=== PATIENT | female | born 1980 | race Caucasian/White ===

== ENCOUNTER 2016-11-24 07:30 | Emergency (ER) | payer OTHER ==
[~2016-11-24] VITALS: Ht 165.1 cm; Wt 100.4 kg
[~2016-11-24 07:30] MED LIST: ONDA8TAB7 PO
[2016-11-24 07:32] VITALS: TEMP 36.7; Ht 165.1 cm; Wt 100.4 kg
[2016-11-24] MEDS ORDERED: ZFR/8 PO (07:46)
[2016-11-24] MEDS ORDERED: KETOROLAC TROMETHAMINE 30 MG/ML VIAL IV STA (07:53)
[2016-11-24] MEDS ORDERED: HYDROmorphone INJ 1 MG/ML SYR IV STA (07:53)
[2016-11-24] MEDS ORDERED: DiphenhydrAMINE HCL 50 MG/ML VIAL IV STA (07:53)
[2016-11-24 08:22] LABS: BASO % 0.4 %; BASO ABS # 0.02 K/uL (0-0.2); COMPLETE YES; EOS % 0.2 %; HEMATOCRIT 42.5 % (37-47); IG% 0.2 %; LYMPH % 26.6 %; LYMPH ABS # 1.44 K/uL (1.2-3.4); MEAN CELL VOLUME 89.1 fL (80-100); MEAN CORPUSCULAR HEMOGLOBIN 30.4 pg (25-34); MEAN CORPUSCULAR HGB CONC 34.1 g/dl (32-36); MEAN PLATELET VOLUME 10.3 fL (7.4-10.4); MONO % 9.4 %; NEUT % 63.2 %; PLATELET COUNT 198 K/uL (130-400); RED BLOOD COUNT 4.77 M/uL (4.2-5.4); WHITE BLOOD COUNT 5.42 K/uL (4.8-10.8)
--- NOTE | 2016-11-24 08:26 | DIAGNOSTIC IMAGING REPORT ---
SINGLE VIEW CHEST CLINICAL HISTORY: Dyspnea. FINDINGS: An AP, portable, upright chest radiograph is compared to study dated 09/24/2015 and correlated with chest CT dated 01/05/2013. The examination is degraded by portable technique, large body habitus, and patient rotation. The cardiomediastinal silhouette is unremarkable. The lungs and pleural spaces are clear. No pneumothorax is seen. The bony thorax is grossly intact. IMPRESSION: No active disease in the chest. Electronically signed by: Carlton Berry M.D. 11/24/2016 8:24 AM Dictated Date/Time: 11/24/2016 8:23 AM
[2016-11-24 08:35] LABS: URINE APPEARANCE CLEAR (CLEAR); URINE BILIRUBIN NEG (NEG); URINE COLOR YELLOW; URINE EPITHELIAL CELL AUTO >30 /lpf (0-5); URINE NITRITE NEG (NEG); URINE SPECIFIC GRAVITY 1.015 (1.000-1.030); UROBILINOGEN NEG (NEG)
[2016-11-24 08:37] LABS: MANUAL MICROSCOPIC REQUIRED? NO; REVIEW REQ? NO
[2016-11-24 08:38] LABS: ALT/SGPT 20 U/L (12-78); BLOOD UREA NITROGEN 13 mg/dl (7-18); BUN/CREATININE RATIO 20.8 (10-20); CARBON DIOXIDE 24 mmol/L (21-32); CHLORIDE 109 mmol/L (98-107); GLUCOSE 86 mg/dl (70-99); SODIUM 139 mmol/L (136-145)
[2016-11-24 08:39] LABS: CALCIUM 8.4 mg/dl (8.5-10.1)
[2016-11-24 08:41] LABS: ALKALINE PHOSPHATASE 56 U/L (45-117); AST/SGOT 12 U/L (15-37)
[2016-11-24] MEDS ORDERED: SULFAMETHOXAZOLE/TRIMETHOPRIM DS 800/160MG TAB PO STA (09:05)
[2016-11-24] MEDS ORDERED: SULF800T23 PO (09:09)
[2016-11-24 09:10] VITALS: BP 178/120; PULSE 69; O2SAT 96
--- NOTE | 2016-11-24 09:20 | EMERGENCY ROOM VISIT NOTE ---
History Report prepared by Rosie: Malika Dillon Under the Supervision of: Dr. Elbert Vallejo M.D. First contact with patient: 07:36 Chief Complaint: HEADACHE Stated Complaint: MIGRAINE History of Present Illness The patient is a 36 year old female who presents to the Emergency Room with complaints of persistent headache starting yesterday. The patient has a history of migraines since she was a teenager. She has been to the ED previously for her migraines. She also follows with neurology. Her migraines often start with atmospheric pressure changes. She reports that yesterday her symptoms were different. She had diaphoresis, chills, and shaking. Currently, she has a right sided headache which is typical for her migraines. She denies any fevers, neck pain, cough, or sore throat. Source of History: patient Onset: yesterday Position: head Quality: ache Timing: other (persistent) Associated Symptoms: + chills, + diaphoresis, No cough, No fevers, No neck pain, No sorethroat Note: Pt reports shaking. Review of Systems See HPI for pertinent positives & negatives. A total of 10 systems reviewed and were otherwise negative. Past Medical & Surgical Medical Problems: (1) Alcohol intoxication (2) Alcohol intoxication (3) Anxiety (4) Cholecystectomy (5) Depressive Disorder Nec (6) Fractured nasal bones (7) Hypokalemia (8) Infected sebaceous cyst of skin (9) IVDU (intravenous drug user) (10) Migraine (11) Migraine (12) Migraine Unspecified W/O Intractable Migraine (13) Ureteral calculus, right (14) Ureteral calculus, right (15) Vasovagal syncope (16) Vasovagal syncope Family History Cancer Gallbladder disease Hypertension Social History Smoking Status: Current Every Day Smoker Alcohol Use: none Drug Use: none Marital Status: in relationship Housing Status: lives with significant other Occupation Status: employed Current/Historical Medications Scheduled Cetirizine (Zyrtec), 10 MG PO QAM Clonazepam (Clonazepam), 1 MG PO HS Lamotrigine (Lamictal), 100 MG PO BID Levonorgestrel (Iud) (Gris), 1 DOSE VAGRING [id number] Sulfa/Trimethoprim (Bactrim Ds 800MG/160MG), 1 TAB PO BID Venlafaxine Hcl (Effexor Extended Rel), 150 MG PO DAILY Scheduled PRN Acetamin/Butalbital/Caffeine (Fioricet), 1 TAB PO UD PRN for Migraine Ibuprofen Tab (Advil), 800 MG PO Q8 PRN for Headache Ondansetron (Ondansetron HCl), 8 MG PO Q6H PRN for Nausea Rizatriptan Benzoate (Rizatriptan Benzoate), 10 MG PO UD PRN for Migraine Allergies Coded Allergies: Sumatriptan (Verified Allergy, Intermediate, RED RASH, 11/24/16) Physical Exam Vital Signs Date Time Temp Pulse Resp B/P Pulse Ox O2 Delivery O2 Flow Rate FiO2 11/24/16 09:10 69 18 178/120 96 Room Air 11/24/16 08:27 61 11/24/16 07:32 36.7 76 18 159/101 98 Room Air Physical Exam GENERAL: Patient is a healthy-appearing well-nourished HEAD: Normocephalic atraumatic. No evidence of meningitis or encephalitis on exam. EYES: Ocular movements intact pupils equal and react to light OROPHARYNX mucous membranes are moist no exudates present no erythema or edema present NECK: Supple no nuchal rigidity CHEST: Good equal expansion LUNGS: Clear and equal to auscultation CARDIAC: Normal S1 and S2 ABDOMEN: Soft nontender no guarding BACK: No CVA tenderness EXTREMITIES: No pain upon palpation normal muscle strength in all groups no clubbing cyanosis or edema NEURO: Patient is following commands is answering questions appropriately. Alert and oriented x3 Cranial Nerves 2-12 grossly intact Medical Decision & Procedures ER Provider Diagnostic Interpretation: X-ray results as stated below per interpretation by me and the radiologist: SINGLE VIEW CHEST CLINICAL HISTORY: Dyspnea. FINDINGS: An AP, portable, upright chest radiograph is compared to study dated 09/24/2015 and correlated with chest CT dated 01/05/2013. The examination is degraded by portable technique, large body habitus, and patient rotation. The cardiomediastinal silhouette is unremarkable. The lungs and pleural spaces are clear. No pneumothorax is seen. The bony thorax is grossly intact. IMPRESSION: No active disease in the chest. Electronically signed by: Carlton Berry M.D. 11/24/2016 8:24 AM Dictated Date/Time: 11/24/2016 8:23 AM Laboratory Results 11/24/16 08:10 Red Blood Count 4.77, Mean Corpuscular Volume 89.1, Mean Corpuscular Hemoglobin 30.4, Mean Corpuscular Hemoglobin Concent 34.1, Mean Platelet Volume 10.3, Neutrophils (%) (Auto) 63.2, Lymphocytes (%) (Auto) 26.6, Monocytes (%) (Auto) 9.4, Eosinophils (%) (Auto) 0.2, Basophils (%) (Auto) 0.4, Neutrophils # (Auto) 3.43, Lymphocytes # (Auto) 1.44, Monocytes # (Auto) 0.51, Eosinophils # (Auto) 0.01, Basophils # (Auto) 0.02 11/24/16 08:10 Test 11/24/16 08:10 11/24/16 08:17 White Blood Count 5.42 K/uL (4.8-10.8) Red Blood Count 4.77 M/uL (4.2-5.4) Hemoglobin 14.5 g/dL (12.0-16.0) Hematocrit 42.5 % (37-47) Mean Corpuscular Volume 89.1 fL (80-100) Mean Corpuscular Hemoglobin 30.4 pg (25-34) Mean Corpuscular Hemoglobin Concent 34.1 g/dl (32-36) Platelet Count 198 K/uL (130-400) Mean Platelet Volume 10.3 fL (7.4-10.4) Neutrophils (%) (Auto) 63.2 % Lymphocytes (%) (Auto) 26.6 % Monocytes (%) (Auto) 9.4 % Eosinophils (%) (Auto) 0.2 % Basophils (%) (Auto) 0.4 % Neutrophils # (Auto) 3.43 K/uL (1.4-6.5) Lymphocytes # (Auto) 1.44 K/uL (1.2-3.4) Monocytes # (Auto) 0.51 K/uL (0.11-0.59) Eosinophils # (Auto) 0.01 K/uL (0-0.5) Basophils # (Auto) 0.02 K/uL (0-0.2) RDW Standard Deviation 45.7 fL (36.4-46.3) RDW Coefficient of Variation 14.0 % (11.5-14.5) Immature Granulocyte % (Auto) 0.2 % Immature Granulocyte # (Auto) 0.01 K/uL (0.00-0.02) Anion Gap 6.0 mmol/L (3-11) Est Creatinine Clear Calc Drug Dose 149.2 ml/min Estimated GFR () 134.0 Estimated GFR (Non- 115.6 BUN/Creatinine Ratio 20.8 (10-20) Calcium Level 8.4 mg/dl (8.5-10.1) Total Bilirubin 0.3 mg/dl (0.2-1) Direct Bilirubin < 0.1 mg/dl (0-0.2) Aspartate Amino Transf (AST/SGOT) 12 U/L (15-37) Alanine Aminotransferase (ALT/SGPT) 20 U/L (12-78) Alkaline Phosphatase 56 U/L (45-117) Total Protein 7.2 gm/dl (6.4-8.2) Albumin 3.6 gm/dl (3.4-5.0) Lipase 87 U/L (73-393) Urine Color YELLOW Urine Appearance CLEAR (CLEAR) Urine pH 7.0 (4.5-7.5) Urine Specific [place] 1.015 (1.000-1.030) Urine Protein NEG (NEG) Urine Glucose (UA) NEG (NEG) Urine Ketones NEG (NEG) Urine Occult Blood NEG (NEG) Urine Nitrite NEG (NEG) Urine Bilirubin NEG (NEG) Urine Urobilinogen NEG (NEG) Urine Leukocyte Esterase MODERATE (NEG) Urine WBC (Auto) 5-10 /hpf (0-5) Urine RBC (Auto) 0-4 /hpf (0-4) Urine Hyaline Casts (Auto) 1-5 /lpf (0-5) Urine Epithelial Cells (Auto) >30 /lpf (0-5) Urine Bacteria (Auto) NEG (NEG) Urine Test NEG (NEG) Labs reviewed by ED physician. Medications Administered Medications (Trade) Dose Ordered Sig/Ron Route Start Time Stop Time Status Last Admin Dose Admin Hydromorphone HCl (Dilaudid Inj) 1 mg NOW STAT IV 11/24/16 07:53 11/24/16 07:55 DC 11/24/16 08:22 1 MG Diphenhydramine HCl (Benadryl Inj) 50 mg NOW STAT IV 11/24/16 07:53 11/24/16 07:55 DC 11/24/16 08:22 50 MG Ketorolac Tromethamine (Toradol Inj) 30 mg NOW STAT IV 11/24/16 07:53 11/24/16 07:55 DC 11/24/16 08:22 30 MG Trimethoprim/ Sulfamethoxazole (Septra Ds 800/ 160MG Tab) 1 tab NOW STAT PO 11/24/16 09:05 11/24/16 09:06 DC 11/24/16 09:14 1 TAB ED Course 0748: Past medical records reviewed. The patient was evaluated in room B5. A complete history and physical examination was performed. 0753: Toradol Inj 30 mg IV, Benadryl Inj 50 mg IV, Dilaudid Inj 1 mg IV. 0848: Upon reexamination the patient is resting comfortably. I discussed results and treatment plan with the patient. She verbalizes agreement and understanding. The patient is ready for discharge. 0905: Trimethoprim/Sulfamethoxazole 1 tab PO. Medical Decision Differential diagnosis: Etiologies such as migraine headache, meningitis, sinusitis, CO exposure, ICH, SAH, infection, tumor, headache, sinus thrombosis, arterial dissection, as well as others were entertained. This is a 36-year-old female who presents to see department complaining of she complaining of headache. The patient reports that this is a normal migraine for her however she also had what sounded like riders. Upon arrival to the emergency department the patient has no evidence of meningitis encephalitis on examination. An IV was established, patient given normal saline bolus, Dilaudid , Toradol, Benadryl. Repeat examination revealed improvement patient's symptoms. The patient has a normal CBC and does not have an elevation in her white blood count however she does appear to have a urinary tract infection. For this reason the patient was placed on Bactrim pending urine culture results. Patient family were in agreement with the treatment plan. Impression Primary Impression: UTI (urinary tract infection) Additional Impression: Headache Scribe Attestation The scribe's documentation has been prepared under my direction and personally reviewed by me in its entirety. I confirm that the note above accurately reflects all work, treatment, procedures, and medical decision making performed by me. Departure Information Dispostion Home / Self-Care Prescriptions Sulfa/Trimethoprim (Bactrim Ds 800MG/160MG) Tab 1 TAB PO BID for 7 Days, #14 TAB Prov: Elbert Vallejo MD 11/24/16 Referrals Delano Roberts III, CRNP (PCP) Forms HOME CARE DOCUMENTATION FORM, IMPORTANT VISIT INFORMATION, School Instructions, Work Instructions Patient Instructions ED UTI Cystitis Female, Headache Migraine Meds Lifestyle, Headache Migraine Triggers Prevent, Headaches Migraine and Tension, My [facility] Additional Instructions You received narcotic or benzodiazepene medication while in the emergency room today. Do not drive, operate heavy machinery, or drink alcohol under the influence of this medication. Culture results are usually available in approx 48 hours You have been examined and treated today on an emergency basis only. This is not a substitute for, or an effort to provide, complete comprehensive medical care. It is impossible to recognize and treat all injuries or illnesses in a single emergency department visit. It is therefore important that you follow up closely with Dr Roberts. Call as soon as possible for an appointment. Thank you for your time and consideration. I look forward to speaking with you again soon. Please don't hesitate to call us if you have any questions. Problem Qualifiers Primary Impression: UTI (urinary tract infection) Urinary tract infection type: acute cystitis Hematuria presence: without hematuria Qualified Codes: N30.00 - Acute cystitis without hematuria Additional Impression: Headache Headache type: unspecified Headache chronicity pattern: unspecified pattern Intractability: not intractable Qualified Codes: R51 - Headache
[2016-12-06] MEDS ORDERED: CETI10TA84 PO (11:04)
[2016-12-06] MEDS ORDERED: LEVO1IUD INT UTER (12:31)
[2016-12-06] MEDS ORDERED: LAMO100T16 PO (12:57)
[2016-12-06] MEDS ORDERED: VENL150C56 PO (13:02)
[2016-12-06] MEDS ORDERED: IBUP-103 PO (16:38)
[2016-12-06] MEDS ORDERED: RIZA10TA21 PO (17:00)
[2016-12-06] MEDS ORDERED: KLN1X PO (17:00)
[2016-12-06] MEDS ORDERED: FRCT/ PO (17:03)
== END 2016-11-24 09:18 | disposition home or self-care (01) ==
LOC: C.EDB 07:32
DX: R51 Headache (principal); N39.0 Urinary tract infection, site not specified; F41.9 Anxiety disorder, unspecified; F32.9 Major depressive disorder, single episode, unspecified; Z87.81 Personal history of (healed) traumatic fracture; Z87.442 Personal history of urinary calculi

== ENCOUNTER 2016-12-08 09:14 | Emergency (ER) | payer OTHER ==
[~2016-12-08] VITALS: Ht 165.1 cm; Wt 100.0 kg
[~2016-12-08 09:14] MED LIST changes: +CETI10TA84 PO; +FRCT/ PO; +IBUP-103 PO; +KLN1X PO; +LAMO100T16 PO; +LEVO1IUD INT UTER; -ONDA8TAB7 PO; +RIZA10TA21 PO; +VENL150C56 PO
[2016-12-08 09:19] VITALS: TEMP 36.6; Ht 165.1 cm; Wt 100.0 kg
--- NOTE | 2016-12-08 09:53 | EMERGENCY ROOM VISIT NOTE ---
History Report prepared by Giselleibfreeman: Mic Weaver Under the Supervision of: Dr. Evonne Aiken D.O. First contact with patient: 09:40 Chief Complaint: HEADACHE Stated Complaint: MIGRAINE, VOMITING, CHILLS, FEVER History of Present Illness The patient is a 36 year old female who presents to the Emergency Room with complaints of a persistent migraine headache for the past 3-4 days. The pain is localized to the right frontal area, which is common for her migraines. The patient has been experiencing migraines since she was a teenager, but she has not had one this bad in a while. She has had migraines that have lasted for weeks in the past. She was in the ED with the migraine on day two, two days ago. She was given her usual cocktail which initially helped. She started feeling bad again last night. The patient has also been experiencing nausea, photophobia, and noise sensitivity, which are common migraine symptoms for her. She vomited 4-5 times last night. The patient states that rainy weather and stress are triggers for her migraines. She was able to keep a lot of fluids down. She has been having some diarrhea recently which is not a typical migraine symptom for her. She denies recent cough or cold symptoms, urinary symptoms, any unusual swelling, numbness or tingling. She denies recent trauma or head injury. The patient follows up with a Neurologist and takes daily Lamictal. Source of History: patient Onset: 3-4 days ago Position: head Quality: other (migraine) Timing: other (persistent) Associated Symptoms: + diarrhea, + nausea, + vomiting, No cough, No numbness , No urinary symptoms, No weakness Review of Systems See HPI for pertinent positives & negatives. A total of 10 systems reviewed and were otherwise negative. Past Medical & Surgical Medical Problems: (1) Alcohol intoxication (2) Alcohol intoxication (3) Anxiety (4) Cholecystectomy (5) Depressive Disorder Nec (6) Fractured nasal bones (7) Hypokalemia (8) Infected sebaceous cyst of skin (9) IVDU (intravenous drug user) (10) Migraine (11) Migraine (12) Migraine Unspecified W/O Intractable Migraine (13) Ureteral calculus, right (14) Ureteral calculus, right (15) Vasovagal syncope (16) Vasovagal syncope Family History Cancer Gallbladder disease Hypertension Social History Smoking Status: Current Every Day Smoker Alcohol Use: none Drug Use: none Marital Status: in relationship Housing Status: lives with significant other Occupation Status: employed Current/Historical Medications Scheduled Cetirizine (Zyrtec), 10 MG PO QAM Clonazepam (Clonazepam), 1 MG PO HS Lamotrigine (Lamictal), 100 MG PO BID Levonorgestrel (Iud) (Gris), 13 MG INT UTER [id number] Venlafaxine Hcl (Effexor Extended Rel), 150 MG PO DAILY Scheduled PRN Acetamin/Butalbital/Caffeine (Fioricet), 1 TAB PO UD PRN for Migraine Ibuprofen Tab (Advil), 800 MG PO Q8 PRN for Headache Rizatriptan Benzoate (Rizatriptan Benzoate), 10 MG PO UD PRN for Migraine Allergies Coded Allergies: Sumatriptan (Verified Allergy, Intermediate, RED RASH, 12/08/16) Physical Exam Vital Signs Date Time Temp Pulse Resp B/P Pulse Ox O2 Delivery O2 Flow Rate FiO2 12/08/16 14:41 72 18 153/93 96 12/08/16 13:03 65 18 151/108 93 Room Air 12/08/16 11:33 60 20 152/100 94 Room Air 12/08/16 09:19 36.6 72 18 189/113 96 Room Air Physical Exam GENERAL: alert, well appearing, well nourished, no distress, non-toxic EYE EXAM: normal conjunctiva, PERRL and EOM's grossly intact OROPHARYNX: no exudate, no erythema, lips, buccal mucosa, and tongue normal and mucous membranes are moist NECK: supple, no nuchal rigidity, no adenopathy, non-tender LUNGS: Clear to auscultation. Normal chest wall mechanics HEART: no murmurs, S1 normal and S2 normal ABDOMEN: abdomen soft, non-tender, normo-active bowel sounds, no masses, no rebound or guarding. BACK: Back is symmetrical on inspection and there is no deformity, no midline tenderness, no CVA tenderness. SKIN: no rashes and no bruising UPPER EXTREMITIES: upper extremities are grossly normal. LOWER EXTREMITIES: No pitting edema. NEURO EXAM: Normal sensorium, cranial nerves II-XII grossly intact, normal speech, no facial droop, no gross weakness of arms, no gross weakness of legs. No drift. Finger to nose intact. Gross sensation intact. Medical Decision & Procedures Medications Administered Medications (Trade) Dose Ordered Sig/Ron Route Start Time Stop Time Status Last Admin Dose Admin Sodium Chloride (Nss 1000ml) 1,000 ml @ 999 mls/hr Q1H1M STAT IV 12/08/16 09:54 12/08/16 10:54 DC 12/08/16 10:26 999 MLS/HR Ketorolac Tromethamine (Toradol Inj) 30 mg NOW STAT IV 12/08/16 09:54 12/08/16 09:57 DC 12/08/16 10:29 30 MG Dexamethasone Sodium Phosphate (Decadron Inj) 10 mg NOW ONCE IV 12/08/16 10:00 12/08/16 10:01 DC 12/08/16 10:29 10 MG Diphenhydramine HCl (Benadryl Inj) 25 mg NOW STAT IV 12/08/16 09:54 12/08/16 09:57 DC 12/08/16 10:27 25 MG Prochlorperazine Edisylate (Compazine Inj) 5 mg NOW STAT IV 12/08/16 09:54 12/08/16 09:57 DC 12/08/16 10:27 5 MG Lorazepam 0.5 mg 0.5 mg NOW STAT IV 12/08/16 09:54 12/08/16 09:57 DC 12/08/16 10:28 0.5 MG Sodium Chloride (Nss 1000ml) 1,000 ml @ 999 mls/hr Q1H1M STAT IV 12/08/16 12:17 12/08/16 13:17 DC 12/08/16 12:57 999 MLS/HR Ondansetron HCl (Zofran 8mg Iv) 8 mg NOW STAT IV 12/08/16 12:17 12/08/16 12:19 DC 12/08/16 12:56 8 MG Acetaminophen (Tylenol Tab) 1,000 mg NOW STAT PO 12/08/16 12:17 12/08/16 12:19 DC 12/08/16 12:56 1,000 MG ED Course 0945: The patient was evaluated in room B9. A complete history and physical exam was performed. 0954: Ativan 0.5 mg IV, Compazine 5 mg IV, Benadryl 25 mg IV, Toradol 30 mg IV, NSS 1000 ml @ 999 mls/hr. 1000: Decadron 10 mg IV. 1215: The patient's headache has not improved. 1217: Tylenol 1000 mg PO, Zofran 8 mg IV, NSS 1000 ml @ 999 mls/hr. 1405: The patient is feeling better. She would like to go home. Medical Decision Differential Diagnosis includes but is not limited to headache, tension headache , cluster headache, migraine, subarachnoid hemorrhage, meningitis, mass, central venous thrombus, concussion, trauma and epidural/subdural hemorrhage. Patient well-appearing here, no recent fevers or symptoms to suggest encephalitis/meningitis, not the worst headache of her life and no other risk factors for subarachnoid hemorrhage or central venous sinus thrombus. No recent trauma, patient with a nonfocal reassuring neuro exam at bedside, doubt CVA/dissection/cerebellar infarct or bleed. Patient improved here following IV fluids and medications. Patient unsteady gait and was tolerating by mouth at time of discharge. Discussed close follow-up with her neurologist, symptoms watch return for, she verbalized understanding was agreeable with plan. Review the EMR showed CT head done last year which is read as negative, and last MRI done 2 years ago which is normal. I did not feel patient's condition warranted repeat neuro imaging at this time. Impression Primary Impression: Headache Additional Impression: Migraine Scribe Attestation The scribe's documentation has been prepared under my direction and personally reviewed by me in its entirety. I confirm that the note above accurately reflects all work, treatment, procedures, and medical decision making performed by me. Departure Information Dispostion Home / Self-Care Referrals Delano Roberts III, CRNP (PCP) Forms HOME CARE DOCUMENTATION FORM, IMPORTANT VISIT INFORMATION, Work Instructions Patient Instructions My [facility] Additional Instructions Please follow-up with your neurologist given the chronicity of her headache at this time. Please continue using your daily medications including her headache medication should return. If you have any worsening pain, develop fevers, vision changes, dizziness, recurrent vomiting, or have any other new or concerning symptoms please return the emergency room. Work Instructions Return To Work: 1 day Lifting Limitations: none Problem Qualifiers Primary Impression: Headache Headache type: unspecified Headache chronicity pattern: acute headache Intractability: not intractable Qualified Codes: R51 - Headache Additional Impression: Migraine Migraine type: with aura Status migrainosus presence: without status migrainosus Intractability: not intractable Qualified Codes: G43.109 - Migraine with aura, not intractable, without status migrainosus
[2016-12-08] MEDS ORDERED: KETOROLAC TROMETHAMINE 30 MG/ML VIAL IV STA (09:54)
[2016-12-08] MEDS ORDERED: LORAZEPAM 2 MG/ML 1 ML VIAL IV STA (09:54)
[2016-12-08] MEDS ORDERED: PROCHLORPERAZINE 5 MG/ML 2 ML VIAL IV STA (09:54)
[2016-12-08] MEDS ORDERED: DiphenhydrAMINE HCL 50 MG/ML VIAL IV STA (09:54)
[2016-12-08] MEDS ORDERED: SODIUM CHLORIDE 0.9% 1000ML 1,000 ML IV STA ×2 (09:54→12:17)
[2016-12-08] MEDS ORDERED: DEXAMETHASONE SOD INJ 10 MG/ML VIAL IV ONE (10:00)
[2016-12-08] MEDS ORDERED: ONDANSETRON 8 MG/54 ML D5W IV STA (12:17)
[2016-12-08] MEDS ORDERED: ACETAMINOPHEN 500 MG TAB PO STA (12:17)
[2016-12-08 14:41] VITALS: BP 153/93; PULSE 72; O2SAT 96
== END 2016-12-08 14:42 | disposition home or self-care (01) ==
LOC: C.EDB 09:16
DX: G40.909 Epilepsy, unspecified, not intractable, without status epilepticus (principal); F32.9 Major depressive disorder, single episode, unspecified; F41.9 Anxiety disorder, unspecified; F17.200 Nicotine dependence, unspecified, uncomplicated; Z87.81 Personal history of (healed) traumatic fracture; Z87.442 Personal history of urinary calculi; Z90.49 Acquired absence of other specified parts of digestive tract; Z79.899 Other long term (current) drug therapy; Z88.8 Allergy status to other drugs, medicaments and biological substances; Z80.9 Family history of malignant neoplasm, unspecified; Z83.79 Family history of other diseases of the digestive system; Z82.49 Family history of ischemic heart disease and other diseases of the circulatory system

== ENCOUNTER 2016-12-20 13:10 | Emergency (ER) | payer OTHER ==
[~2016-12-20] VITALS: Ht 165.1 cm; Wt 99.4 kg
[2016-12-20 13:13] VITALS: Ht 165.1 cm; Wt 99.4 kg
[2016-12-20 13:52] LABS: BASO % 1.5 %; BASO ABS # 0.09 K/uL (0-0.2); COMPLETE YES; EOS % 0.2 %; HEMATOCRIT 43.5 % (37-47); IG% 0.2 %; LYMPH % 32.9 %; LYMPH ABS # 1.99 K/uL (1.2-3.4); MEAN CELL VOLUME 89.9 fL (80-100); MEAN CORPUSCULAR HEMOGLOBIN 30.6 pg (25-34); MEAN PLATELET VOLUME 10.2 fL (7.4-10.4); MONO % 8.6 %; NEUT % 56.6 %; PLATELET COUNT 210 K/uL (130-400); RED BLOOD COUNT 4.84 M/uL (4.2-5.4); WHITE BLOOD COUNT 6.04 K/uL (4.8-10.8)
[2016-12-20 13:57] LABS: URINE APPEARANCE CLOUDY (CLEAR); URINE BILIRUBIN NEG (NEG); URINE COLOR YELLOW; URINE EPITHELIAL CELL AUTO >30 /lpf (0-5); URINE NITRITE NEG (NEG); URINE PH 8.5 (4.5-7.5); URINE SPECIFIC GRAVITY 1.017 (1.000-1.030); UROBILINOGEN NEG (NEG); ZZUR CULT IF INDIC CLEAN CATCH YES
[2016-12-20 13:58] LABS: MANUAL MICROSCOPIC REQUIRED? NO; REVIEW REQ? YES
[2016-12-20 14:00] LABS: BUN/CREATININE RATIO 11.7 (10-20); CALCIUM 8.4 mg/dl (8.5-10.1); CREATININE 0.78 mg/dl (0.60-1.20); POTASSIUM 3.8 mmol/L (3.5-5.1)
[2016-12-20 14:03] LABS: ALB/GLOB RATIO 1.1 (0.9-2)
[2016-12-20 14:17] VITALS: TEMP 36.6
[2016-12-20] MEDS ORDERED: SODIUM CHLORIDE 0.9% 1000ML 1,000 ML IV STA (14:20)
[2016-12-20] MEDS ORDERED: LOSARTAN POTASSIUM 25 MG TAB PO STA (14:46)
[2016-12-20] MEDS ORDERED: LOSA25TA18 PO (16:00)
[2016-12-20 16:07] VITALS: BP 174/128; PULSE 75; O2SAT 98
--- NOTE | 2016-12-20 17:45 | EMERGENCY ROOM VISIT NOTE ---
History Report prepared by Rosie: Malika Dillon Under the Supervision of: Dr. Carlton France M.D. First contact with patient: 14:17 Chief Complaint: DIZZY Stated Complaint: DIZZY,STUMBLING,BLURRY VISION,COUGHING UP BLOOD Nursing Triage Summary: pt awoke this 0530 with dizziness and blurred vision in both eyes pt reports "coughing up blood" pt had episode of becoming overheated last pm which she thinks is related pt also has cut on left second toe she would like looked at History of Present Illness The patient is a 36 year old female who presents to the Emergency Room with complaints of persistent dizziness starting this morning. She also reports blurry vision and stumbling. Last night she had an episode of feeling overheated. She became diaphoretic and had to sit down. She does not feel hot anymore, but developed these other symptoms this morning. She reports nausea. She denies any chest pain, urinary symptoms, vomiting, or diarrhea. She denies any falls. She also notes a cut on her toe over which she is concerned for infection. She is not on blood pressure medications. Source of History: patient Onset: this morning Position: other (global) Quality: other (dizziness) Timing: other (persistent) Associated Symptoms: + diaphoresis, + nausea, No chest pain, No diarrhea, No urinary symptoms, No vomiting Note: Pt reports blurry vision, stumbling, overheating. Review of Systems See HPI for pertinent positives & negatives. A total of 10 systems reviewed and were otherwise negative. Past Medical & Surgical Medical Problems: (1) Alcohol intoxication (2) Alcohol intoxication (3) Anxiety (4) Cholecystectomy (5) Depressive Disorder Nec (6) Fractured nasal bones (7) Hypokalemia (8) Infected sebaceous cyst of skin (9) IVDU (intravenous drug user) (10) Migraine (11) Migraine (12) Migraine Unspecified W/O Intractable Migraine (13) Ureteral calculus, right (14) Ureteral calculus, right (15) Vasovagal syncope (16) Vasovagal syncope Family History Cancer Gallbladder disease Hypertension Social History Smoking Status: Current Every Day Smoker Alcohol Use: none Drug Use: none Marital Status: in relationship Housing Status: lives with significant other Occupation Status: employed Current/Historical Medications Scheduled Cetirizine (Zyrtec), 10 MG PO QAM Clonazepam (Clonazepam), 1 MG PO HS Lamotrigine (Lamictal), 100 MG PO BID Levonorgestrel (Iud) (Gris), 13 MG INT UTER [id number] Losartan Potassium (Cozaar), 1 TAB PO DAILY Venlafaxine Hcl (Effexor Extended Rel), 150 MG PO DAILY Scheduled PRN Acetamin/Butalbital/Caffeine (Fioricet), 1 TAB PO UD PRN for Migraine Ibuprofen Tab (Advil), 800 MG PO Q8 PRN for Headache Rizatriptan Benzoate (Rizatriptan Benzoate), 10 MG PO UD PRN for Migraine Allergies Coded Allergies: Sumatriptan (Verified Allergy, Intermediate, RED RASH, 12/08/16) Physical Exam Vital Signs Date Time Temp Pulse Resp B/P Pulse Ox O2 Delivery O2 Flow Rate FiO2 12/20/16 16:07 75 18 174/128 98 12/20/16 15:23 65 18 172/123 99 Room Air 12/20/16 14:17 36.6 70 16 184/130 97 Room Air 12/20/16 13:13 36.7 90 18 191/119 96 Room Air Physical Exam GENERAL: Patient is in no acute distress. HEENT: No acute trauma, normocephalic atraumatic, mucous membranes moist, no nasal congestion, no scleral icterus. NECK: No stridor, no adenopathy, no meningismus, trachea is midline. LUNGS: Clear to auscultation bilaterally, no wheeze, no rhonchi, breath sounds equal. HEART: Without murmurs gallops or rubs, regular rate and rhythm. ABDOMEN: Soft, nontender, bowel sounds positive, no hernias, no peritonitis. EXTREMITIES: No cellulitis or edema, no evidence for fracture. There is an abrasion to the left 2nd toe without signs of infection. NEUROLOGIC: Oriented x 3, no acute motor or sensory deficits, no focal weakness. No cerebellar dysfunction or pronator drift. SKIN: No rash, no jaundice, no diaphoresis. Medical Decision & Procedures Laboratory Results 12/20/16 13:30 Red Blood Count 4.84, Mean Corpuscular Volume 89.9, Mean Corpuscular Hemoglobin 30.6, Mean Corpuscular Hemoglobin Concent 34.0, Mean Platelet Volume 10.2, Neutrophils (%) (Auto) 56.6, Lymphocytes (%) (Auto) 32.9, Monocytes (%) (Auto) 8.6, Eosinophils (%) (Auto) 0.2, Basophils (%) (Auto) 1.5, Neutrophils # (Auto) 3.42, Lymphocytes # (Auto) 1.99, Monocytes # (Auto) 0.52, Eosinophils # (Auto) 0.01, Basophils # (Auto) 0.09 12/20/16 13:30 Test 12/20/16 13:30 White Blood Count 6.04 K/uL (4.8-10.8) Red Blood Count 4.84 M/uL (4.2-5.4) Hemoglobin 14.8 g/dL (12.0-16.0) Hematocrit 43.5 % (37-47) Mean Corpuscular Volume 89.9 fL (80-100) Mean Corpuscular Hemoglobin 30.6 pg (25-34) Mean Corpuscular Hemoglobin Concent 34.0 g/dl (32-36) Platelet Count 210 K/uL (130-400) Mean Platelet Volume 10.2 fL (7.4-10.4) Neutrophils (%) (Auto) 56.6 % Lymphocytes (%) (Auto) 32.9 % Monocytes (%) (Auto) 8.6 % Eosinophils (%) (Auto) 0.2 % Basophils (%) (Auto) 1.5 % Neutrophils # (Auto) 3.42 K/uL (1.4-6.5) Lymphocytes # (Auto) 1.99 K/uL (1.2-3.4) Monocytes # (Auto) 0.52 K/uL (0.11-0.59) Eosinophils # (Auto) 0.01 K/uL (0-0.5) Basophils # (Auto) 0.09 K/uL (0-0.2) RDW Standard Deviation 44.2 fL (36.4-46.3) RDW Coefficient of Variation 13.4 % (11.5-14.5) Immature Granulocyte % (Auto) 0.2 % Immature Granulocyte # (Auto) 0.01 K/uL (0.00-0.02) Urine Color YELLOW Urine Appearance CLOUDY (CLEAR) Urine pH 8.5 (4.5-7.5) Urine Specific [place] 1.017 (1.000-1.030) Urine Protein NEG (NEG) Urine Glucose (UA) NEG (NEG) Urine Ketones NEG (NEG) Urine Occult Blood 1+ (NEG) Urine Nitrite NEG (NEG) Urine Bilirubin NEG (NEG) Urine Urobilinogen NEG (NEG) Urine Leukocyte Esterase MODERATE (NEG) Urine WBC (Auto) 5-10 /hpf (0-5) Urine RBC (Auto) 10-30 /hpf (0-4) Urine Hyaline Casts (Auto) 1-5 /lpf (0-5) Urine Epithelial Cells (Auto) >30 /lpf (0-5) Urine Bacteria (Auto) 1+ (NEG) Urine Renal Epithelial Cells /lpf (0-5) Anion Gap 6.0 mmol/L (3-11) Est Creatinine Clear Calc Drug Dose 114.2 ml/min Estimated GFR () 111.8 Estimated GFR (Non- 96.4 BUN/Creatinine Ratio 11.7 (10-20) Calcium Level 8.4 mg/dl (8.5-10.1) Total Bilirubin 0.4 mg/dl (0.2-1) Aspartate Amino Transf (AST/SGOT) 10 U/L (15-37) Alanine Aminotransferase (ALT/SGPT) 16 U/L (12-78) Alkaline Phosphatase 62 U/L (45-117) Total Protein 7.5 gm/dl (6.4-8.2) Albumin 3.9 gm/dl (3.4-5.0) Globulin 3.6 gm/dl (2.5-4.0) Albumin/Globulin Ratio 1.1 (0.9-2) Laboratory results reviewed by me. Medications Administered Medications (Trade) Dose Ordered Sig/Ron Route Start Time Stop Time Status Last Admin Dose Admin Sodium Chloride (Nss 1000ml) 1,000 ml @ 999 mls/hr Q1H1M STAT IV 12/20/16 14:20 12/20/16 15:20 DC 12/20/16 14:40 999 MLS/HR Losartan Potassium (coZAAR TAB) 25 mg NOW STAT PO 12/20/16 14:46 12/20/16 14:47 DC 12/20/16 15:25 25 MG ECG Indication: other (dizziness) Rate (beats per minute): 67 Rhythm: normal sinus Findings: no acute ischemic change, no ectopy, other (LVH) ED Course 1418: The patient was evaluated in room A4. A complete history and physical exam was performed. 1420: NSS 1000 ml @ 999 mls/hr IV. 1433: I discussed the patient's case with ASHVIN Mcgowan [facility] [place] - family medicine. He recommend the patient be started on Losartan 25 mg a day. An appointment was scheduled for the patient on 12/25 at 3:30 PM. 1446: Losartan Potassium 25 mg PO. 1551: I reevaluated the patient. I discussed results and discharge instructions : she verbalized understanding and agreement. The patient is ready for discharge. Medical Decision Differential diagnoses considered include dysrhythmia, infection, UTI, anemia, electrolyte imbalance, dehydration, stroke. . There is no leukocytosis or concerning anemia. No significant electrolyte abnormality, kidney failure, hepatitis. Urinalysis does not show evidence for infection. EKG shows a sinus rhythm, no acute ischemia. The patient was not febrile or toxic. On exam, there were no focal neurologic deficits to suggest stroke. The patient received IV saline. I felt she was likely dehydrated from her episode last evening. This caused her weakness and dizziness. The patient also may be experiencing some of her symptoms from her high blood pressure. Looking back at her old records, she has been hypertensive for some time with her ER visits. I did speak with her doctor's office. The patient is to be started on losartan and then seen in the office in a few days. She was given a 25 mg dose here in the emergency room. She took this dose orally. The patient is being discharged, she was reassured. If things are worsening, she should return for reassessment. Rest was encouraged. Consults Time Called: [phone] Consulting Phys[facility] Returned Call: [phone] I discussed the patient's case with him. He recommend the patient be started on Losartan 25 mg a day. An appointment was scheduled for the patient on 12/25 at 3: 30 PM. Impression Primary Impression: Dizziness Additional Impressions: Dehydration Hypertension Scribe Attestation The scribe's documentation has been prepared under my direction and personally reviewed by me in its entirety. I confirm that the note above accurately reflects all work, treatment, procedures, and medical decision making performed by me. Departure Information Dispostion Home / Self-Care Prescriptions Losartan Potassium (COZAAR) 25 Mg Tab 1 TAB PO DAILY for 15 Days, #15 TAB 1 Refill Prov: Carlton France M.D. 12/20/16 Referrals Delano Roberts III, CRNP (PCP) Forms HOME CARE DOCUMENTATION FORM, IMPORTANT VISIT INFORMATION, Work Instructions Patient Instructions My [facility] Additional Instructions stay well hydrated rest Losartan daily for the blood pressure return if worsening lab testing today was all ok see your doctor 12/25 at 320 pm--report to the office Problem Qualifiers
== END 2016-12-20 16:08 | disposition home or self-care (01) ==
LOC: C.EDB 13:12 → C.EDA 16:08
DX: R42 Dizziness and giddiness (principal); E86.0 Dehydration; I10 Essential (primary) hypertension; F41.9 Anxiety disorder, unspecified; F32.9 Major depressive disorder, single episode, unspecified; Z87.81 Personal history of (healed) traumatic fracture; Z87.442 Personal history of urinary calculi; F17.200 Nicotine dependence, unspecified, uncomplicated; Z88.8 Allergy status to other drugs, medicaments and biological substances; Z80.9 Family history of malignant neoplasm, unspecified; Z83.79 Family history of other diseases of the digestive system; Z82.49 Family history of ischemic heart disease and other diseases of the circulatory system

== ENCOUNTER 2016-12-21 16:59 | Emergency (ER) | payer OTHER ==
[~2016-12-21] VITALS: Ht 165.1 cm; Wt 99.0 kg
[~2016-12-21 16:59] MED LIST changes: +LOSA25TA18 PO
[2016-12-21 17:02] VITALS: TEMP 36.8; Ht 165.1 cm; Wt 99.0 kg
[2016-12-21] MEDS ORDERED: KETOROLAC TROMETHAMINE 30 MG/ML VIAL IV STA (17:21)
--- NOTE | 2016-12-21 17:23 | EMERGENCY ROOM VISIT NOTE ---
History Report prepared by Rosie: Courtney Keene Under the Supervision of: Dr. Tiffanie Vasquez D.O. First contact with patient: 17:08 Chief Complaint: HYPERTENSION Stated Complaint: BP PROBLEMS History of Present Illness The patient is a 36 year old female who presents to the Emergency Room with complaints of constant high blood pressure beginning yesterday. The patient was in the ED yesterday for similar symptoms and dizziness. She was told to come back to the ED if her symptoms worsened and if she began to have a pounding headache. Her PCP nurse also called to follow up with her symptoms today and advised her to come to the ED. The patient today began to experience a pounding headache. She is experiencing nausea and yesterday the patient vomited blood. The patient is a smoker. She denies being on a blood thinner. medication for hypertension, Sudafed use, diet supplements, new over the counter medications or new supplements. The patient does note she has been taking Zyrtec for a long time and recently switched to Claritin before switching back to Zyrtec 5 days ago. She does note that she is getting in 3 months and is stressed out from planning the wedding. The patient has a family history of hypertension. Source of History: patient Onset: yesterday Position: other (global) Quality: other (high blood pressure) Timing: constant Associated Symptoms: + headache, + nausea, + vomiting Review of Systems See HPI for pertinent positives & negatives. A total of 10 systems reviewed and were otherwise negative. Past Medical & Surgical Medical Problems: (1) Alcohol intoxication (2) Alcohol intoxication (3) Anxiety (4) Cholecystectomy (5) Depressive Disorder Nec (6) Fractured nasal bones (7) Hypokalemia (8) Infected sebaceous cyst of skin (9) IVDU (intravenous drug user) (10) Migraine (11) Migraine (12) Migraine Unspecified W/O Intractable Migraine (13) Ureteral calculus, right (14) Ureteral calculus, right (15) Vasovagal syncope (16) Vasovagal syncope Family History Cancer Gallbladder disease Hypertension Social History Smoking Status: Current Every Day Smoker Alcohol Use: none Drug Use: none Marital Status: in relationship Housing Status: lives with significant other Occupation Status: employed Current/Historical Medications Scheduled Cetirizine (Zyrtec), 10 MG PO QAM Clonazepam (Clonazepam), 1 MG PO HS Lamotrigine (Lamictal), 100 MG PO BID Levonorgestrel (Iud) (Gris), 13 MG INT UTER [id number] Losartan Potassium (Cozaar), 1 TAB PO DAILY Venlafaxine Hcl (Effexor Extended Rel), 150 MG PO DAILY Scheduled PRN Acetamin/Butalbital/Caffeine (Fioricet), 1 TAB PO UD PRN for Migraine Ibuprofen Tab (Advil), 800 MG PO Q8 PRN for Headache Rizatriptan Benzoate (Rizatriptan Benzoate), 10 MG PO UD PRN for Migraine Allergies Coded Allergies: Sumatriptan (Verified Allergy, Intermediate, RED RASH, 12/21/16) Physical Exam Vital Signs Date Time Temp Pulse Resp B/P Pulse Ox O2 Delivery O2 Flow Rate FiO2 12/21/16 20:28 82 18 157/113 99 12/21/16 19:33 70 18 170/138 99 Room Air 12/21/16 18:13 60 16 147/100 96 Room Air 12/21/16 17:51 65 12/21/16 17:02 36.8 80 20 175/114 97 Room Air Physical Exam HEENT: Head - normocephalic and atraumatic Pupils are equal, round, and reactive to light. Extraocular eye muscles are intact, and sclera are anicteric. Nose - moist nasal mucosa without discharge. Mouth - moist buccal mucosa. Oropharynx is nonerythematous and there is no tonsillar exudate or edema noted. Neck: Supple; no JVD, nuchal rigidity, cervical lymphadenopathy. Heart: Regular rate and rhythm. There is a normal S1 and S2 with no murmurs, clicks, or gallops appreciated. Lungs: Clear to auscultation bilaterally with no wheezes, rales, or rhonchi. Abdomen: Soft, completely nontender, nondistended, with good bowel sounds. There are no palpable pulsatile masses or hepatosplenomegaly. There is no guarding, rigidity, or rebound noted. Extremities: No evidence of cyanosis, clubbing, or edema. There are easily palpable peripheral pulses. Skin: warm and dry with good turgor and no rashes. Medical Decision & Procedures ER Provider Diagnostic Interpretation: X-ray results as stated below per interpretation by me and the radiologist: CHEST 2 VIEWS ROUTINE CLINICAL HISTORY: hemoptysis dyspnea COMPARISON STUDY: 11/24/2016 FINDINGS: The bones soft tissues and hemidiaphragms are normal. The cardiomediastinal silhouette is normal. The lungs are clear. The pulmonary vasculature is normal. IMPRESSION: Negative chest. Electronically signed by: Sandro Segura M.D. 12/21/2016 6:12 PM Dictated Date/Time: 12/21/2016 6:12 PM Laboratory Results Test 12/21/16 17:40 Total Creatine Kinase 61 U/L (26-192) Creatine Kinase MB < 0.5 ng/ml (0.5-3.6) Creatine Kinase MB Ratio (0-3.0) Troponin I < 0.015 ng/ml (0-0.045) Thyroid Stimulating Hormone (TSH) 2.420 uIu/ml (0.300-4.500) Laboratory results per my review. Medications Administered Medications (Trade) Dose Ordered Sig/Ron Route Start Time Stop Time Status Last Admin Dose Admin Ketorolac Tromethamine (Toradol Inj) 30 mg NOW STAT IV 12/21/16 17:21 12/21/16 17:22 DC 12/21/16 18:13 30 MG Hydralazine HCl (HydrALAZINE INJ) 10 mg NOW STAT IV. 12/21/16 19:36 12/21/16 19:38 DC 12/21/16 19:47 10 MG Ondansetron HCl (Zofran Inj) 4 mg NOW STAT IV 12/21/16 19:36 12/21/16 19:38 DC 12/21/16 19:47 4 MG Procedure Toradol Inj 30 mg IV, Zofran Inj 4 mg IV, Hydralazine Inj 10 mg IV. ECG Indication: other (hypertension) Rate (beats per minute): 64 Rhythm: normal sinus Findings: no acute ischemic change, no ectopy Change: no significant change ED Course 1713: Past medical records reviewed. The patient was evaluated in room C11. A complete history and physical exam was performed. An IV lock was initiated and labs are drones above. A twelve-lead EKG was obtained as described above. 1718: I reviewed multiple previous visits vital signs. History of hypertension with diastolic not typically greater than 100. 1721: Toradol Inj 30 mg IV For her headache. The patient went for a chest x- ray because of her complaint of hemoptysis. This was unremarkable. 1936: Zofran Inj 4 mg IV, Hydralazine Inj 10 mg IV. 2005: I reevaluated the patient. She is tearful, crying and red faced. She is angry that I would not give her Dilaudid for her headache. I discussed that she is on the no narcs plan and suggested she follows up with her PCP to be taken off the plan. I said I would treat her more for her hypertension and in turn the headache would probably improve. She refused and would like to go home. I recommended that the patient stay here in the emergency department for further treatment of her elevated blood pressure. I reviewed the risks of stroke and heart attack as a result of having such a high blood pressure. She told me that she didn't care and just wanted to be discharged. I told her that she could take a dose of her lower surgeon when she arrived home. I strongly recommended that she follow-up with her PCP in the morning to discuss her elevated blood pressures and blood pressure medications. she was told to return here to the emergency department if she developed chest pain or worsening symptoms. Medical Decision The patient is a 36 year old female who presents to the ED with hypertension. Differential diagnosis includes primary hypertension, anxiety, lung mass. Lab findings include THS normal 2.4, normal Troponin, normal CK and CK-MB. I reviewed multiple laboratory studies that were performed yesterday were unremarkable. The patient appears to have new onset hypertension. She does have a family history of this. I've encouraged her to limit stress and anxiety. I do believe that she will require very close following with the PCP and possible increased medication adjustments to control her blood pressure. Patient had no acute focal neurological findings associated with the headache. X-ray was unremarkable. I encouraged her to stop smoking since she described having some hemoptysis. She was told to return to the emergency department immediately if she had any worsening symptoms Impression Primary Impression: Uncontrolled hypertension Additional Impression: Headache Scribe Attestation The scribe's documentation has been prepared under my direction and personally reviewed by me in its entirety. I confirm that the note above accurately reflects all work, treatment, procedures, and medical decision making performed by me. Departure Information Dispostion Home / Self-Care Referrals Delano Roberts III, CRNP (PCP) Forms HOME CARE DOCUMENTATION FORM, IMPORTANT VISIT INFORMATION, WORK / SCHOOL INSTRUCTIONS Patient Instructions Hypertension Control, Hypertension Dc, My [facility] Additional Instructions Rest Avoid stress or anything that would increrase your blood pressure. You are at significant risk of having a stroke with such a high blood pressure. I suggested that we do more to treat your BP so that your head wouldn't hurt as much but you wanted to be discharged. As for your "No Narcotics" status- speak with your PCP and ask him to change your status with the ER. You may repeat the Losarten dose at home tonight. Follow up by phone with PCP in the AM. Return to the ER if you develop any worsening symptoms Problem Qualifiers
--- NOTE | 2016-12-21 18:14 | DIAGNOSTIC IMAGING REPORT ---
CHEST 2 VIEWS ROUTINE CLINICAL HISTORY: hemoptysis dyspnea COMPARISON STUDY: 11/24/2016 FINDINGS: The bones soft tissues and hemidiaphragms are normal. The cardiomediastinal silhouette is normal. The lungs are clear. The pulmonary vasculature is normal. IMPRESSION: Negative chest. Electronically signed by: Sandro Segura M.D. 12/21/2016 6:12 PM Dictated Date/Time: 12/21/2016 6:12 PM
[2016-12-21] MEDS ORDERED: HydrALAZINE HCL 20 MG/ML VIAL IV. STA (19:36)
[2016-12-21] MEDS ORDERED: ONDANSETRON INJ 2 MG/ML 2 ML VIAL IV STA (19:36)
[2016-12-21 20:28] VITALS: BP 157/113; PULSE 82; O2SAT 99
== END 2016-12-21 20:29 | disposition home or self-care (01) ==
LOC: C.EDB 17:01 → C.EDC 20:29
DX: I10 Essential (primary) hypertension (principal); R51 Headache; F41.9 Anxiety disorder, unspecified; F32.9 Major depressive disorder, single episode, unspecified; F17.200 Nicotine dependence, unspecified, uncomplicated; Z87.81 Personal history of (healed) traumatic fracture; Z79.899 Other long term (current) drug therapy; Z90.49 Acquired absence of other specified parts of digestive tract; Z87.442 Personal history of urinary calculi; Z88.8 Allergy status to other drugs, medicaments and biological substances; Z80.9 Family history of malignant neoplasm, unspecified; Z83.3 Family history of diabetes mellitus; Z82.49 Family history of ischemic heart disease and other diseases of the circulatory system

== ENCOUNTER 2017-03-19 09:41 | Emergency (ER) | payer OTHER ==
[~2017-03-19] VITALS: Ht 165.1 cm; Wt 101.7 kg
[~2017-03-19 09:41] MED LIST changes: +MXL10 PO; -RIZA10TA21 PO
[2017-03-19 09:46] VITALS: TEMP 36.5; Ht 165.1 cm; Wt 101.7 kg
[2017-03-19] MEDS ORDERED: SODIUM CHLORIDE 0.9% 500ML 500 ML IV STA (10:29)
[2017-03-19 11:04] LABS: BASO % 0.8 %; BASO ABS # 0.04 K/uL (0-0.2); COMPLETE YES; HEMATOCRIT 42.9 % (37-47); IG% 0.2 %; LYMPH % 26.9 %; LYMPH ABS # 1.33 K/uL (1.2-3.4); MEAN CELL VOLUME 91.5 fL (80-100); MEAN CORPUSCULAR HEMOGLOBIN 30.1 pg (25-34); MEAN CORPUSCULAR HGB CONC 32.9 g/dl (32-36); MEAN PLATELET VOLUME 10.1 fL (7.4-10.4); MONO % 10.9 %; NEUT % 61.2 %; PLATELET COUNT 223 K/uL (130-400); RED BLOOD COUNT 4.69 M/uL (4.2-5.4); WHITE BLOOD COUNT 4.94 K/uL (4.8-10.8)
[2017-03-19 11:12] LABS: BUN/CREATININE RATIO 11.6 (10-20); CALCIUM 8.5 mg/dl (8.5-10.1); CREATININE 0.66 mg/dl (0.60-1.20); MAGNESIUM 2.2 mg/dl (1.8-2.4)
[2017-03-19 11:15] LABS: ALB/GLOB RATIO 0.9 (0.9-2)
--- NOTE | 2017-03-19 11:29 | EMERGENCY ROOM VISIT NOTE ---
History First contact with patient: 10:06 Chief Complaint: BACK PAIN Stated Complaint: BACK SPASMS, BURNING/NUMBNESS IN LEG/FOOT History of Present Illness The patient is a 37 year old female who presents to the Emergency Room via private vehicle accompanied by female with complaints of "back spasms, burning/ numbness in left leg/foot". The patient states she has a history of low back problems, and notes that most recently she has a spasm of the musculature in the right inferior lumbar region. She is unaware of any exacerbating factors. There is been no trauma to the area. She denies any abdominal pain, fevers, chills, lower extremity weakness, bowel or bladder incontinence, numbness or tingling in genital region. She denies chance of . Review of Systems A complete 6-point Review of Systems was discussed with the patient, with pertinent positives and negatives listed in the History of Present Illness. All remaining Review of Systems questions can be considered negative unless otherwise specified. Past Medical/Surgical History Medical Problems: (1) Alcohol intoxication (2) Alcohol intoxication (3) Anxiety (4) Cholecystectomy (5) Depressive Disorder Nec (6) Fractured nasal bones (7) Hypokalemia (8) Infected sebaceous cyst of skin (9) IVDU (intravenous drug user) (10) Migraine (11) Migraine (12) Migraine Unspecified W/O Intractable Migraine (13) Ureteral calculus, right (14) Ureteral calculus, right (15) Vasovagal syncope (16) Vasovagal syncope Family History Cancer Gallbladder disease Hypertension Social History Smoking Status: Current Every Day Smoker Alcohol Use: none Drug Use: none Marital Status: in relationship Housing Status: lives with significant other Occupation Status: employed Current/Historical Medications Scheduled Cetirizine (Zyrtec), 10 MG PO QAM Clonazepam (Clonazepam), 1 MG PO HS Lamotrigine (Lamictal), 100 MG PO BID Levonorgestrel (Iud) (Gris), 13 MG INT UTER [id number] Losartan Potassium (Cozaar), 1 TAB PO DAILY Venlafaxine Hcl (Effexor Extended Rel), 150 MG PO DAILY Scheduled PRN Acetamin/Butalbital/Caffeine (Fioricet), 1 TAB PO UD PRN for Migraine Ibuprofen Tab (Advil), 800 MG PO Q8 PRN for Headache Rizatriptan Benzoate (Rizatriptan Benzoate), 10 MG PO UD PRN for Migraine Physical Exam Vital Signs Date Time Temp Pulse Resp B/P (MAP) Pulse Ox O2 Delivery O2 Flow Rate FiO2 03/19/17 11:40 67 16 158/92 95 Room Air 03/19/17 09:46 36.5 80 18 159/109 98 Room Air Physical Exam VITAL SIGNS - Vital signs and nursing notes were reviewed. Afebrile, hypertensive 159/109, non-tachycardic and saturating well on room air 98%. GENERAL -37-year-old female appearing her stated age who is in no acute distress. Communicates well with provider and answers questions appropriately. SKIN - Without rashes. Skin overlying the lumbar processes is unremarkable. HEAD - NC/AT. MUSCULOSKELETAL: there is tenderness/tense to palpation overlying the right paraspinous musculature. : LUNGS - Chest wall symmetric without accessory muscle use, intercostals retractions, or central cyanosis. Normal vesicular breath sounds CTA B/L. No wheezes, rales, or rhonchi appreciated. CARDIAC - RRR with S1/S2. No murmur, rubs, or gallops appreciated. ABDOMEN - Abdominal contour without pulsations or visible masses. BS normoactive all four quadrants. No tenderness, palpable masses, hepatosplenomegaly, or ascites noted. EXTREMITIES - No clubbing or peripheral cyanosis. No pretibial edema present. +5 /5 strength noted in UE/LE bilaterally. NEUROLOGIC - Cranial nerves II through XII grossly intact. Sensory intact to light touch throughout. Patellar reflexes +2/4. PSYCH - A&O and cooperates fully with examiner. Pt is very pleasant and interacts well with examiner. Eyes: normal inspection Medical Decision & Procedures Laboratory Results 03/19/17 10:45 Red Blood Count 4.69, Mean Corpuscular Volume 91.5, Mean Corpuscular Hemoglobin 30.1, Mean Corpuscular Hemoglobin Concent 32.9, Mean Platelet Volume 10.1, Neutrophils (%) (Auto) 61.2, Lymphocytes (%) (Auto) 26.9, Monocytes (%) (Auto) 10.9, Eosinophils (%) (Auto) 0.0, Basophils (%) (Auto) 0.8, Neutrophils # (Auto ) 3.02, Lymphocytes # (Auto) 1.33, Monocytes # (Auto) 0.54, Eosinophils # (Auto ) 0.00, Basophils # (Auto) 0.04 03/19/17 10:45 Test 03/19/17 10:45 White Blood Count 4.94 K/uL (4.8-10.8) Red Blood Count 4.69 M/uL (4.2-5.4) Hemoglobin 14.1 g/dL (12.0-16.0) Hematocrit 42.9 % (37-47) Mean Corpuscular Volume 91.5 fL (80-100) Mean Corpuscular Hemoglobin 30.1 pg (25-34) Mean Corpuscular Hemoglobin Concent 32.9 g/dl (32-36) Platelet Count 223 K/uL (130-400) Mean Platelet Volume 10.1 fL (7.4-10.4) Neutrophils (%) (Auto) 61.2 % Lymphocytes (%) (Auto) 26.9 % Monocytes (%) (Auto) 10.9 % Eosinophils (%) (Auto) 0.0 % Basophils (%) (Auto) 0.8 % Neutrophils # (Auto) 3.02 K/uL (1.4-6.5) Lymphocytes # (Auto) 1.33 K/uL (1.2-3.4) Monocytes # (Auto) 0.54 K/uL (0.11-0.59) Eosinophils # (Auto) 0.00 K/uL (0-0.5) Basophils # (Auto) 0.04 K/uL (0-0.2) RDW Standard Deviation 43.4 fL (36.4-46.3) RDW Coefficient of Variation 13.1 % (11.5-14.5) Immature Granulocyte % (Auto) 0.2 % Immature Granulocyte # (Auto) 0.01 K/uL (0.00-0.02) Anion Gap 7.0 mmol/L (3-11) Est Creatinine Clear Calc Drug Dose 135.3 ml/min Estimated GFR () 129.0 Estimated GFR (Non- 111.3 BUN/Creatinine Ratio 11.6 (10-20) Calcium Level 8.5 mg/dl (8.5-10.1) Magnesium Level 2.2 mg/dl (1.8-2.4) Total Bilirubin 0.3 mg/dl (0.2-1) Aspartate Amino Transf (AST/SGOT) 8 U/L (15-37) Alanine Aminotransferase (ALT/SGPT) 17 U/L (12-78) Alkaline Phosphatase 63 U/L (45-117) Total Protein 7.1 gm/dl (6.4-8.2) Albumin 3.4 gm/dl (3.4-5.0) Globulin 3.7 gm/dl (2.5-4.0) Albumin/Globulin Ratio 0.9 (0.9-2) Medications Administered Medications (Trade) Dose Ordered Sig/Ron Route Start Time Stop Time Status Last Admin Dose Admin Sodium Chloride 500 ml @ 999 mls/hr Q31M STAT IV 03/19/17 10:29 03/19/17 10:59 DC 03/19/17 10:29 999 MLS/HR Medical Decision Patient was seen and evaluated as above. After obtaining a thorough History and physical examination IV access was initiated, and the above workup was performed. Patient presents to us today with right paraspinous musculature spasm. She is otherwise healthy on examination. No emergent findings or neurovascular deficit. No evidence of cauda equina syndrome. I do not feel imaging is appropriate at this time is are no trauma, no abdominal pain or bony tenderness. She declined pain medication and muscle relaxers. Labs were obtained as the patient has tried Robaxin with minimal relief to exclude electrolyte abnormality. No abnormality noted to blood work. She appears stable for outpatient management. She is to follow-up with her family doctor. She was educated upon worrisome symptoms which to return, had questions on discharge, and was discharged home in good condition. She is to follow-up regarding her elevated blood pressure. In evaluation treatment this patient following differential diagnoses entertained: Cauda equina syndrome, lumbar strain, fracture, among others. Impression Primary Impression: Strain of lumbar region Additional Impression: Muscle spasm of back Departure Information Dispostion Home / Self-Care Condition GOOD Referrals Delano Roberts III, CRNP (PCP) Patient Instructions My [facility] Additional Instructions You have been treated in the Emergency Department for Back Pain. For pain control, you can use the following [id number] medicines (if >12 yo): - Regular strength (325mg/tab) Tylenol (acetaminophen) 2 tabs every 4-6 hours as needed. Do not exceed 12 tablets in a 24 hour period. Avoid taking more than 3 grams (3000 mg) of Tylenol per day. This includes any other sources of acetaminophen you may take on a regular basis. - Regular strength (200 mg/tab) Advil (ibuprofen) 1-2 tabs every 4-6 hours as needed. Do not exceed a dose of 3200 mg per day. If this is an acute injury, ice can be applied to the area of pain for the first 3 days to help decrease pain and inflammation. After the first 3 days, a heating pad can be used over the area for continued soothing relief. You should schedule a follow-up appointment in 2-3 days with your Primary Care Provider for further evaluation and treatment of your back pain. Return to the Emergency Department if your current symptoms worsen despite treatment course outlined above, or if you develop any of the following symptoms : intractable pain despite aforementioned treatment course, loss of control of your bowel or bladder, numbness or tingling in your groin, or development of a fever. Please return to the emergency department with any new/concerning symptoms. Problem Qualifiers
[2017-03-19 11:40] VITALS: BP 158/92; PULSE 67; O2SAT 95
== END 2017-03-19 12:02 | disposition home or self-care (01) ==
LOC: C.EDB 09:43
DX: S39.012A Strain of muscle, fascia and tendon of lower back, initial encounter (principal); M62.830 Muscle spasm of back; X58.XXXA Exposure to other specified factors, initial encounter; F41.9 Anxiety disorder, unspecified; F32.9 Major depressive disorder, single episode, unspecified; E87.6 Hypokalemia; G43.909 Migraine, unspecified, not intractable, without status migrainosus; Z87.442 Personal history of urinary calculi; Z80.9 Family history of malignant neoplasm, unspecified; Z83.79 Family history of other diseases of the digestive system; Z82.49 Family history of ischemic heart disease and other diseases of the circulatory system; F17.210 Nicotine dependence, cigarettes, uncomplicated; Z79.899 Other long term (current) drug therapy

== ENCOUNTER → 2017-04-02 | Outpatient (CLI) | payer OTHER ==
[~2017-04-02] MED LIST changes: +LOSA1TAB PO
[2017-04-02 11:19] LABS: ALT/SGPT 16 U/L (12-78); AST/SGOT 7 U/L (15-37); BLOOD UREA NITROGEN 14 mg/dl (7-18); BUN/CREATININE RATIO 18.2 (10-20); CALCIUM 8.6 mg/dl (8.5-10.1); CARBON DIOXIDE 26 mmol/L (21-32); CHLORIDE 110 mmol/L (98-107); CREATININE 0.75 mg/dl (0.60-1.20); GLUCOSE 78 mg/dl (70-99); SODIUM 141 mmol/L (136-145)
[2017-04-02 11:23] LABS: ALKALINE PHOSPHATASE 68 U/L (45-117); CHOLESTEROL 161 mg/dl (0-200); CHOLESTEROL/HDL RATIO 3.2; HDL CHOLESTEROL 51 mg/dl; LDL CHOLESTEROL CALCULATED 91 mg/dl; TRIGLYCERIDES 96 mg/dl (0-150); VERY LOW DENSITY LIPOPROT CALC 19 mg/dl
[2017-04-02 11:48] LABS: RATIO 25.9 mcg/mg (0-30.0)
== END | disposition home or self-care (01) ==
LOC: C.LABBC 08:50
PROVIDERS: ATTEND Nurse Practitioner Family
DX: Z13.220 Encounter for screening for lipoid disorders (principal)

== ENCOUNTER 2017-05-07 07:45 | Emergency (ER) | payer OTHER ==
[~2017-05-07] VITALS: Ht 165.1 cm; Wt 104.9 kg
[~2017-05-07 07:45] MED LIST changes: -LOSA1TAB PO
[2017-05-07 07:53] VITALS: TEMP 36.4; Ht 165.1 cm; Wt 104.9 kg
[2017-05-07] MEDS ORDERED: METOCLOPRAMIDE HCL INJ 5 MG/ML 2 ML VIAL IV STA (08:05)
[2017-05-07] MEDS ORDERED: DiphenhydrAMINE HCL 50 MG/ML VIAL IV STA (08:05)
[2017-05-07] MEDS ORDERED: KETOROLAC TROMETHAMINE 30 MG/ML VIAL IV STA (08:05)
[2017-05-07] MEDS ORDERED: SODIUM CHLORIDE 0.9% 1000ML 1,000 ML IV STA ×2 (08:05→08:08)
--- NOTE | 2017-05-07 08:05 | EMERGENCY ROOM VISIT NOTE ---
History Report prepared by Rosie: Louise Loera Under the Supervision of: Dr. Abner Jackson M.D. First contact with patient: 07:56 Chief Complaint: HEADACHE Stated Complaint: SEVERE MIGRAINE History of Present Illness The patient is a 37 year old female who presents to the Emergency Room with complaints of a persistent migraine headache that began several days ago but worsened today. She currently rates her discomfort as a 9/10 in severity. The patient describes her pain as a pressure. She reports a history of migraines for the last 20 years, noting that this migraine today is in her top 10 worst of all time. The patient states that light worsens her discomfort. She associates nausea and vomiting with her symptoms today. The patient states that she typically takes Maxalt for her migraines, but states that she ran out of her medications last week. She states that her migraines are worse at this time of year due to weather changes. The patient denies any chance of stating that her last menstrual cycle was one week ago. She denies any fever, chills, cough, congestion, diarrhea, constipation, or urinary symptoms. Source of History: patient Onset: several days ago Position: head Symptom Intensity: 9/10 Quality: pressure Timing: worsening, other (persistent) Modifying Factors (Worsening): other (light) Associated Symptoms: + nausea, + vomiting, No fevers, No chills, No cough, No diarrhea, No urinary symptoms Review of Systems See HPI for pertinent positives and negatives. A total of ten systems were reviewed and were otherwise negative. Past Medical & Surgical Medical Problems: (1) Alcohol intoxication (2) Alcohol intoxication (3) Anxiety (4) Cholecystectomy (5) Depressive Disorder Nec (6) Fractured nasal bones (7) Hypokalemia (8) Infected sebaceous cyst of skin (9) IVDU (intravenous drug user) (10) Migraine (11) Migraine (12) Migraine Unspecified W/O Intractable Migraine (13) Ureteral calculus, right (14) Ureteral calculus, right (15) Vasovagal syncope (16) Vasovagal syncope Family History Cancer Gallbladder disease Hypertension Social History Smoking Status: Current Every Day Smoker Alcohol Use: none Drug Use: none Marital Status: in relationship Housing Status: lives with significant other Occupation Status: employed Current/Historical Medications Scheduled Cetirizine (Zyrtec), 10 MG PO QAM Clonazepam (Clonazepam), 1 MG PO HS Lamotrigine (Lamictal), 100 MG PO BID Levonorgestrel (Iud) (Gris), 13 MG INT UTER [id number] Losartan Potassium (Cozaar), 25 MG PO DAILY Venlafaxine Hcl (Effexor Extended Rel), 150 MG PO DAILY Scheduled PRN Acetamin/Butalbital/Caffeine (Fioricet), 1 TAB PO UD PRN for Migraine Ibuprofen Tab (Advil), 800 MG PO Q8 PRN for Headache Rizatriptan Benzoate (Rizatriptan Benzoate), 10 MG PO UD PRN for Migraine Allergies Coded Allergies: Sumatriptan (Verified Allergy, Intermediate, RED RASH, 05/07/17) Physical Exam Vital Signs Date Time Temp Pulse Resp B/P (MAP) Pulse Ox O2 Delivery O2 Flow Rate FiO2 05/07/17 11:06 61 16 156/92 98 05/07/17 09:31 66 16 133/95 97 Room Air 05/07/17 08:02 71 16 146/99 96 Room Air 05/07/17 07:53 36.4 70 18 146/102 97 Room Air Physical Exam GENERAL: Awake, alert, mildly uncomfortable appearing, in no distress HENT: Normocephalic, atraumatic. Dry mucous membranes. EYES: Normal conjunctiva. Sclera non-icteric. NECK: Supple. No nuchal rigidity. FROM. No JVD. RESPIRATORY: Clear to auscultation. CARDIAC: Regular rate, normal rhythm. Extremities warm and well perfused. Pulses equal. ABDOMEN: Soft, non-distended. No tenderness to palpation. No rebound or guarding. No masses. RECTAL: Deferred. MUSCULOSKELETAL: Chest examination reveals no tenderness. The back is symmetrical on inspection without obvious abnormality. There is no CVA tenderness to palpation. No joint edema. LOWER EXTREMITIES: Calves are equal size bilaterally and non-tender. No edema. No discoloration. NEURO: Normal sensorium. No sensory or motor deficits noted. SKIN: No rash or jaundice noted. Medical Decision & Procedures Laboratory Results Test 05/07/17 08:33 Human Chorionic Gonadotropin, Qual NEG (NEG) Laboratory results reviewed by me Medications Administered Medications (Trade) Dose Ordered Sig/Ron Route Start Time Stop Time Status Last Admin Dose Admin Sodium Chloride 1,000 ml @ 999 mls/hr Q1H1M STAT IV 05/07/17 08:05 05/07/17 09:05 DC 05/07/17 08:30 999 MLS/HR Metoclopramide HCl (Reglan Inj) 10 mg NOW STAT IV 05/07/17 08:05 05/07/17 08:08 DC 05/07/17 08:29 10 MG Diphenhydramine HCl (Benadryl Inj) 25 mg NOW STAT IV 05/07/17 08:05 05/07/17 08:08 DC 05/07/17 08:28 25 MG Ketorolac Tromethamine (Toradol Inj) 30 mg NOW STAT IV 05/07/17 08:05 05/07/17 08:08 DC 05/07/17 08:29 30 MG Sodium Chloride 1,000 ml @ 999 mls/hr Q1H1M STAT IV 05/07/17 08:08 05/07/17 09:08 DC 05/07/17 09:30 999 MLS/HR ED Course 0759: The patient was evaluated in room B7. A complete history and physical exam was performed. 0805: Ordered Toradol Inj 30 mg IV, Benadryl Inj 25 mg IV, Reglan Inj 10 mg IV, Sodium Chloride 1000 ml @ 999 mls/hr IV, Sodium Chloride 1000 ml @ 999 mls/hr IV. 1040: I reevaluated the patient and she is feeling much better. I discussed the exam findings with her and I discussed the treatment plan. She verbalized complete understanding and agreement. She is ready to go home. Medical Decision I reviewed the patient's past medical history, medications, and the nursing notes as described above. Differential diagnosis includes: Migraine, tension headache, gastritis, dehydration, electrolyte abnormality, intracranial hemorrhage, meningitis The patient is a 37-year-old woman with a past medical history migraines presents to the emergency department with progressively worsening migraine for the past several days per history of present illness. Arrival the patient appears uncomfortable but no acute distress. She is afebrile with stable vital signs. Neurologically intact, neck supple, no signs of meningismus. Feels like this is like her typical migraine but among the most uncomfortable. Denies possibility of with last cycle one week ago. We'll treat symptomatically and reassess. Hcg negative. Symptoms resolved after migraine cocktail. Findings and plan for follow-up d/w patient. Patient agreeable and d/c'd per discharge instructions. Medication Reconcilliation Current Medication List: was personally reviewed by me Blood Pressure Screening Patient's blood pressure: Elevated blood pressure Blood pressure disposition: Elevated BP felt to be situational, Did not require urgent referral Impression Primary Impression: Migraine Scribe Attestation The scribe's documentation has been prepared under my direction and personally reviewed by me in its entirety. I confirm that the note above accurately reflects all work, treatment, procedures, and medical decision making performed by me. Departure Information Dispostion Home / Self-Care Referrals Delano Roberts III, CRNP (PCP) Forms HOME CARE DOCUMENTATION FORM, IMPORTANT VISIT INFORMATION Patient Instructions ED Headache Migraine, My [facility] Additional Instructions Please follow up with your primary care physician in the next 1-3 days for re- evaluation. You were treated for your migraine and felt improvement. Otherwise, your exam did not show signs of an emergent condition at this time. Drink plenty of fluids to ensure hydration. Take your medications as prescribed. Return to the emergency department for worsening symptoms as described in the accompanying instructions.
[2017-05-07] MEDS ORDERED: LOSA1TAB PO (08:59)
[2017-05-07 09:09] LABS: PREG INTERNAL NEGATIVE QC NEG CLEAR BACKGROUND; PREG INTERNAL POSITIVE QC POS CONTROL LINE
[2017-05-07 11:06] VITALS: BP 156/92; PULSE 61; O2SAT 98
== END 2017-05-07 10:54 | disposition home or self-care (01) ==
LOC: C.EDB 07:46
DX: G43.909 Migraine, unspecified, not intractable, without status migrainosus (principal); F41.9 Anxiety disorder, unspecified; Z90.49 Acquired absence of other specified parts of digestive tract; F32.9 Major depressive disorder, single episode, unspecified; Z80.9 Family history of malignant neoplasm, unspecified; Z82.49 Family history of ischemic heart disease and other diseases of the circulatory system; F17.210 Nicotine dependence, cigarettes, uncomplicated; Z79.899 Other long term (current) drug therapy

== ENCOUNTER 2017-09-07 19:23 | Emergency (ER) | payer OTHER ==
[~2017-09-07] VITALS: Ht 165.1 cm; Wt 105.6 kg
[~2017-09-07 19:23] MED LIST changes: +LOSA1TAB PO; -LOSA25TA18 PO; -MXL10 PO; +RIZA10TA21 PO
[2017-09-07 19:27] VITALS: TEMP 36.4; Ht 165.1 cm; Wt 105.6 kg
[2017-09-07] MEDS ORDERED: PROCHLORPERAZINE 5 MG/ML 2 ML VIAL IV STA (20:15)
[2017-09-07] MEDS ORDERED: KETOROLAC TROMETHAMINE 30 MG/ML VIAL IV STA (20:15)
[2017-09-07] MEDS ORDERED: ACETAMINOPHEN 500 MG TAB PO STA (20:15)
[2017-09-07] MEDS ORDERED: SODIUM CHLORIDE 0.9% 1000ML 1,000 ML IV STA (20:15)
[2017-09-07] MEDS ORDERED: DiphenhydrAMINE HCL 50 MG/ML VIAL IV STA (20:15)
[2017-09-07] MEDS ORDERED: PROCHLORPERAZINE 5 MG/ML 2 ML VIAL IM STA (20:56)
[2017-09-07] MEDS ORDERED: KETOROLAC TROMETHAMINE 60 MG/2 ML VIAL IM STA (20:56)
[2017-09-07] MEDS ORDERED: DiphenhydrAMINE HCL 50 MG/ML VIAL IM STA (20:56)
[2017-09-07] MEDS ORDERED: AMLO5TAB2 PO (22:05)
--- NOTE | 2017-09-07 22:06 | EMERGENCY ROOM VISIT NOTE ---
History Report prepared by Rosie: Malika Dillon Under the Supervision of: Dr. Ghulam Paniagua M.D. First contact with patient: 19:42 Chief Complaint: HEADACHE Stated Complaint: MIGRAINE,VOMITING,BLURRY VISTION History of Present Illness The patient is a 37 year old white female with a past medical history of migraines, depression who presents to the ED with a cc of persistent headache beginning this morning. The headache is located on the right side and does not move. She describes the pain as sharp. She has tried Maxalt to no significant relief. Positive blurry vision. Negative fever. No recent fall or trauma. She does smoke. She is not on blood thinners. No recent medication changes. LNMP was 1 week ago. Source of History: patient Onset: this morning Position: head Quality: sharp Timing: other (persistent) Associated Symptoms: No fevers Note: Pt reports blurry vision. Review of Systems See HPI for pertinent positives and negatives. A total of ten systems were reviewed and were otherwise negative. Past Medical & Surgical Medical Problems: (1) Alcohol intoxication (2) Alcohol intoxication (3) Anxiety (4) Cholecystectomy (5) Depressive Disorder Nec (6) Fractured nasal bones (7) Hypokalemia (8) Infected sebaceous cyst of skin (9) IVDU (intravenous drug user) (10) Migraine (11) Migraine (12) Migraine Unspecified W/O Intractable Migraine (13) Ureteral calculus, right (14) Ureteral calculus, right (15) Vasovagal syncope (16) Vasovagal syncope Family History Cancer Gallbladder disease Hypertension Social History Smoking Status: Current Every Day Smoker Alcohol Use: none Drug Use: none Marital Status: Housing Status: lives with significant other Occupation Status: employed Current/Historical Medications Scheduled Amlodipine Besylate (Norvasc), 5 MG PO QD Cetirizine (Zyrtec), 10 MG PO QAM Clonazepam (Clonazepam), 1 MG PO HS Lamotrigine (Lamictal), 100 MG PO BID Levonorgestrel (Iud) (Gris), 13 MG INT UTER [id number] Venlafaxine Hcl (Effexor Extended Rel), 150 MG PO DAILY Scheduled PRN Acetamin/Butalbital/Caffeine (Fioricet), 1 TAB PO UD PRN for Migraine Ibuprofen Tab (Advil), 800 MG PO Q8 PRN for Headache Rizatriptan Benzoate (Rizatriptan Benzoate), 10 MG PO UD PRN for Migraine Allergies Coded Allergies: Sumatriptan (Verified Allergy, Intermediate, RED RASH, 09/07/17) Physical Exam Vital Signs Date Time Temp Pulse Resp B/P (MAP) Pulse Ox O2 Delivery O2 Flow Rate FiO2 09/07/17 22:18 75 16 180/127 97 09/07/17 21:57 75 16 180/127 97 Room Air 09/07/17 19:27 36.4 94 20 193/114 98 Room Air Physical Exam GENERAL: Awake, alert, well-appearing, NAD HENT: Normocephalic, atraumatic. EYES: Normal conjunctiva. Sclera non-icteric. No proptosis. EOMI. Gross vision intact to finger counting. NECK: Supple. No nuchal rigidity. FROM. RESPIRATORY: CTAB, no rhonchi, wheezing, crackles CARDIAC: RRR, no MRG ABDOMEN: Soft, NTND, BS+ MSK: No chest wall TTP, no LE edema NEURO: CN 2-12 intact, 5/5 upper and lower extremity strength, no dysmetria, no drift, good finger to nose, no sensory deficits. SKIN: No rash or jaundice noted. Medical Decision & Procedures Laboratory Results Test 09/07/17 20:32 Urine Color YELLOW Urine Appearance CLOUDY (CLEAR) Urine pH 5.0 (4.5-7.5) Urine Specific Bradford 1.029 (1.000-1.030) Urine Protein 1+ (NEG) Urine Glucose (UA) NEG (NEG) Urine Ketones NEG (NEG) Urine Occult Blood TRACE (NEG) Urine Nitrite NEG (NEG) Urine Bilirubin NEG (NEG) Urine Urobilinogen NEG (NEG) Urine Leukocyte Esterase NEG (NEG) Urine WBC (Auto) 5-10 /hpf (0-5) Urine RBC (Auto) 0-4 /hpf (0-4) Urine Hyaline Casts (Auto) 10-30 /lpf (0-5) Urine Epithelial Cells (Auto) >30 /lpf (0-5) Urine Bacteria (Auto) NEG (NEG) Urine Crystals CALCIUM OXALATE (NONE Urine Test NEG (NEG) Laboratory results reviewed by me Medications Administered Medications (Trade) Dose Ordered Sig/Ron Route Start Time Stop Time Status Last Admin Dose Admin Acetaminophen (Tylenol Tab) 1,000 mg NOW STAT PO 09/07/17 20:15 09/07/17 20:18 DC 09/07/17 20:30 1,000 MG Prochlorperazine Edisylate (Compazine Inj) 10 mg NOW STAT IM 09/07/17 20:56 09/07/17 20:57 DC 09/07/17 21:04 10 MG Ketorolac Tromethamine (Toradol Inj) 60 mg NOW STAT IM 09/07/17 20:56 09/07/17 20:57 DC 09/07/17 21:04 60 MG Diphenhydramine HCl (Benadryl Inj) 50 mg NOW STAT IM 09/07/17 20:56 09/07/17 20:57 DC 09/07/17 21:04 50 MG ED Course 1955: The patient was evaluated in room A4B. A complete history and physical exam was performed. 2110: I reevaluated the patient. 2147: I reevaluated the patient. Discussed results and discharge instructions: She verbalized understanding and agreement. The patient is ready for discharge. Medical Decision The patient is a 37 year old white female with a past medical history of migraines, depression who presents to the ED with a cc of persistent headache beginning this morning. Differential diagnosis: Etiologies such as migraine headache, meningitis, sinusitis, CO exposure, ICH, SAH, infection, tumor, headache, sinus thrombosis, arterial dissection, as well as others were entertained. Patient was seen and evaluated the bedside. Patient does have history of migraines. Patient states she woke up with this pains morning. Patient denies any blood thinning medications. LMP further this month. Patient does not take any blood thinning medications. Patient has no prior history of DVT or PE. Patient has a nonfocal and normal neurologic exam. patient did complain of some mild blurry vision but has no visual field deficits and her gross vision is intact. eyes are eomi and no proptosis. patient did have a urinalysis and upt. patient's urinalysis did show some calcium oxalate stones trace blood. patient denies any flank pain. patient was feeling improved upon reassessment the patient was fairly sleeping. patient did have mildly elevated blood pressure. patient was started on low-dose amlodipine. patient was also told she needs to consider smoking cessation as well as ade exercise to help improve her blood pressure. patient told to follow-up with her pcp. patient was agreeable to this plan of care.Patient was given strict follow-up, discharge , and return precautions. All questions were answered. Patient was deemed suitable for outpatient follow-up at this time. Patient agreed with the plan of care and was safely discharged home. The chart was completed utilizing [employer] Speech voice recognition software. Grammatical errors, random word insertions, pronoun errors, and incomplete sentences are an occasional consequence of this system due to software limitations, ambient noise, and hardware issues. Any formal questions or concerns about the content, text, or information contained within the body of this dictation should be directly addressed to the physician for clarification. Medication Reconcilliation Current Medication List: was personally reviewed by me Blood Pressure Screening Patient's blood pressure: Elevated blood pressure Blood pressure disposition: Referred to PCP Impression Primary Impression: Migraine Additional Impressions: Hypertension Encounter for smoking cessation counseling Scribe Attestation The scribe's documentation has been prepared under my direction and personally reviewed by me in its entirety. I confirm that the note above accurately reflects all work, treatment, procedures, and medical decision making performed by me. Departure Information Dispostion Home / Self-Care Prescriptions Amlodipine Besylate (NORVASC) 5 Mg Tab 5 MG PO QD for 30 Days, #30 TAB Prov: Ghulam Paniagua M.D. 09/07/17 Referrals Delano Roberts III, CRNP (PCP) Patient Instructions ED Headache Migraine, ED Smoking Cessation, Hypertension [place], [facility] Additional Instructions Please return to the emergency department if you have worsening or recurrent symptoms not amenable to at-home treatment. Please call for a follow-up appointment with her primary care physician. Please take your medications as prescribed. If you have other concerns and/or complaints please feel free to also call your primary care physician's office or return the ED for further evaluation, management, and treatment. Please consider smoking cessation. Also considered diet and exercise. All of these things will help improve her blood pressure. Please follow-up with your primary care physician to discuss her headaches as well as her blood pressure medication. You may take 600 mg Ibuprofen every 6 hours as needed for pain with food for no more than 2 consecutive days. You may take tylenol 1000 mg every 6 hours as needed for pain. You may take motrin and tylenol separately or at the same time. Take your medications as prescribed. You have been examined and treated today on an emergency basis only. This is not a substitute for, or an effort to provide, complete comprehensive medical care. It is impossible to recognize and treat all injuries or illnesses in a single emergency department visit. It is therefore important that you follow up closely with [facility], your PCP, and/or your specialist(s). Call as soon as possible for an appointment. Thank you for your time and consideration. I look forward to speaking with you again soon. Please don't hesitate to call us if you have any questions. Problem Qualifiers Primary Impression: Migraine Migraine type: without aura Status migrainosus presence: without status migrainosus Intractability: not intractable Qualified Codes: G43.009 - Migraine without aura, not intractable, without status migrainosus Additional Impressions: Hypertension Hypertension type: unspecified Qualified Codes: I10 - Essential (primary) hypertension
[2017-09-07 22:18] VITALS: BP 180/127; PULSE 75; O2SAT 97
== END 2017-09-07 22:19 | disposition home or self-care (01) ==
LOC: C.EDB 19:24 → C.EDA 22:19
DX: G43.009 Migraine without aura, not intractable, without status migrainosus (principal); I10 Essential (primary) hypertension; Z71.6 Tobacco abuse counseling; F41.9 Anxiety disorder, unspecified; F32.9 Major depressive disorder, single episode, unspecified; E87.6 Hypokalemia; F19.10 Other psychoactive substance abuse, uncomplicated; Z87.442 Personal history of urinary calculi; Z80.9 Family history of malignant neoplasm, unspecified; Z83.79 Family history of other diseases of the digestive system; Z82.49 Family history of ischemic heart disease and other diseases of the circulatory system; F17.210 Nicotine dependence, cigarettes, uncomplicated; Z79.899 Other long term (current) drug therapy

== ENCOUNTER 2017-11-07 09:17 | Emergency (ER) | payer OTHER ==
[~2017-11-07] VITALS: Ht 165.1 cm; Wt 107.9 kg
[~2017-11-07 09:17] MED LIST changes: -LOSA1TAB PO
[2017-11-07 09:28] VITALS: TEMP 37; Ht 165.1 cm; Wt 107.9 kg
[2017-11-07] MEDS ORDERED: PRED10TA PO (09:40)
[2017-11-07] MEDS ORDERED: DiphenhydrAMINE HCL 50 MG/ML VIAL IV STA (09:48)
[2017-11-07] MEDS ORDERED: METHYLPREDNISOLONE 125 MG VIAL IV STA (09:48)
[2017-11-07] MEDS ORDERED: SODIUM CHLORIDE 0.9% 1000ML 1,000 ML IV STA (09:48)
--- NOTE | 2017-11-07 09:52 | EMERGENCY ROOM VISIT NOTE ---
History Report prepared by Rosie: Rachael Valdez Under the Supervision of: Dr. Elbert Vallejo M.D. First contact with patient: 09:43 Chief Complaint: RASH Stated Complaint: RASH ALL OVER BODY, ITCHY History of Present Illness The patient is a 37 year old female who presents to the Emergency Room with complaints of a worsening rash beginning two days ago. 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 While at work two days ago, she was moving chemicals and developed a rash. The patient went to [facility] yesterday and was put on prednisone and Zantac yesterday. She took Zantac and 60 mg of prednisone this morning. She also took Benadryl last night. The patient reports itchiness to the rash. The patient is a former smoker. Source of History: patient Onset: two days ago Position: other (generalized) Quality: other (rash) Timing: worsening Associated Symptoms: + rash Review of Systems See HPI for pertinent positives & negatives. A total of 10 systems reviewed and were otherwise negative. Past Medical & Surgical Medical Problems: (1) Alcohol intoxication (2) Alcohol intoxication (3) Anxiety (4) Cholecystectomy (5) Depressive Disorder Nec (6) Fractured nasal bones (7) Hypokalemia (8) Infected sebaceous cyst of skin (9) IVDU (intravenous drug user) (10) Migraine (11) Migraine (12) Migraine Unspecified W/O Intractable Migraine (13) Ureteral calculus, right (14) Ureteral calculus, right (15) Vasovagal syncope (16) Vasovagal syncope Family History Cancer Gallbladder disease Hypertension Social History Smoking Status: Former Smoker Alcohol Use: none Drug Use: none Marital Status: Housing Status: lives with significant other Occupation Status: employed Current/Historical Medications Scheduled Cetirizine (Zyrtec), 10 MG PO QAM Clonazepam (Clonazepam), 1 MG PO HS Lamotrigine (Lamictal), 100 MG PO BID Levonorgestrel (Iud) (Gris), 13 MG INT UTER [id number] Prednisone (Prednisone), 0 PO UD Venlafaxine Hcl (Effexor Extended Rel), 150 MG PO DAILY Scheduled PRN Ibuprofen Tab (Advil), 800 MG PO Q8 PRN for Headache Rizatriptan Benzoate (Rizatriptan Benzoate), 10 MG PO UD PRN for Migraine Allergies Coded Allergies: Sumatriptan (Verified Allergy, Intermediate, RED RASH, 11/07/17) Physical Exam Vital Signs Date Time Temp Pulse Resp B/P (MAP) Pulse Ox O2 Delivery O2 Flow Rate FiO2 11/07/17 11:50 81 16 151/101 94 11/07/17 10:35 90 20 99 Room Air 11/07/17 09:28 37.0 92 18 159/94 95 Room Air Physical Exam GENERAL: Awake, alert, well-appearing, in no acute distress HENT: Normocephalic, atraumatic. Oropharynx unremarkable. EYES: Normal conjunctiva. Sclera non-icteric. NECK: Supple. No nuchal rigidity. FROM. No JVD. RESPIRATORY: Clear to auscultation. CARDIAC: Regular rate, normal rhythm. Extremities warm and well perfused. Pulses equal. ABDOMEN: Soft, non-distended. No tenderness to palpation. No rebound or guarding. No masses. RECTAL: Deferred. MUSCULOSKELETAL: Chest examination reveals no tenderness. The back is symmetrical on inspection without obvious abnormality. There is no CVA tenderness to palpation. No joint edema. LOWER EXTREMITIES: Calves are equal size bilaterally and non-tender. No edema. No discoloration. NEURO: Normal sensorium. No sensory or motor deficits noted. SKIN: Urticarial rash in the antecubital area, neck and chest. Medical Decision & Procedures Medications Administered Medications (Trade) Dose Ordered Sig/Ron Route Start Time Stop Time Status Last Admin Dose Admin Sodium Chloride 1,000 ml @ 999 mls/hr Q1H1M STAT IV 11/07/17 09:48 11/07/17 10:48 DC 11/07/17 10:04 999 MLS/HR Diphenhydramine HCl (Benadryl Inj) 50 mg NOW STAT IV 11/07/17 09:48 11/07/17 09:50 DC 11/07/17 10:04 50 MG Methylprednisolone Sodium Succinate (Solu-Medrol IV) 60 mg NOW STAT IV 11/07/17 09:48 11/07/17 09:50 DC 11/07/17 10:04 60 MG Racepinephrine (Raccemic Epinephrine 2.25% 0.5ML Neb) 0.5 ml NOW STAT INH 11/07/17 10:01 11/07/17 10:02 DC 11/07/17 10:11 0.5 ML ED Course 0945: Past medical records reviewed. The patient was evaluated in room B9. A complete history and physical examination was performed. 0948: Ordered Solu-Medrol IV 60 mg IV, Benadryl Inj 50 mg IV, Sodium Chloride 1000 ml @ 999 mls/hr. 1001: Ordered Racepinephrine 0.5 ml INH. 1137: The patient is feeling better. 1149: Upon reexamination the patient is resting comfortably. I discussed results and treatment plan with the patient. She verbalizes agreement and understanding. The patient is ready for discharge. Medical Decision Differential diagnosis: Etiologies such as allergic reaction, anaphylaxis, urticaria, Fan-Rolan syndrome, toxic epidermal necrolysis, erythema multiforme, cellulitis, as well as others were entertained. This is a 37-year-old female who presents the emergency department complaining of rash on her body. The patient has been on prednisone as well as Zantac however has not taken Benadryl today. In the emergency department the patient received an IV and received a dose of Solu-Medrol as well as Benadryl. Repeat examination revealed improvement in the patient's symptoms. I do feel that the patient is well enough to be discharged home for follow-up with her primary care physician. Patient was encouraged to continue her prednisone Zantac and take Benadryl every 6 hours. Patient was in agreement with the treatment plan. Medication Reconcilliation Current Medication List: was personally reviewed by me Blood Pressure Screening Patient's blood pressure: Elevated blood pressure Blood pressure disposition: Referred to PCP Impression Primary Impression: Allergic reaction Scribe Attestation The scribe's documentation has been prepared under my direction and personally reviewed by me in its entirety. I confirm that the note above accurately reflects all work, treatment, procedures, and medical decision making performed by me. Departure Information Dispostion Home / Self-Care Referrals Delano Roberst III, CRNP (PCP) Forms HOME CARE DOCUMENTATION FORM, IMPORTANT VISIT INFORMATION, WORK / SCHOOL INSTRUCTIONS Patient Instructions ED Allergic Reaction General Other, My [facility] Additional Instructions Continue taking 50 mg Benadryl every 6 hours Increase fluids next 48 hours You have been examined and treated today on an emergency basis only. This is not a substitute for, or an effort to provide, complete comprehensive medical care. It is impossible to recognize and treat all injuries or illnesses in a single emergency department visit. It is therefore important that you follow up closely with DR Roberts. Call as soon as possible for an appointment. Thank you for your time and consideration. I look forward to speaking with you again soon. Please don't hesitate to call us if you have any questions. Problem Qualifiers Primary Impression: Allergic reaction Encounter type: initial encounter Qualified Codes: T78.40XA - Allergy, unspecified, initial encounter
[2017-11-07] MEDS ORDERED: RACEPINEPHRINE 2.25% NEBU SOLN 0.5 ML VIAL INH STA (10:01)
[2017-11-07 11:50] VITALS: BP 151/101; PULSE 81; O2SAT 94
== END 2017-11-07 11:51 | disposition home or self-care (01) ==
LOC: C.EDB 09:19
DX: T78.40XA Allergy, unspecified, initial encounter (principal); X58.XXXA Exposure to other specified factors, initial encounter; R03.0 Elevated blood-pressure reading, without diagnosis of hypertension; Z77.098 Contact with and (suspected) exposure to other hazardous, chiefly nonmedicinal, chemicals; F41.8 Other specified anxiety disorders; Z87.891 Personal history of nicotine dependence; Z97.5 Presence of (intrauterine) contraceptive device; Z88.8 Allergy status to other drugs, medicaments and biological substances

== ENCOUNTER 2017-11-09 10:03 | Emergency (ER) | payer OTHER ==
[~2017-11-09] VITALS: Ht 165.1 cm; Wt 107.3 kg
[~2017-11-09 10:03] MED LIST changes: +PRED10TA PO
[2017-11-09 10:05] VITALS: TEMP 36.3; Ht 165.1 cm; Wt 107.3 kg
[2017-11-09] MEDS ORDERED: CHN/1 PO (10:15)
[2017-11-09] MEDS ORDERED: SODIUM CHLORIDE 0.9% 1000ML 1,000 ML IV STA (10:39)
[2017-11-09] MEDS ORDERED: DEXAMETHASONE INJ 10 MG in SYRINGE 0 ML IV STA (10:39)
[2017-11-09 10:59] LABS: BASO % 0.4 %; BASO ABS # 0.05 K/uL (0-0.2); EOS % 0.5 %; EOS ABS # 0.06 K/uL (0-0.5); HEMATOCRIT 45.2 % (37-47); HEMOGLOBIN 15.7 g/dL (12.0-16.0); IG# 0.11 K/uL (0.00-0.02); LYMPH % 7.5 %; LYMPH ABS # 0.84 K/uL (1.2-3.4); MEAN CELL VOLUME 88.8 fL (80-100); MEAN CORPUSCULAR HEMOGLOBIN 30.8 pg (25-34); MEAN CORPUSCULAR HGB CONC 34.7 g/dl (32-36); MEAN PLATELET VOLUME 9.7 fL (7.4-10.4); MONO ABS # 0.34 K/uL (0.11-0.59); NEUT % 87.6 %; NEUT ABS # 9.75 K/uL (1.4-6.5); PLATELET COUNT 224 K/uL (130-400); RED CELL DISTRIBUTION WIDTH CV 13.3 % (11.5-14.5); RED CELL DISTRIBUTION WIDTH SD 43.3 fL (36.4-46.3); WHITE BLOOD COUNT 11.15 K/uL (4.8-10.8)
[2017-11-09 11:16] LABS: ALBUMIN 3.7 gm/dl (3.4-5.0); CALCIUM 9.2 mg/dl (8.5-10.1); CREATININE 0.87 mg/dl (0.60-1.20); POTASSIUM 3.3 mmol/L (3.5-5.1)
[2017-11-09 11:19] LABS: TOTAL PROTEIN 8.1 gm/dl (6.4-8.2)
[2017-11-09 12:41] LABS: MONOSPOT NEG (NEG)
--- NOTE | 2017-11-09 12:49 | EMERGENCY ROOM VISIT NOTE ---
History First contact with patient: 10:28 Chief Complaint: RASH Stated Complaint: RASH ALL OVER BODY/FOOT PAIN History of Present Illness The patient is a 37 year old female who presents to the Emergency Room via private vehicle with complaints of rash all over body/foot pain". The patient states that she was seen here with allergic reaction/rash 5 days ago. The rash has not spread, it is itchy and her feet are tingly/numb. She states that she was given prednisone, and told to take Benadryl. She has been taking these as prescribed but notes that it is worsening. She states that this all began shortly after using chemicals while at work. She was urinating petroleum-based salt. She notes that it just came out of this and is concerned maybe she got into contact with this. She denies any trouble breathing. She does note some sinus congestion. She notes it all began on her right shoulder which is where it is worse now. She denies any chest pain, shortness of breath. Review of Systems A complete 6-point Review of Systems was discussed with the patient, with pertinent positives and negatives listed in the History of Present Illness. All remaining Review of Systems questions can be considered negative unless otherwise specified. Past Medical/Surgical History Medical Problems: (1) Alcohol intoxication (2) Alcohol intoxication (3) Anxiety (4) Cholecystectomy (5) Depressive Disorder Nec (6) Fractured nasal bones (7) Hypokalemia (8) Infected sebaceous cyst of skin (9) IVDU (intravenous drug user) (10) Migraine (11) Migraine (12) Migraine Unspecified W/O Intractable Migraine (13) Ureteral calculus, right (14) Ureteral calculus, right (15) Vasovagal syncope (16) Vasovagal syncope Family History Cancer Gallbladder disease Hypertension Social History Smoking Status: Never Smoker Alcohol Use: none Drug Use: none Marital Status: Housing Status: lives with significant other Occupation Status: employed Current/Historical Medications Scheduled Cetirizine (Zyrtec), 10 MG PO QAM Clonazepam (Clonazepam), 1 MG PO HS Lamotrigine (Lamictal), 100 MG PO BID Levonorgestrel (Iud) (Gris), 13 MG INT UTER [id number] Prednisone (Prednisone), 0 PO UD Varenicline (Chantix), 1 TAB PO BID Venlafaxine Hcl (Effexor Extended Rel), 150 MG PO DAILY Scheduled PRN Ibuprofen Tab (Advil), 800 MG PO Q8 PRN for Headache Rizatriptan Benzoate (Rizatriptan Benzoate), 10 MG PO UD PRN for Migraine Physical Exam Vital Signs Date Time Temp Pulse Resp B/P (MAP) Pulse Ox O2 Delivery O2 Flow Rate FiO2 11/09/17 13:49 75 18 157/95 97 Room Air 11/09/17 11:40 78 148/111 96 Room Air 11/09/17 10:05 36.3 87 18 162/113 97 Room Air Physical Exam VITAL SIGNS - Vital signs and nursing notes were reviewed. Stable. Hypertensive. GENERAL -37-year-old female appearing her stated age who is in no acute distress. Communicates well with provider and answers questions appropriately. SKIN -there is a diffuse urticarial like rash overlying the patient's entire body. These are subcentimeter close together. HEAD - NC/AT. EYES - PERRL with EOMI bilaterally. Sclera anicteric. EARS - No deformities of external structures noted on gross examination bilaterally. NOSE - Midline and without cyanosis. No epistaxis or purulent drainage noted. MOUTH/OROPHARYNX - Without perioral cyanosis. NECK - Neck with FROM. Supple to palpation. No nuchal rigidity. LUNGS - Chest wall symmetric without accessory muscle use, intercostals retractions, or central cyanosis. Normal vesicular breath sounds CTA B/L. No wheezes, rales, or rhonchi appreciated. CARDIAC - RRR with S1/S2. No murmur, rubs, or gallops appreciated. EXTREMITIES - No clubbing or peripheral cyanosis. NEUROLOGIC - Cranial nerves II through XII grossly intact. Sensory intact to light touch throughout. PSYCH - A&O, and cooperates fully with examiner. Pt is very pleasant and interacts well with examiner. Medical Decision & Procedures Laboratory Results 11/09/17 10:50 Red Blood Count 5.09, Mean Corpuscular Volume 88.8, Mean Corpuscular Hemoglobin 30.8, Mean Corpuscular Hemoglobin Concent 34.7, Mean Platelet Volume 9.7, Neutrophils (%) (Auto) 87.6, Lymphocytes (%) (Auto) 7.5, Monocytes (%) (Auto) 3.0, Eosinophils (%) (Auto) 0.5, Basophils (%) (Auto) 0.4, Neutrophils # (Auto) 9.75, Lymphocytes # (Auto) 0.84, Monocytes # (Auto) 0.34, Eosinophils # (Auto) 0.06, Basophils # (Auto) 0.05 11/09/17 10:50 Test 11/09/17 10:50 11/09/17 11:00 White Blood Count 11.15 K/uL (4.8-10.8) Red Blood Count 5.09 M/uL (4.2-5.4) Hemoglobin 15.7 g/dL (12.0-16.0) Hematocrit 45.2 % (37-47) Mean Corpuscular Volume 88.8 fL (80-100) Mean Corpuscular Hemoglobin 30.8 pg (25-34) Mean Corpuscular Hemoglobin Concent 34.7 g/dl (32-36) Platelet Count 224 K/uL (130-400) Mean Platelet Volume 9.7 fL (7.4-10.4) Neutrophils (%) (Auto) 87.6 % Lymphocytes (%) (Auto) 7.5 % Monocytes (%) (Auto) 3.0 % Eosinophils (%) (Auto) 0.5 % Basophils (%) (Auto) 0.4 % Neutrophils # (Auto) 9.75 K/uL (1.4-6.5) Lymphocytes # (Auto) 0.84 K/uL (1.2-3.4) Monocytes # (Auto) 0.34 K/uL (0.11-0.59) Eosinophils # (Auto) 0.06 K/uL (0-0.5) Basophils # (Auto) 0.05 K/uL (0-0.2) RDW Standard Deviation 43.3 fL (36.4-46.3) RDW Coefficient of Variation 13.3 % (11.5-14.5) Immature Granulocyte % (Auto) 1.0 % Immature Granulocyte # (Auto) 0.11 K/uL (0.00-0.02) Erythrocyte Sedimentation Rate 18 mm/hr (0-21) Anion Gap 7.0 mmol/L (3-11) Est Creatinine Clear Calc Drug Dose 105.7 ml/min Estimated GFR () 97.3 Estimated GFR (Non- 83.9 BUN/Creatinine Ratio 14.6 (10-20) Calcium Level 9.2 mg/dl (8.5-10.1) Magnesium Level 2.2 mg/dl (1.8-2.4) Total Bilirubin 0.2 mg/dl (0.2-1) Aspartate Amino Transf (AST/SGOT) 8 U/L (15-37) Alanine Aminotransferase (ALT/SGPT) 21 U/L (12-78) Alkaline Phosphatase 90 U/L (45-117) C-Reactive Protein 0.37 mg/dl (0-0.29) Total Protein 8.1 gm/dl (6.4-8.2) Albumin 3.7 gm/dl (3.4-5.0) Globulin 4.4 gm/dl (2.5-4.0) Albumin/Globulin Ratio 0.8 (0.9-2) Lyme Disease IgG Antibody NEG (NEG) Lyme Disease IgM Antibody NEG (NEG) Monoscreen NEG (NEG) Urine Color YELLOW Urine Appearance CLOUDY (CLEAR) Urine pH 8.0 (4.5-7.5) Urine Specific [place] 1.015 (1.000-1.030) Urine Protein NEG (NEG) Urine Glucose (UA) NEG (NEG) Urine Ketones NEG (NEG) Urine Occult Blood NEG (NEG) Urine Nitrite NEG (NEG) Urine Bilirubin NEG (NEG) Urine Urobilinogen NEG (NEG) Urine Leukocyte Esterase SMALL (NEG) Urine WBC (Auto) 1-5 /hpf (0-5) Urine RBC (Auto) 0-4 /hpf (0-4) Urine Hyaline Casts (Auto) 0 /lpf (0-5) Urine Epithelial Cells (Auto) 20-30 /lpf (0-5) Urine Bacteria (Auto) NEG (NEG) Medications Administered Medications (Trade) Dose Ordered Sig/Ron Route Start Time Stop Time Status Last Admin Dose Admin Sodium Chloride 1,000 ml @ 999 mls/hr Q1H1M STAT IV 11/09/17 10:39 11/09/17 11:39 DC 11/09/17 10:59 999 MLS/HR Dexamethasone Sodium Phosphate 10 mg/Syringe 2.5 ml @ 1 mls/min NOW STAT IV 11/09/17 10:39 11/09/17 10:41 DC 11/09/17 10:59 1 MLS/MIN Medical Decision Patient was seen and evaluated as above in room B11. She presents to us today with rash over the body/foot pain". Review was had a previous visits per review was performed of nursing notes and vital signs. After obtaining a thorough history and physical examination the above work up was performed. She appears to have an urticarial like rash on exam. This likely began as contact dermatitis which has now spread. There is also perhaps a systemic component. She is nontoxic. Vital signs stable other than her blood pressure elevated which she notes she is working with the family doctor titrate her medications. No evidence of emergent process. I did elect to obtain baseline labs to identify any underlying cause. No concerning leukocytosis. I suspect 11.15 leukocytosis secondary to steroid use recently. ESR negative. No anemia. Metabolic panel reveals potassium and sodium low. She is to increase foods high in potassium. CRP high 0.37. Urine negative. Patient Lyme and mono screen were both negative. I suspect again she is likely experiencing contact dermatitis/a systemic urticarial reaction. There is no evidence of anaphylaxis. At this time I believe outpatient follow-up is appropriate. She was given Decadron here IV as well as fluids. She was reevaluated in the hives were improving. I informed her that time will have to pass to allow the medications to work, and the reaction to subside. She was educated upon worrisome symptoms which to return. She is also to watch for any potential fleas in the house indicating that she did have a new pets. It is unlikely this is flea bites secondary to its presentation. The patient was educated upon management, had questions answered prior to discharge, and was discharged home in good condition. In the evaluation and treatment of this patient the following differential diagnoses were entertained: Chondrodermatitis, allergic reaction, anaphylaxis, fleabites, among others. Impression Primary Impression: Urticaria Additional Impression: Hypokalemia Departure Information Dispostion Home / Self-Care Condition GOOD Referrals Delano Roberts III, CRNP (PCP) Patient Instructions My [facility] Additional Instructions You have been treated in the Emergency Department for an Allergic Reaction. You have been treated and monitored in the Emergency Department appropriately. Please continue the prescribed medications. As with every Emergency Department visit, you should follow-up with your primary care provider in 2-3 days for reevaluation. Return to the Emergency Department if your current symptoms worsen despite treatment course outlined above, or if you develop any of the following symptoms : wheezing, tongue or face swelling, tightness in your throat, shortness of breath, or fainting. Problem Qualifiers
[2017-11-09 13:49] VITALS: BP 157/95; PULSE 75; O2SAT 97
== END 2017-11-09 13:49 | disposition home or self-care (01) ==
LOC: C.EDB 10:05
DX: L50.9 Urticaria, unspecified (principal); E87.6 Hypokalemia; F41.9 Anxiety disorder, unspecified

== ENCOUNTER 2017-12-20 14:21 | Emergency (ER) | payer OTHER ==
[~2017-12-20] VITALS: Ht 165.1 cm; Wt 109.7 kg
[~2017-12-20 14:21] MED LIST changes: +CHN/1 PO; -FRCT/ PO
[2017-12-20 14:23] VITALS: TEMP 36.4; Ht 165.1 cm; Wt 109.7 kg
[2017-12-20] MEDS ORDERED: ONDANSETRON INJ 2 MG/ML 2 ML VIAL IV STA (14:43)
[2017-12-20] MEDS ORDERED: DiphenhydrAMINE HCL 50 MG/ML VIAL IV STA (14:43)
[2017-12-20] MEDS ORDERED: SODIUM CHLORIDE 0.9% 1000ML 1,000 ML IV ONE (14:45)
[2017-12-20] MEDS ORDERED: KETOROLAC TROMETHAMINE 30 MG/ML VIAL IV STA (15:13)
[2017-12-20 17:23] VITALS: BP 160/109; PULSE 69; O2SAT 98
--- NOTE | 2017-12-20 20:59 | EMERGENCY ROOM VISIT NOTE ---
ED Visit Note First contact with patient: 14:27 CHIEF COMPLAINT: Migraine headache. HISTORY OF PRESENT ILLNESS: Ms. Brewer is a 37 year-old white female who ambulates into the ED accompanied by her mother complaining of a migraine headache. She reports a gradual onset of a severe migraine headache that started approximately 6 hours ago. The pain is constant and it is slowly increasing in severity. This is not the worst headache of the life and is similar to previous migraines. Currently she describes the headache as a stabbing sensation/pain in the right frontal area and behind the right eye. She rates the pain a 9/10. The pain is nonradiating. She has not identified any aggravating or alleviating factors related to the pain. She reports she has been taking her prescribed Maxalt without relief of her discomfort. There is been associated light sensitivity, nausea and vomiting. She denies fever, chills, sweats, skin eruptions, skin color changes, recent head trauma, upper respiratory tract symptoms, sinus drainage, abnormal neurological symptoms, sore throat, neck pain/stiffness, shortness of breath, chest pain, abdominal pain, extremity weakness/numbness/ tingling. Additionally it was found on discharge that patient was still hypertensive. When I questioned her she reported that she stopped her antihypertensive medications 3 weeks ago because she did not like how it was making her feel and has not followed up with her PCP. REVIEW OF SYSTEMS: As noted above in History of Present Illness; all body systems were reviewed with the patient and found to be negative unless noted above otherwise. PAST MEDICAL HISTORY: As previously noted, hypertension, unspecified skin disorder, anxiety, depression, ureter calculus, syncope, nasal fracture, status post cholecystectomy. CURRENT MEDICATIONS: Medications Dose Route/Sig Max Daily Dose Days Date Category Chantix (Varenicline) 1 Mg Tab 1 Tab PO BID 30 11/09/17 Reported Gris (Levonorgestrel (Iud)) 13.5 Mg Iud 13 Mg INT UTER [id number] 03/10/16 Reported Effexor Extended Rel (Venlafaxine Hcl) 150 Mg Cap 150 Mg PO DAILY 09/24/15 Reported Lamictal (Lamotrigine) 100 Mg Tab 100 Mg PO BID 09/24/15 Reported Clonazepam 1 Mg Tab 1 Mg PO HS 07/12/14 Reported Rizatriptan Benzoate 10 Mg Tab 10 Mg PO UD PRN 07/12/14 Reported Advil (Ibuprofen) 200 Mg Tab 800 Mg PO Q8 PRN 08/04/13 Reported Zyrtec (Cetirizine HCl) 10 Mg Tab 10 Mg PO QAM 04/07/09 Reported ALLERGIES TO MEDICATIONS: Imitrex. SOCIAL HISTORY: Patient is currently employed; she feels safe in her home environment; she denies tobacco use and admits to alcohol use. PHYSICAL EXAM: Vital Signs: Date Time Temp Pulse Resp B/P (MAP) Pulse Ox O2 Delivery O2 Flow Rate FiO2 12/20/17 17:23 69 2 160/109 98 12/20/17 16:34 68 16 175/120 94 Room Air 12/20/17 14:23 36.4 77 18 162/123 98 GENERAL: 37-year-old female in mild to moderate distress due to pain, nontoxic- appearing, afebrile and hemodynamically stable. NEUROLOGICAL: Awake, alert and oriented to person, place and time. Answering questions appropriately and following commands. Normal gait. Good hand eye coordination. No focal motor sensory deficits. Cranial nerves II through XII grossly intact. Normal gait. Able to spell word but not count backwards. SKIN: Warm, dry and pink. No soft tissue eruptions or trauma noted. HEENT: Atraumatic and normocephalic. PERRLA. EOMI without nystagmus. Funduscopic examination was deferred due to light sensitivity. Sclera white and conjunctiva pink. No drainage from naris. Airway patent. Speech is normal and clear. Pharynx is nonerythematous or edematous. No lymphadenopathy. Trachea midline. No jugular venous distention. BACK: No tenderness over the bony spine. Full range of motion of the cervical spine. No nuchal rigidity or meningismus. No CVA tenderness. THORAX: Lungs sounds are clear to auscultation and equal bilaterally with symmetrical chest wall. HEART: Regular rate and rhythm. No gallops, rubs or murmurs are appreciated. ABDOMEN: Flat, soft and nontender. Positive bowel sounds in all quadrants. No guarding, rigidity or organomegaly. EXTREMITIES: Moves all extremities well on command and with purpose. All distal neurovascular statuses are intact and equal bilaterally. ED COURSE: Patient is assessed with history and physical examination. Patient's medication list was reviewed. An IV lock was initiated. Patient was hydrated with normal saline and received 30 mg of Toradol IV, 50 mg of Benadryl IV and 4 mg of Zofran IV for her symptoms. Patient was reassessed. Patient was educated about her condition and instructed on her treatment plan; she verbalized understanding and agreement with this plan. CLINICAL IMPRESSION: Migraine headache. Hypertension. DECISION MAKIN-year-old female who presents for evaluation of headache. She is afebrile, well appearing, and hemodynamically stable. She has no signs of a sinus, dental , or ear infection and no evidence of meningismus. She is neurologically intact. I do not suspect a headache to be secondary to a subarachnoid hemorrhage, meningitis, encephalitis, or intracranial mass lesion. DISPOSITION: Patient was discharged to home in stable condition accompanied by XX. On discharge patient was reassessed and reported her pain at a level of XX on a zero to 10 scale which was an improvement of a XX on admission to the department. DISCHARGE INSTRUCTIONS: Migraine headache. Rest at home, in a quiet darkened room and allow the medication to work for the pain. Continue to follow up current treatment plan prescribed by your physician for your migraine headaches. See your own doctor in follow-up this week for continued care and treatment. Return to the emergency department for worsening/uncontrolled pain, any abnormal neurological symptoms, fevers or any new/concerning symptoms. Hypertension. Patient was encouraged to contact her PCP tomorrow morning and request follow- up care and treatment and recheck of her blood pressure.
== END 2017-12-20 17:25 | disposition home or self-care (01) ==
LOC: C.EDB 14:22 → C.EDC 17:25
DX: G43.909 Migraine, unspecified, not intractable, without status migrainosus (principal); I10 Essential (primary) hypertension; Z88.8 Allergy status to other drugs, medicaments and biological substances

== ENCOUNTER 2018-03-03 06:50 | Emergency (ER) | payer OTHER ==
[~2018-03-03] VITALS: Ht 165.1 cm; Wt 114.1 kg
[~2018-03-03 06:50] MED LIST changes: -PRED10TA PO
[2018-03-03 06:56] VITALS: TEMP 36.5; Ht 165.1 cm; Wt 114.1 kg
[2018-03-03] MEDS ORDERED: KETOROLAC TROMETHAMINE 60 MG/2 ML VIAL IM STA (07:04)
--- NOTE | 2018-03-03 07:34 | DIAGNOSTIC IMAGING REPORT ---
L RIBS UNILATERAL WITH PA CHEST CLINICAL HISTORY: tl lower rib pain pain COMPARISON STUDY: No previous studies for comparison. FINDINGS: Negative ribs. Negative chest. IMPRESSION: Negative study The above report was generated using voice recognition software. It may contain grammatical, syntax or spelling errors. Electronically signed by: Sandro Segura M.D. 03/03/2018 7:32 AM Dictated Date/Time: 03/03/2018 7:31 AM
--- NOTE | 2018-03-03 07:52 | EMERGENCY ROOM VISIT NOTE ---
History First contact with patient: 06:57 Chief Complaint: RIB PAIN Stated Complaint: RIB PAIN History of Present Illness The patient is a 38 year old female who presents to the Emergency Room with complaints of left lower rib pain for over 1 week but got worse last evening. 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 She also states that she has a large dog that jumped on her. The patient states there is increased pain with movement and with deep inspiration. The patient denies any recent URI symptoms of fever, cough or chest congestion. Review of Systems 10 system review was performed and was negative unless stated otherwise history of present illness. Past Medical/Surgical History Medical Problems: (1) Alcohol intoxication (2) Alcohol intoxication (3) Anxiety (4) Cholecystectomy (5) Depressive Disorder Nec (6) Fractured nasal bones (7) Hypokalemia (8) Infected sebaceous cyst of skin (9) IVDU (intravenous drug user) (10) Migraine (11) Migraine (12) Migraine Unspecified W/O Intractable Migraine (13) Ureteral calculus, right (14) Ureteral calculus, right (15) Vasovagal syncope (16) Vasovagal syncope Family History Cancer Gallbladder disease Hypertension Social History Smoking Status: Former Smoker Alcohol Use: none Drug Use: none Marital Status: Housing Status: lives with significant other Occupation Status: employed Current/Historical Medications Scheduled Cetirizine (Zyrtec), 10 MG PO QAM Clonazepam (Clonazepam), 1 MG PO HS Lamotrigine (Lamictal), 100 MG PO BID Levonorgestrel (Iud) (Gris), 13 MG INT UTER [id number] Venlafaxine Hcl (Effexor Extended Rel), 150 MG PO DAILY Scheduled PRN Ibuprofen Tab (Advil), 800 MG PO Q8 PRN for Headache Rizatriptan Benzoate (Rizatriptan Benzoate), 10 MG PO UD PRN for Migraine Physical Exam Vital Signs Date Time Temp Pulse Resp B/P (MAP) Pulse Ox O2 Delivery O2 Flow Rate FiO2 03/03/18 06:56 36.5 80 18 167/132 97 Room Air Physical Exam GENERAL: 38-year-old white female appears in no acute distress. MENTAL Status: Alert and oriented 3. LUNGS: Clear auscultation without wheezes rales or rhonchi. CARDIAC: Regular rate and rhythm without murmur. Pulses is full and equal throughout. CHEST WALL: No gross bony deformity noted. No erythema or edema noted. The patient is point tenderness to palpation over the left lateral lower chest wall. Remainder chest wall is unremarkable. Medical Decision & Procedures ER Provider Diagnostic Interpretation: L RIBS UNILATERAL WITH PA CHEST CLINICAL HISTORY: tl lower rib pain pain COMPARISON STUDY: No previous studies for comparison. FINDINGS: Negative ribs. Negative chest. IMPRESSION: Negative study Medications Administered Medications (Trade) Dose Ordered Sig/Ron Route Start Time Stop Time Status Last Admin Dose Admin Ketorolac Tromethamine (Toradol Inj) 60 mg NOW STAT IM 03/03/18 07:04 03/03/18 07:07 DC 03/03/18 07:33 60 MG ED Course The patient was evaluated. Patient's EMR medication list were reviewed. The patient was given Toradol 60 mg IM for pain. X-ray of the left ribs include PA chest was ordered interpreted by the radiologist and myself without any acute findings.. Patient was informed of the findings and discharged home in stable condition. Medical Decision Differential diagnosis include pneumonia, pleuritic chest pain, costochondritis , fractured rib, rib contusion PA Drug Monitoring Program Search Results: patient reviewed within database Medication Reconcilliation Current Medication List: was personally reviewed by me Blood Pressure Screening Patient's blood pressure: Elevated blood pressure Blood pressure disposition: Elevated BP felt to be situational Impression Primary Impression: Costochondritis, acute Departure Information Dispostion Home / Self-Care Condition GOOD Referrals Delano Roberts III, CRNP (PCP) Forms HOME CARE DOCUMENTATION FORM, IMPORTANT VISIT INFORMATION, WORK / SCHOOL INSTRUCTIONS Patient Instructions ED Chest Pain Costochondritis, [facility] Additional Instructions Ibuprofen 600 mg every 6 hours with food for pain. Avoid any strenuous exercise with your provider until symptoms resolve. May try warm moist compresses to the affected area intermittently for additional pain relief. If symptoms persist or worsen, follow-up with your family doctor.
[2018-03-03 08:02] VITALS: BP 155/95; PULSE 76; O2SAT 98
== END 2018-03-03 08:04 | disposition home or self-care (01) ==
LOC: C.EDB 06:52
DX: M94.0 Chondrocostal junction syndrome [Tietze] (principal); F41.9 Anxiety disorder, unspecified; F32.9 Major depressive disorder, single episode, unspecified; Z97.5 Presence of (intrauterine) contraceptive device; Z87.891 Personal history of nicotine dependence

== ENCOUNTER 2018-03-28 11:40 | Emergency (ER) | payer OTHER ==
[~2018-03-28] VITALS: Ht 165.1 cm; Wt 116.5 kg
[~2018-03-28 11:40] MED LIST changes: -CHN/1 PO
[2018-03-28 11:44] VITALS: TEMP 36.4; Ht 165.1 cm; Wt 116.5 kg
[2018-03-28] MEDS ORDERED: ALBUT/IPRATROP 3MG/0.5MG NEB 3 ML VIAL INH STA ×2 (12:24→15:08)
[2018-03-28] MEDS ORDERED: ASPIRIN 81 MG CHEW PO STA (12:24)
[2018-03-28 12:39] LABS: BASO % 0.4 %; BASO ABS # 0.03 K/uL (0-0.2); HEMATOCRIT 45.1 % (37-47); IG# 0.03 K/uL (0.00-0.02); LYMPH % 18.1 %; LYMPH ABS # 1.41 K/uL (1.2-3.4); MEAN CELL VOLUME 91.1 fL (80-100); MEAN CORPUSCULAR HEMOGLOBIN 30.3 pg (25-34); MEAN CORPUSCULAR HGB CONC 33.3 g/dl (32-36); MEAN PLATELET VOLUME 10.6 fL (7.4-10.4); MONO ABS # 0.47 K/uL (0.11-0.59); NEUT % 75.1 %; NEUT ABS # 5.87 K/uL (1.4-6.5); PLATELET COUNT 231 K/uL (130-400); RED CELL DISTRIBUTION WIDTH CV 13.5 % (11.5-14.5); RED CELL DISTRIBUTION WIDTH SD 44.3 fL (36.4-46.3); WHITE BLOOD COUNT 7.81 K/uL (4.8-10.8)
[2018-03-28 12:41] LABS: PTT PATIENT 28.3 SECONDS (21.0-31.0)
[2018-03-28 12:51] LABS: ALBUMIN 3.4 gm/dl (3.4-5.0); ALKALINE PHOSPHATASE 86 U/L (45-117); ALT/SGPT 23 U/L (12-78); AST/SGOT 14 U/L (15-37); BLOOD UREA NITROGEN 12 mg/dl (7-18); CALCIUM 8.5 mg/dl (8.5-10.1); CARBON DIOXIDE 27 mmol/L (21-32); CREATININE 0.85 mg/dl (0.60-1.20); GLUCOSE 87 mg/dl (70-99); LIPASE 61 U/L (73-393); POTASSIUM 3.7 mmol/L (3.5-5.1); SODIUM 138 mmol/L (136-145); TOTAL PROTEIN 7.9 gm/dl (6.4-8.2)
[2018-03-28] MEDS ORDERED: NITROGLYCERIN 0.4 MG SL PER TAB CHARGE ONE (13:12)
[2018-03-28 14:01] VITALS: O2SAT 94
--- NOTE | 2018-03-28 14:18 | DIAGNOSTIC IMAGING REPORT ---
CHEST 2 VIEWS ROUTINE HISTORY: 38 years-old Female cp sob acute atypical chest pain with shortness of breath COMPARISON: Chest radiograph 12/21/2016, chest and rib radiographs 03/03/2018 TECHNIQUE: PA and lateral views of the chest FINDINGS: Mild right hemidiaphragmatic elevation. The cardiomediastinal and hilar silhouettes are within normal limits. There is no pneumothorax, pleural effusion, focal airspace consolidation or overt pulmonary edema. The bones of the chest appear grossly intact. Cholecystectomy clips noted. IMPRESSION: No acute process. The above report was generated using voice recognition software. It may contain grammatical, syntax or spelling errors. Electronically signed by: Alfie Cho M.D. 03/28/2018 2:16 PM Dictated Date/Time: 03/28/2018 2:15 PM
[2018-03-28] MEDS ORDERED: OPTIRAY 320 IV PRN (15:30)
--- NOTE | 2018-03-28 16:46 | DIAGNOSTIC IMAGING REPORT ---
CT ANGIOGRAM OF THE CHEST CLINICAL HISTORY: Atypical chest pain, shortness of breath, hypertension. COMPARISON STUDY: Chest x-ray dated 03/28/2018, chest CT dated 01/05/2013 TECHNIQUE: Following the IV administration of 92 mL of [id number]-320, CT angiogram of the thorax was performed from the thoracic inlet to the lung bases utilizing the pulmonary embolus protocol. Images are reviewed in the axial, sagittal, and coronal planes. IV contrast was administered without complication. MIP imaging was performed. A dose lowering technique was utilized adhering to the principles of ALARA. CT DOSE: 535.32 mGycm FINDINGS: No pathologically enlarged axillary mediastinal or hilar lymph nodes were visualized. There was no evidence of thoracic aortic dilatation. There were no pulmonary artery filling defects to indicate acute pulmonary embolism. No pleural effusions are visualized. There is respiratory motion artifact. There are no pleural effusions. There is subtle groundglass attenuation the lungs with a mosaic distribution within the upper lobes. This is a very nonspecific finding which could be infectious/inflammatory, secondary to vascular or airway disease, or atelectatic. IMPRESSION: 1. No evidence of acute pulmonary embolism 2. No evidence of pathologic adenopathy 3. Subtle nonspecific groundglass attenuation the lungs. Electronically signed by: Fabrice Worthy M.D. 03/28/2018 4:45 PM Dictated Date/Time: 03/28/2018 4:40 PM
[2018-03-28] MEDS ORDERED: HYDR25TA4 PO (18:22)
[2018-03-28] MEDS ORDERED: PRVHFAIN INH (18:23)
[2018-03-28] MEDS ORDERED: PRED50TA PO (18:24)
[2018-03-28 18:30] VITALS: BP 164/132; PULSE 95; O2SAT 99
--- NOTE | 2018-03-28 18:58 | EMERGENCY ROOM VISIT NOTE ---
History Report prepared by Rosie: Sheba Vargas Under the Supervision of: Dr. Joel Osorio M.D. First contact with patient: 12:13 Chief Complaint: CHEST PAIN Stated Complaint: CHEST PAINS,HIGH BLOOD PRESSURE/SHORT OF BREATH History of Present Illness The patient is a 38 year old female who presents to the Emergency Room with complaints of sudden chest pain starting this morning. The patient states that she was walking up the stairs when it suddenly came on on the left side. She reports that it felt like a pressure. She notes that along with the pain came shortness of breath and wheezing. She reports that the pain is better with rest. The patient complains of coughing some with the episode. The patient denies increased stress, the pain radiating from her chest, hemoptysis, abdominal pain, use of control, use of hormone creams, recent travel, recent surgeries, recent trauma, the chance of being , use of Aspirin, and a history of asthma. The patient notes that she has a history of hypertension, but doesn't take medications for it. She notes that she was a smoker until November 04 of this year. She notes that she used to smoke a pack a day. Source of History: patient Onset: this morning Position: chest Quality: pressure Timing: other (sudden) Modifying Factors (Relieving): rest Associated Symptoms: + cough, + SOB, No abdominal pain Note: The patient complains of wheezing. The patient denies increased stress, the pain radiating from her chest, hemoptysis, abdominal pain, use of control , use of hormone creams, recent travel, recent surgeries, recent trauma, the chance of being , use of Aspirin, and a history of asthma. Review of Systems See HPI for pertinent positives and negatives. A total of ten systems were reviewed and were otherwise negative. Past Medical & Surgical Medical Problems: (1) Alcohol intoxication (2) Alcohol intoxication (3) Anxiety (4) Cholecystectomy (5) Depressive Disorder Nec (6) Fractured nasal bones (7) Hypokalemia (8) Infected sebaceous cyst of skin (9) IVDU (intravenous drug user) (10) Migraine (11) Migraine (12) Migraine Unspecified W/O Intractable Migraine (13) Ureteral calculus, right (14) Ureteral calculus, right (15) Vasovagal syncope (16) Vasovagal syncope Family History Cancer Gallbladder disease Hypertension Social History Smoking Status: Never Smoker Alcohol Use: none Drug Use: none Marital Status: Housing Status: lives with significant other Occupation Status: employed Current/Historical Medications Scheduled Albuterol (Ventolin Hfa), 2 PUFFS INH QID Cetirizine (Zyrtec), 10 MG PO QAM Clonazepam (Clonazepam), 1 MG PO HS Hydrochlorothiazide (Hctz), 1 TAB PO DAILY Lamotrigine (Lamictal), 100 MG PO BID Levonorgestrel (Iud) (Gris), 13 MG INT UTER [id number] Prednisone (Prednisone), 50 MG PO DAILY Venlafaxine Hcl (Effexor Extended Rel), 150 MG PO DAILY Scheduled PRN Ibuprofen Tab (Advil), 800 MG PO Q8 PRN for Headache Rizatriptan Benzoate (Rizatriptan Benzoate), 10 MG PO UD PRN for Migraine Allergies Coded Allergies: Sumatriptan (Verified Allergy, Intermediate, RED RASH, 03/28/18) Physical Exam Vital Signs Date Time Temp Pulse Resp B/P (MAP) Pulse Ox O2 Delivery O2 Flow Rate FiO2 03/28/18 18:30 95 18 164/132 99 Room Air 03/28/18 18:00 94 19 180/123 93 Room Air 03/28/18 17:30 91 23 181/122 94 Room Air 03/28/18 16:47 96 20 173/127 95 Room Air 03/28/18 15:00 89 20 179/128 92 Room Air 03/28/18 14:01 94 Room Air 03/28/18 13:44 89 20 165/118 93 Room Air 03/28/18 13:06 91 20 190/141 92 Room Air 03/28/18 12:55 96 03/28/18 12:48 92 20 192/145 99 Nebulizer 8.0 03/28/18 12:44 94 Room Air 03/28/18 12:41 94 Room Air 03/28/18 11:44 36.4 98 20 102/73 94 Room Air Physical Exam Physical Exam GENERAL: She is oriented to person, place, and time. She appears well- developed and well-nourished. She does not appear distressed. HENT: Exam performed. Head: Normocephalic and atraumatic. Right Ear: External ear normal. No mastoid tenderness. Left Ear: External ear normal. No mastoid tenderness. Mouth/Throat: The oropharynx is clear and moist. No trismus in the jaw. No dental abscesses or uvula swelling. No oropharyngeal exudate or tonsillar abscesses. EYES: Conjunctivae and EOM are normal. Pupils are equal, round, and reactive to light. Right eye exhibits no discharge. Left eye exhibits no discharge. No scleral icterus. NECK: Normal range of motion. Neck supple. No JVD present. No spinous process tenderness present. No carotid bruit present. No rigidity. No tracheal deviation and normal range of motion present. No Brudzinski's sign and no Kernig 's sign noted. CV: Normal rate, regular rhythm, normal heart sounds and intact distal pulses. There is no peripheral edema. Palpable radial pulses bue. PULM/CHEST: Effort normal and breath sounds normal. No respiratory distress. No stridor. Scant expiratory wheezes. She has no rales. Chest Wall: She exhibits no tenderness. ABD: The abdomen is morbidly obese and soft. Bowel sounds are normal. She has no distension. No mass is present. There is no tenderness. There is no rebound, no guarding, no Pagan's sign and no tenderness at McBurney's point. Rovsig negative MUSC/SKEL: Normal range of motion. There is no peripheral edema, tenderness or deformity. LYMPH: No cervical adenopathy. NEURO: She is alert and oriented to person, place, and time. She has normal strength. No cranial nerve deficit or sensory deficit. Coordination and gait normal. GCS eye subscore is 4. GCS verbal subscore is 5. GCS motor subscore is 6. Cerebellar tests wnl. SKIN: Skin is warm and dry. She is not diaphoretic. PSYCH: She has a normal mood and affect. Behavior is normal. Judgment and thought content normal. Medical Decision & Procedures ER Provider Diagnostic Interpretation: Radiology results as stated below per my review and radiologist interpretation: CHEST 2 VIEWS ROUTINE HISTORY: 38 years-old Female cp sob acute atypical chest pain with shortness of breath COMPARISON: Chest radiograph 12/21/2016, chest and rib radiographs 03/03/2018 TECHNIQUE: PA and lateral views of the chest FINDINGS: Mild right hemidiaphragmatic elevation. The cardiomediastinal and hilar silhouettes are within normal limits. There is no pneumothorax, pleural effusion, focal airspace consolidation or overt pulmonary edema. The bones of the chest appear grossly intact. Cholecystectomy clips noted. IMPRESSION: No acute process. The above report was generated using voice recognition software. It may contain grammatical, syntax or spelling errors. Electronically signed by: Alfie Cho M.D. 03/28/2018 2:16 PM Dictated Date/Time: 03/28/2018 2:[address] ANGIOGRAM OF THE CHEST CLINICAL HISTORY: Atypical chest pain, shortness of breath, hypertension. COMPARISON STUDY: Chest x-ray dated 03/28/2018, chest CT dated 01/05/2013 TECHNIQUE: Following the IV administration of 92 mL of [id number]-320, CT angiogram of the thorax was performed from the thoracic inlet to the lung bases utilizing the pulmonary embolus protocol. Images are reviewed in the axial, sagittal, and coronal planes. IV contrast was administered without complication. MIP imaging was performed. A dose lowering technique was utilized adhering to the principles of ALARA. CT DOSE: 535.32 mGycm FINDINGS: No pathologically enlarged axillary mediastinal or hilar lymph nodes were visualized. There was no evidence of thoracic aortic dilatation. There were no pulmonary artery filling defects to indicate acute pulmonary embolism. No pleural effusions are visualized. There is respiratory motion artifact. There are no pleural effusions. There is subtle groundglass attenuation the lungs with a mosaic distribution within the upper lobes. This is a very nonspecific finding which could be infectious/inflammatory, secondary to vascular or airway disease, or atelectatic. IMPRESSION: 1. No evidence of acute pulmonary embolism 2. No evidence of pathologic adenopathy 3. Subtle nonspecific groundglass attenuation the lungs. Electronically signed by: Fabrice Worthy M.D. 03/28/2018 4:45 PM Dictated Date/Time: 03/28/2018 4:40 PM Laboratory Results 03/28/18 12:05 Red Blood Count 4.95, Mean Corpuscular Volume 91.1, Mean Corpuscular Hemoglobin 30.3, Mean Corpuscular Hemoglobin Concent 33.3, Mean Platelet Volume 10.6, Neutrophils (%) (Auto) 75.1, Lymphocytes (%) (Auto) 18.1, Monocytes (%) (Auto) 6.0, Eosinophils (%) (Auto) 0.0, Basophils (%) (Auto) 0.4, Neutrophils # (Auto) 5.87, Lymphocytes # (Auto) 1.41, Monocytes # (Auto) 0.47, Eosinophils # (Auto) 0.00, Basophils # (Auto) 0.03 03/28/18 12:05 Test 03/28/18 12:05 03/28/18 13:50 03/28/18 17:03 White Blood Count 7.81 K/uL (4.8-10.8) Red Blood Count 4.95 M/uL (4.2-5.4) Hemoglobin 15.0 g/dL (12.0-16.0) Hematocrit 45.1 % (37-47) Mean Corpuscular Volume 91.1 fL (80-100) Mean Corpuscular Hemoglobin 30.3 pg (25-34) Mean Corpuscular Hemoglobin Concent 33.3 g/dl (32-36) Platelet Count 231 K/uL (130-400) Mean Platelet Volume 10.6 fL (7.4-10.4) Neutrophils (%) (Auto) 75.1 % Lymphocytes (%) (Auto) 18.1 % Monocytes (%) (Auto) 6.0 % Eosinophils (%) (Auto) 0.0 % Basophils (%) (Auto) 0.4 % Neutrophils # (Auto) 5.87 K/uL (1.4-6.5) Lymphocytes # (Auto) 1.41 K/uL (1.2-3.4) Monocytes # (Auto) 0.47 K/uL (0.11-0.59) Eosinophils # (Auto) 0.00 K/uL (0-0.5) Basophils # (Auto) 0.03 K/uL (0-0.2) RDW Standard Deviation 44.3 fL (36.4-46.3) RDW Coefficient of Variation 13.5 % (11.5-14.5) Immature Granulocyte % (Auto) 0.4 % Immature Granulocyte # (Auto) 0.03 K/uL (0.00-0.02) Prothrombin Time 10.5 SECONDS (9.0-12.0) Prothromb Time International Ratio 1.0 (0.9-1.1) Activated Partial Thromboplast Time 28.3 SECONDS (21.0-31.0) Partial Thromboplastin Ratio 1.1 D-Dimer 840 ug/L FEU (0-500) Anion Gap 7.0 mmol/L (3-11) Est Creatinine Clear Calc Drug Dose 112.2 ml/min Estimated GFR () 99.3 Estimated GFR (Non- 85.7 BUN/Creatinine Ratio 14.0 (10-20) Calcium Level 8.5 mg/dl (8.5-10.1) Total Bilirubin 0.3 mg/dl (0.2-1) Direct Bilirubin mg/dl (0-0.2) Aspartate Amino Transf (AST/SGOT) 14 U/L (15-37) Alanine Aminotransferase (ALT/SGPT) 23 U/L (12-78) Alkaline Phosphatase 86 U/L (45-117) Total Protein 7.9 gm/dl (6.4-8.2) Albumin 3.4 gm/dl (3.4-5.0) Lipase 61 U/L (73-393) Chemistry Specimen Hemolysis Urine Color YELLOW Urine Appearance CLEAR (CLEAR) Urine pH 7.0 (4.5-7.5) Urine Specific [place] 1.019 (1.000-1.030) Urine Protein TRACE (NEG) Urine Glucose (UA) NEG (NEG) Urine Ketones NEG (NEG) Urine Occult Blood NEG (NEG) Urine Nitrite NEG (NEG) Urine Bilirubin NEG (NEG) Urine Urobilinogen NEG (NEG) Urine Leukocyte Esterase SMALL (NEG) Urine WBC (Auto) 10-30 /hpf (0-5) Urine RBC (Auto) 0-4 /hpf (0-4) Urine Hyaline Casts (Auto) 1-5 /lpf (0-5) Urine Epithelial Cells (Auto) >30 /lpf (0-5) Urine Bacteria (Auto) 1+ (NEG) Urine Renal Epithelial Cells /lpf (0-5) Urine Test NEG (NEG) Troponin I 0.015 ng/ml (0-0.045) Laboratory results reviewed by me Medications Administered Medications (Trade) Dose Ordered Sig/Ron Route Start Time Stop Time Status Last Admin Dose Admin Aspirin (Aspirin Chew) 324 mg NOW STAT PO 03/28/18 12:24 03/28/18 12:26 DC 03/28/18 12:38 324 MG Albuterol/ Ipratropium (Duoneb) 3 ml NOW STAT INH 03/28/18 12:24 03/28/18 12:26 DC 03/28/18 12:38 3 ML Nitroglycerin (Nitrostat Tab) 0.4 mg STK-MED ONCE .ROUTE 03/28/18 13:12 03/28/18 13:13 DC 03/28/18 13:14 0.4 MG Albuterol/ Ipratropium (Duoneb) 3 ml NOW STAT INH 03/28/18 15:08 03/28/18 15:10 DC 03/28/18 15:30 3 ML Prednisone (PredniSONE TAB) 60 mg STK-MED ONCE .ROUTE 03/28/18 18:39 03/28/18 18:40 DC 03/28/18 18:42 60 MG ECG Per My Interpretation Indication: chest pain Rate (beats per minute): 91 Rhythm: sinus rhythm Findings: other (PE, QRS, and QT-c are within normal limits, no ST depressions or elevations, left ventricular hypertrophy present) ED Course 1222: The patient was evaluated in room C5. A complete history and physical exam was performed. 1224: Ordered Duoneb 3 ml INH, Aspirin 324 mg PO. 1310: I reevaluated the patient at this time. She states that her breathing has improved after the breathing treatment. On repeat lung exam, she has no more wheezes. The patient doesn't feel like she needs another breathing treatment at this time. 1312: Ordered Nitroglycerin 0.4 mg sublingual. 1459: I reevaluated the patient and she is not longer having chest pain. Her labs are within normal limits. She started reporting increased dyspnea. Her lung exam is clear. We will do a D-Dimer and repeat another Duoneb treatment. 1508: Ordered Duoneb 3 ml INH. 1510: Her D-Dimer is elevated so we will obtain a CT of her chest. 1823: I reevaluated the patient and updated her on her test results. The repeat troponin and CT chest are within normal limits. The patient has been hypertensive in the ED. She no longer reports chest pain or difficulty breathing. The patient states that she stopped taking Amlodipine 5 mg because it was making her itch and have a rash. She will be discharged on Hydrochlorothiazide, steroids, and an inhaler. She was instructed follow up with her PCP. DISCHARGE - Plan of care discussed with patient and questions answered. The patient was given both verbal and printed discharge instructions. The patient verbalized understanding and ability to comply. The patient is to seek outpatient follow up as noted in the discharge instructions. The patient verbalized understanding and ability to comply. The patient is discharged in stable condition. The patient was instructed to return for worsening symptoms. 1824: Ordered Prednisone 60 mg PO. Medical Decision 1222: The patient was evaluated in room C5. A complete history and physical exam was performed. 1224: Ordered Duoneb 3 ml INH, Aspirin 324 mg PO. 1310: I reevaluated the patient at this time. She states that her breathing has improved after the breathing treatment. On repeat lung exam, she has no more wheezes. The patient doesn't feel like she needs another breathing treatment at this time. 1312: Ordered Nitroglycerin 0.4 mg sublingual. 1459: I reevaluated the patient and she is not longer having chest pain. Her labs are within normal limits. She started reporting increased dyspnea. Her lung exam is clear. We will do a D-Dimer and repeat another Duoneb treatment. 1508: Ordered Duoneb 3 ml INH. 1510: Her D-Dimer is elevated so we will obtain a CT of her chest. 1823: I reevaluated the patient and updated her on her test results. The repeat troponin and CT chest are within normal limits. The patient has been hypertensive in the ED. She no longer reports chest pain or difficulty breathing. The patient states that she stopped taking Amlodipine 5 mg because it was making her itch and have a rash. She will be discharged on Hydrochlorothiazide, steroids, and an inhaler. She was instructed follow up with her PCP. DISCHARGE - Plan of care discussed with patient and questions answered. The patient was given both verbal and printed discharge instructions. The patient verbalized understanding and ability to comply. The patient is to seek outpatient follow up as noted in the discharge instructions. The patient verbalized understanding and ability to comply. The patient is discharged in stable condition. The patient was instructed to return for worsening symptoms. 1824: Ordered Prednisone 60 mg PO. Medication Reconcilliation Current Medication List: was personally reviewed by me Blood Pressure Screening Patient's blood pressure: Elevated blood pressure Blood pressure disposition: Referred to PCP Impression Primary Impression: Chest pain Additional Impression: Dyspnea Scribe Attestation The scribe's documentation has been prepared under my direction and personally reviewed by me in its entirety. I confirm that the note above accurately reflects all work, treatment, procedures, and medical decision making performed by me. The chart was completed utilizing [employer] Speech voice recognition software. Grammatical errors, random word insertions, pronoun errors, and incomplete sentences are an occasional consequence of this system due to software limitations, ambient noise, and hardware issues. Any formal questions or concerns about the content, text, or information contained within the body of this dictation should be directly addressed to the physician for clarification. Departure Information Dispostion Home / Self-Care Prescriptions Prednisone (Prednisone) 50 Mg Tab 50 MG PO DAILY for 4 Days, #4 TAB Prov: Joel Osorio M.D. 03/28/18 Albuterol (Ventolin Hfa) 60 Puffs/5400 Mcg Aers 2 PUFFS INH QID for 5 Days, #1 INHALER Prov: Joel Osorio M.D. 03/28/18 Hydrochlorothiazide (HCTZ) 25 Mg Tab 1 TAB PO DAILY for 30 Days, #30 TAB 0 Refills Prov: Joel Osorio M.D. 03/28/18 Referrals Delano Roberts III, CRNP (PCP) Forms Call Back Authorization, HOME CARE DOCUMENTATION FORM, IMPORTANT VISIT INFORMATION Patient Instructions My [facility] Additional Instructions Return to the emergency department if you develop fever worsening difficulty breathing, worsening chest pain, lose consciousness, headache, vision changes, or your symptoms worsen. Problem Qualifiers Primary Impression: Chest pain Chest pain type: unspecified Qualified Codes: R07.9 - Chest pain, unspecified Additional Impression: Dyspnea Dyspnea type: unspecified Qualified Codes: R06.00 - Dyspnea, unspecified
== END 2018-03-28 18:35 | disposition home or self-care (01) ==
LOC: C.EDB 11:41 → C.EDC 18:35
DX: R07.9 Chest pain, unspecified (principal); R06.00 Dyspnea, unspecified; F41.9 Anxiety disorder, unspecified; F32.9 Major depressive disorder, single episode, unspecified; E87.6 Hypokalemia; Z88.8 Allergy status to other drugs, medicaments and biological substances

== ENCOUNTER 2023-11-21 00:46 | Inpatient (IN) ==
[2023-11-21 01:36] LABS: Basophils # (auto) 0.05 K/uL (0.00-0.20); Basophils % (auto) 0.6 %; Eosinophils # (auto) 0.02 K/uL (0.00-0.50); Eosinophils % (auto) 0.2 %; Hemoglobin 13.9 g/dl (12.0-16.0); Immature Granulocytes # (auto) 0.03 K/uL (0.01-0.20); Immature Granulocytes % (auto) 0.4 %; Lymphocytes # (auto) 1.04 K/uL (1.20-3.40); Lymphocytes % (auto) 12.7 %; Mean Corpuscular Hemoglobin 31.6 pg (25.0-34.0); Mean Corpuscular Hgb Conc 33.9 g/dL (32.0-36.0); Mean Corpuscular Volume 93.2 fL (80.0-100.0); Mean Platelet Volume 10.5 fL (9.4-12.4); Monocytes # (auto) 0.31 K/uL (0.11-0.59); Monocytes % (auto) 3.8 %; Neutrophils # (auto) 6.74 K/uL (1.40-6.50); Neutrophils % (auto) 82.3 %; Platelet Count 216 K/uL (130-400); RDW Coefficient of Variation 12.7 % (11.5-14.5); RDW Standard Deviation 43.3 fL (36.4-46.3); White Blood Count 8.19 K/ul (4.8-10.8)
[2023-11-21 01:52] LABS: Albumin Globulin Ratio 1.2 (0.9-2); BUN Creatinine Ratio 24.5 (10-20); Bilirubin,Total 0.4 mg/dl (0.2-1.0); Calcium 9.7 mg/dl (8.6-10.3); Creatinine Clr Calc Pharmacy 96.5 ml/min; Est GFR (African American) 73.4 ml/min; Est GFR (Non-African American) 63.4 ml/min; Globulin 3.3 gm/dl (2.5-4.0); Potassium 3.1 mmol/L (3.5-5.1); Total Protein 7.3 gm/dl (6.0-8.3)
[2023-11-21] MEDS: SODIUM CHLORIDE 0.9% 500 ML IV STA (02:15)
--- NOTE | 2023-11-21 02:25 | Emergency Department Note ---
History of Present Illness General Chief complaint: Kidney Stone Stated complaint: KIDNEY STONE Time Seen by Provider: 11/21/23 02:14 History of Present Illness Maximum Pain Intensity: 10 This is a 43-year-old female presenting to the emergency department for evaluation of right flank pain radiating into her right lower quadrant for the past 2 or 3 days. Patient states that she does have a history of kidney stones and this feels similar. Initially her pain was very low, however tonight it escalated significantly to a 10/10. She has not had fevers or chills. She denies chance of as she has an IUD. The patient has a past history of cholecystectomy. No recent travel. Home Medications Medication Instructions Recorded Confirmed Type cetirizine 10 mg tablet (Zyrtec) 10 mg PO QAM 12/26/18 11/21/23 History ibuprofen 800 mg tablet 800 mg PO TID PRN pain #90 tabs 03/14/21 11/21/23 Rx ondansetron 4 mg disintegrating 4 mg PO Q8H PRN nausea and 11/01/21 11/21/23 Rx tablet vomiting #10 tabs rizatriptan 10 mg tablet 10 mg PO Q2H PRN Migraine Headache 01/19/22 11/21/23 Rx #10 tabs duloxetine 60 mg capsule,delayed 60 mg PO QAM #90 caps 11/27/22 11/21/23 Rx release metoprolol succinate 100 mg 100 mg PO HS #90 tabs 04/30/23 11/21/23 Rx tablet,extended release 24 hr lamotrigine 100 mg tablet 100 mg PO BID #60 tabs 07/31/23 11/21/23 Rx clonazepam 1 mg tablet 1 mg PO HS #30 tabs 09/17/23 11/21/23 Rx duloxetine 30 mg capsule,delayed 30 mg PO DAILY #90 caps 09/27/23 11/21/23 Rx release (Cymbalta) lisinopril 20 1 tab PO BID #180 tabs 10/08/23 11/21/23 Rx mg-hydrochlorothiazide 25 mg tablet Allergies Allergy/AdvReac Type Severity Reaction Status Date / Time sumatriptan Allergy Intermediate Red rash Verified 11/21/23 01:58 nickel Allergy Mild Rash Verified 11/21/23 01:58 Past Med/Surg History Medical History (Updated 11/21/23 @ 07:13 by Donte Woodward PA-C) Nephrolithiasis 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 Kidney stones History of substance abuse IV "speed", heroin; no illicit substance 4+ yrs Morbid obesity with BMI of 50.0-59.9, adult Chronic back pain Depression Hypertension controlled, stable per pt Anxiety Migraine Surgical History S/P total left hip arthroplasty History of dilatation and curettage Hysteroscopy, colposcopy, IUD removal/replacement (10/10/21): LMA#5 at [facility] History of carpal tunnel release RIGHT History of colposcopy Hx of lithotripsy Left ESWL: 10/02/14: LMA#4 at [facility] (wt at time 79kg) History of tooth extraction History of laparoscopic cholecystectomy Family History Mother Thyroid disease Other No family history of adverse response to anesthesia Denies family history of Ovarian cancer Prostate cancer Myocardial infarction Breast cancer Colorectal cancer Social History Smoking Status: Never smoker Tobacco Type: Cigarettes Age Started Using Tobacco: 14; Age Quit Using Tobacco: 37; packs per day: 1; Second Hand Exposure: No; Do You Dip or Chew Tobacco: No; Hx Alcohol Use: Yes Alcohol type: beer Alcohol Intake Frequency: Monthly or Less Hx Substance Use: No Preferred Language: Paraguayan Communication Ability: Effective Visual Impairment: No Limitations Hearing Ability: Normal Child Support Agent Required: No Beliefs That Will Affect Care: None marital status: Current Living Situation: Spouse and Family Current Living Situation Comment: , son and grandchild current occupational status: employed 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, 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 Safe at Home: Yes Childhood Exposure to Second-Hand Smoke: Yes Diet: regular Dental Care, Regularly: No Physical Activity Frequency: Does not Exercise Seatbelt Use: always Sunscreen Use: No Assistive Devices: Glasses Review of Systems A total of 10 systems reviewed and were otherwise negative Physical Exam Vital Signs Vital Signs - 24 hr 11/21/23 00:47 11/21/23 01:15 11/21/23 01:16 Temperature 36.6 C Temperature Source Temporal Artery Scan Pulse Rate 87 85 85 Pulse Rate from SpO2 Sensor 85 Pulse Rhythm Regular Pulse Strength Normal Respiratory Rate 22 21 Respiratory Effort / Characteristics Non-Labored Spontaneous Respiratory Depth Normal Respiratory Pattern Regular Blood Pressure 154/94 H Blood Pressure Mean 114 Blood Pressure Position Sitting Pulse Oximetry 95 92 Oxygen Delivery Method Room Air Sepsis Recent Fever Within 48 Hours No Sepsis New/Unexplained Change in Mental Status N/A Sepsis Action Taken by Nursing No Action Required 11/21/23 01:20 11/21/23 01:30 11/21/23 01:40 Temperature Temperature Source Pulse Rate 86 85 85 Pulse Rate from SpO2 Sensor 86 85 87 Pulse Rhythm Pulse Strength Respiratory Rate 28 H 21 18 Respiratory Effort / Characteristics Respiratory Depth Respiratory Pattern Blood Pressure Blood Pressure Mean Blood Pressure Position Pulse Oximetry 93 93 Oxygen Delivery Method Sepsis Recent Fever Within 48 Hours Sepsis New/Unexplained Change in Mental Status Sepsis Action Taken by Nursing 11/21/23 01:50 11/21/23 02:00 11/21/23 02:10 Temperature Temperature Source Pulse Rate 85 88 86 Pulse Rate from SpO2 Sensor 85 89 88 Pulse Rhythm Pulse Strength Respiratory Rate 26 H 23 20 Respiratory Effort / Characteristics Respiratory Depth Respiratory Pattern Blood Pressure 154/108 H Blood Pressure Mean 123 Blood Pressure Position Pulse Oximetry 90 91 92 Oxygen Delivery Method Sepsis Recent Fever Within 48 Hours Sepsis New/Unexplained Change in Mental Status Sepsis Action Taken by Nursing 11/21/23 03:03 11/21/23 03:09 11/21/23 03:09 Temperature Temperature Source Pulse Rate 84 87 87 Pulse Rate from SpO2 Sensor 87 Pulse Rhythm Pulse Strength Respiratory Rate 23 28 H 28 H Respiratory Effort / Characteristics Respiratory Depth Respiratory Pattern Blood Pressure 120/90 120/90 Blood Pressure Mean 100 105 Blood Pressure Position Pulse Oximetry 92 90 90 Oxygen Delivery Method Sepsis Recent Fever Within 48 Hours Sepsis New/Unexplained Change in Mental Status Sepsis Action Taken by Nursing 11/21/23 03:10 11/21/23 03:20 11/21/23 03:30 Temperature Temperature Source Pulse Rate 86 88 86 Pulse Rate from SpO2 Sensor 88 87 Pulse Rhythm Pulse Strength Respiratory Rate 33 H 25 H 29 H Respiratory Effort / Characteristics Respiratory Depth Respiratory Pattern Blood Pressure Blood Pressure Mean Blood Pressure Position Pulse Oximetry 90 90 Oxygen Delivery Method Sepsis Recent Fever Within 48 Hours Sepsis New/Unexplained Change in Mental Status Sepsis Action Taken by Nursing 11/21/23 03:40 11/21/23 03:50 11/21/23 04:00 Temperature Temperature Source Pulse Rate 87 85 87 Pulse Rate from SpO2 Sensor Pulse Rhythm Pulse Strength Respiratory Rate 32 H 31 H 31 H Respiratory Effort / Characteristics Respiratory Depth Respiratory Pattern Blood Pressure Blood Pressure Mean Blood Pressure Position Pulse Oximetry Oxygen Delivery Method Sepsis Recent Fever Within 48 Hours Sepsis New/Unexplained Change in Mental Status Sepsis Action Taken by Nursing 11/21/23 04:10 11/21/23 04:38 11/21/23 04:40 Temperature Temperature Source Pulse Rate 87 80 80 Pulse Rate from SpO2 Sensor Pulse Rhythm Pulse Strength Respiratory Rate 32 H 19 25 H Respiratory Effort / Characteristics Respiratory Depth Respiratory Pattern Blood Pressure Blood Pressure Mean Blood Pressure Position Pulse Oximetry Oxygen Delivery Method Sepsis Recent Fever Within 48 Hours Sepsis New/Unexplained Change in Mental Status Sepsis Action Taken by Nursing 11/21/23 04:44 11/21/23 04:44 11/21/23 04:50 Temperature Temperature Source Pulse Rate 80 80 83 Pulse Rate from SpO2 Sensor Pulse Rhythm Pulse Strength Respiratory Rate 20 20 24 Respiratory Effort / Characteristics Respiratory Depth Respiratory Pattern Blood Pressure 117/91 Blood Pressure Mean 104 Blood Pressure Position Pulse Oximetry 96 Oxygen Delivery Method Room Air Sepsis Recent Fever Within 48 Hours Sepsis New/Unexplained Change in Mental Status Sepsis Action Taken by Nursing 11/21/23 05:00 11/21/23 05:10 11/21/23 05:16 Temperature Temperature Source Pulse Rate 81 79 82 Pulse Rate from SpO2 Sensor Pulse Rhythm Pulse Strength Respiratory Rate 23 27 H Respiratory Effort / Characteristics Respiratory Depth Respiratory Pattern Blood Pressure Blood Pressure Mean Blood Pressure Position Pulse Oximetry Oxygen Delivery Method Sepsis Recent Fever Within 48 Hours Sepsis New/Unexplained Change in Mental Status Sepsis Action Taken by Nursing 11/21/23 05:20 11/21/23 05:30 11/21/23 05:30 Temperature Temperature Source Pulse Rate 81 82 82 Pulse Rate from SpO2 Sensor Pulse Rhythm Pulse Strength Respiratory Rate 27 H 26 H 26 H Respiratory Effort / Characteristics Respiratory Depth Respiratory Pattern Blood Pressure 113/88 Blood Pressure Mean 99 Blood Pressure Position Pulse Oximetry 91 Oxygen Delivery Method Room Air Sepsis Recent Fever Within 48 Hours Sepsis New/Unexplained Change in Mental Status Sepsis Action Taken by Nursing 11/21/23 05:40 11/21/23 05:50 11/21/23 06:00 Temperature Temperature Source Pulse Rate 77 83 77 Pulse Rate from SpO2 Sensor Pulse Rhythm Pulse Strength Respiratory Rate 28 H 25 H 30 H Respiratory Effort / Characteristics Respiratory Depth Respiratory Pattern Blood Pressure 136/92 Blood Pressure Mean 105 Blood Pressure Position Pulse Oximetry Oxygen Delivery Method Sepsis Recent Fever Within 48 Hours Sepsis New/Unexplained Change in Mental Status Sepsis Action Taken by Nursing 11/21/23 06:00 Temperature Temperature Source Pulse Rate 77 Pulse Rate from SpO2 Sensor Pulse Rhythm Pulse Strength Respiratory Rate 30 H Respiratory Effort / Characteristics Respiratory Depth Respiratory Pattern Blood Pressure Blood Pressure Mean Blood Pressure Position Pulse Oximetry Oxygen Delivery Method Sepsis Recent Fever Within 48 Hours Sepsis New/Unexplained Change in Mental Status Sepsis Action Taken by Nursing VITALS: Vitals are noted on the nurse's note and reviewed by myself. Vital signs stable. GENERAL: Well-developed, well-nourished, white female, who is in no acute distress and resting comfortably. Patient is cooperative with the examination. HEAD: Normocephalic atraumatic. NECK: Supple without nuchal rigidity. No lymphadenopathy. No thyromegaly. Cervical spine is nontender. HEART: Regular rate and rhythm without murmurs gallops or rubs. LUNGS: Clear to auscultation bilaterally without wheezes, rales or rhonchi. No retractions or accessory muscle use. ABDOMEN: Positive normal bowel sounds x 4. Soft, nontender, without masses or organomegaly. No guarding or rebound tenderness. MUSCULOSKELETAL: No muscle atrophy, erythema, or edema noted. Full range of motion in all extremities. Course Administered Medications Potassium Chloride/Sodium Chloride (Normal Saline W/20 Meq Kcl) 20 meq in 1,000 mls @ 100 mls/hr IV .Q10H [facility]; Protocol Stop: 12/21/23 05:59 Last Admin: 11/21/23 06:43 Dose: 100 mls/hr Documented By: LAURA Discontinued Medications Sodium Chloride (Nss) 500 mls @ 999 mls/hr IV .Q31M STA Stop: 11/21/23 01:42 Last Admin: 11/21/23 02:16 Dose: Not Given Documented By: BREEZY Sodium Chloride (Nss) 1,000 mls @ 999 mls/hr IV .Q1H1M [facility] Stop: 11/21/23 03:30 Last Infusion: 11/21/23 04:30 Dose: Infused Documented By: Admin: 11/21/23 03:00 Dose: 999 mls/hr Documented By: BREEZY Ceftriaxone Sodium (Rocephin) 2,000 mg in 50 mls @ 100 mls/hr IV NOW STA Stop: 11/21/23 04:21 Last Infusion: 11/21/23 05:09 Dose: Infused Documented By: Admin: 11/21/23 04:34 Dose: 100 mls/hr Documented By: BREEZY Acetaminophen (Ofirmev) 1,000 mg in 100 mls @ 400 mls/hr IV NOW STA Stop: 11/21/23 04:36 Last Infusion: 11/21/23 05:34 Dose: Infused Documented By: Admin: 11/21/23 05:11 Dose: 400 mls/hr Documented By: BREEZY Ketorolac Tromethamine (Ketorolac 30 Mg/Ml Vial) 30 mg IV NOW STA Stop: 11/21/23 02:21 Last Admin: 11/21/23 03:00 Dose: 30 mg Documented By: BREEZY Ondansetron HCl (Ondansetron Inj 2 Mg/Ml 2 Ml Vial) 4 mg IV NOW STA Stop: 11/21/23 02:21 Last Admin: 11/21/23 03:01 Dose: 4 mg Documented By: BREEZY Tamsulosin HCl (Tamsulosin Hcl 0.4 Mg Cap) 0.4 mg PO NOW ONE Stop: 11/21/23 05:12 Last Admin: 11/21/23 05:19 Dose: 0.4 mg Documented By: BREEZY Medical Decision Making Differential Diagnosis Differential diagnosis: Etiologies such as shingles, pyelonephritis/UTI, renal colic, appendicitis, diverticulitis, mesenteric ischemia, torsion, aortic pathology, infections, inflammatory bowel disease, bowel obstruction, PUD, biliary pathology, as well as others were entertained. Laboratory Data 11/21/23 01:05 11/21/23 01:05 Lab Results 11/21/23 11/21/23 Range/Units 01:05 02:26 WBC 8.19 (4.8-10.8) K/ul RBC 4.40 (4.20-5.40) M/uL Hgb 13.9 (12.0-16.0) g/dl Hct 41.0 (37.0-47.0) % MCV 93.2 (80.0-100.0) fL MCH 31.6 (25.0-34.0) pg MCHC 33.9 (32.0-36.0) g/dL RDW Std Deviation 43.3 (36.4-46.3) fL RDW Coeff of Jonh 12.7 (11.5-14.5) % Plt Count 216 (130-400) K/uL MPV 10.5 (9.4-12.4) fL Immature Gran % (Auto) 0.4 % Neut % (Auto) 82.3 % Lymph % (Auto) 12.7 % [place] % (Auto) 3.8 % Eos % (Auto) 0.2 % Baso % (Auto) 0.6 % Neut # (Auto) 6.74 H (1.40-6.50) K/uL Lymph # (Auto) 1.04 L (1.20-3.40) K/uL Norton # (Auto) 0.31 (0.11-0.59) K/uL Eos # (Auto) 0.02 (0.00-0.50) K/uL Baso # (Auto) 0.05 (0.00-0.20) K/uL Immature Gran # (Auto) 0.03 (0.01-0.20) K/uL Sodium 139 (136-145) mmol/L Potassium 3.1 L (3.5-5.1) mmol/L Chloride 99 (98-107) mmol/L Carbon Dioxide 29 (21-32) mmol/L Anion Gap 11 (3-11) BUN 26 H (6-23) mg/dl Creatinine 1.06 (0.6-1.2) mg/dl Est Cr Clr Drug Dosing 96.5 ml/min Est GFR ( Amer) 73.4 ml/min Est GFR (Non-Af Amer) 63.4 ml/min BUN/Creatinine Ratio 24.5 H (10-20) Glucose 126 H (70-99(Fasting)) mg/dl Calcium 9.7 (8.6-10.3) mg/dl Magnesium 1.8 (1.7-2.4) mg/dl Total Bilirubin 0.4 (0.2-1.0) mg/dl AST 13 (13-39) U/L ALT 14 (7-52) U/L Alkaline Phosphatase 52 (34-104) U/L Total Protein 7.3 (6.0-8.3) gm/dl Albumin 4.0 (3.4-5.0) gm/dl Globulin 3.3 (2.5-4.0) gm/dl Albumin/Globulin Ratio 1.2 (0.9-2) Lipase 8 L (11-82) U/L Urine Color Yellow Urine Appearance Cloudy A (Clear) Urine pH 7.5 (4.5-7.5) POC Urine pH 6 (4.5-7.5) Ur Specific [place] 1.024 (1.000-1.030) Urine Protein Trace H (Negative) POC Urine Protein Trace H (Negative) Urine Glucose (UA) Negative (Negative) POC Ur Glucose (UA) Normal (Normal) Urine Ketones Trace H (Negative) POC Urine Ketones Negative (Negative) Urine Blood 1+ H (Negative) POC Urine Blood 50 H (Negative) Urine Nitrite Positive A (Negative) POC Urine Nitrite Positive A (Negative) Urine Bilirubin Negative (Negative) POC Urine Bilirubin Negative (Negative) Urine Urobilinogen Negative (Negative) Ur Leukocyte Esterase 2+ H (Negative) POC U Leukocyte Esteras 1+ H (Negative) Urine WBC (Auto) >50 H (0-5) /hpf Urine RBC (Auto) 0-2 (0-2) /hpf U Hyaline Cast (Auto) 0-2 (0-2) /lpf U Epithel Cells (Auto) 0-2 (0-2) /hpf Urine Bacteria (Auto) 4+ H (None Seen) POC Ur Test NEG (NEG) Imaging Data Radiologist's Impression: Abdomen/Pelvis CT 11/21/23 02:20 CR Exam(s): CT ABDOMEN + PELVIS Without Contrast EXAM: CT Abdomen and Pelvis Without Intravenous Contrast CLINICAL HISTORY: Reason for exam: right side flank pain. No gallbladder. hx stones. TECHNIQUE: Axial computed tomography images of the abdomen and pelvis without intravenous contrast. Automated exposure control was utilized for the study. A dose lowering technique was utilized adhering to the principles of ALARA. COMPARISON: No relevant prior studies available. FINDINGS: Limitations: Limited evaluation in the absence of contrast. Lung bases: Unremarkable. No mass. No consolidation. ABDOMEN: Liver: Unremarkable. Gallbladder and bile ducts: Cholecystectomy changes with reservoir effect. No ductal dilation. Pancreas: Unremarkable. No ductal dilation. Spleen: Unremarkable. No splenomegaly. Adrenals: Unremarkable. No mass. Kidneys and ureters: Obstructive 8 x 5 x 7 mm calculus within the right ureteropelvic junction (not noted on conformal pad former imaging) with upstream mild right renal hydronephrosis with perinephric and periureteral stranding. Stomach and bowel: No evidence of bowel obstruction. Colonic diverticulosis. No evidence of diverticulitis. PELVIS: Appendix: Normal appendix. Bladder: Unremarkable. No stones. Reproductive: IUD in situ. ABDOMEN and PELVIS: Intraperitoneal space: Unremarkable. No free air. No significant fluid collection. Bones/joints: Left total hip arthroplasty changes. Degenerative changes in the spine. No acute fracture. No dislocation. Soft tissues: Umbilical hernia containing fat. Vasculature: Unremarkable. No abdominal aortic aneurysm. Lymph nodes: Unremarkable. No enlarged lymph nodes. IMPRESSION: 1. Obstructive 8 x 5 x 7 mm calculus within the right ureteropelvic junction (not noted on conformal pad former imaging) with upstream mild right renal hydronephrosis with perinephric and periureteral stranding. 2. No other acute findings. 3. Incidental findings as described. Communications: Verify Receipt Electronically signed by: Gavino Sloan MD 11/21/23 04:05 AM MDM Narrative Physical exam and history were performed. Nursing notes, EMR, and Medication List were personally reviewed. No social concerns were identified as barriers to patients care. Patient appears to have flank pain bringing her to the ER. She does have a history of kidney stones, and she is describing colicky pain. IV access was established and labs were obtained. Patient was hydrated and medicated as above. She was sent to CT scan for imaging of her abdomen and pelvis. Patient's blood work is as above and was reviewed. She does not have a significantly elevated white blood cell count, gross anemia, bandemia, or significant electrolyte imbalance. Transaminases not diagnostic. Urine is suggestive of infection as she does have positive nitrites, positive esterase, as well as a large amount of bacteria. Because of this she was empirically started on IV Rocephin in the ER. CT scan is as above and was reviewed by myself and radiology. The patient does have a roughly 8 mm proximal ureteral stone. This would correlate with her symptoms. Out of concern for the size of the stone and likely infected urine, I do not feel she is safe for discharge and care will need to be escalated. The case was discussed both with the on-call hospitalist team, as well as the on- call urology team. Please see their dictations for further patient course, plan, and disposition. The chart was completed utilizing Dragon Speech Voice Recognition Software. Grammatical errors, random word insertions, pronoun errors, and incomplete sentences are an occasional consequence of this system due to software limitations, ambient noise, and hardware issues. Any formal questions or concerns about the content, text, or information contained within the body of this dictation should be directly addressed to the provider for clarification. . Impression & Plan Obstruction of right ureteropelvic junction (UPJ) due to stone, Urinary tract infection Discharge Plan Visit Data Chief Complaint: Kidney Stone Stated Complaint: KIDNEY STONE ED Provider: Binta Pham ED Midlevel Provider: Donte Woodward Discharge Problem: Obstruction of right ureteropelvic junction (UPJ) due to stone, Urinary tract infection Forms Stand Alone Forms: [employer] Prescriptions Prescriptions: No Action ibuprofen 800 mg tablet 800 mg PO TID PRN (Reason: pain) Qty: 90 5RF rizatriptan 10 mg tablet 10 mg PO Q2H MDD 2 tablets/day, 3 days/week PRN (Reason: Migraine Headache) Qty: 10 5RF duloxetine 60 mg capsule,delayed release(DR/EC) 60 mg PO QAM Qty: 90 3RF Rx Instructions: TOTAL DOSE 90 MG--TAKES WITH 30 MG CAP. metoprolol succinate 100 mg tablet extended release 24 hr 100 mg PO HS Qty: 90 3RF lamotrigine 100 mg tablet 100 mg PO BID Qty: 60 5RF clonazepam 1 mg tablet 1 mg PO HS Qty: 30 2RF lisinopril-hydrochlorothiazide 20-25 mg tablet 1 tab PO BID Qty: 180 3RF duloxetine [Cymbalta] 30 mg capsule,delayed release(DR/EC) 30 mg PO DAILY Qty: 90 1RF Rx Instructions: Take one daily with 60mg capsule to total 90mg daily. cetirizine [Zyrtec] 10 mg Tablet 10 mg PO QAM ondansetron 4 mg tablet,disintegrating 4 mg PO Q8H PRN (Reason: nausea and vomiting) Qty: 10 0RF Referrals Referrals: Delano Roberts III, CRNP [Primary Care Provider] -
[2023-11-21 02:35] LABS: POC Urine Bilirubin Negative (Negative); POC Urine Blood 50 (Negative); POC Urine Glucose Normal (Normal); POC Urine Ketones Negative (Negative); POC Urine Leukocytes 1+ (Negative); POC Urine Nitrite Positive (Negative); POC Urine Protein Trace (Negative); POC Urine pH 6 (4.5-7.5)
[2023-11-21 02:40] LABS: Appearance Urine Cloudy (Clear); Bacteria Urine Automated 4+ (None Seen); Bilirubin Urine Negative (Negative); Blood Urine 1+ (Negative); Cast Urine Automated 0-2 /lpf (0-2); Color Urine Yellow; Epithelial Cell Urine Auto 0-2 /hpf (0-2); Glucose Urine UA Negative (Negative); Ketones Urine Trace (Negative); Leukocyte Esterase Urine 2+ (Negative); Nitrite Urine Positive (Negative); Protein Urine Trace (Negative); RBC Urine Automated 0-2 /hpf (0-2); Specific Gravity Urine 1.024 (1.000-1.030); Urobilinogen Urine Negative (Negative); WBC Urine Automated >50 /hpf (0-5); pH Urine 7.5 (4.5-7.5)
[2023-11-21] MEDS: KETOROLAC 30 MG/ML VIAL IV STA (03:00)
[2023-11-21] MEDS: SODIUM CHLORIDE 0.9% 1,000 ML IV SCH (03:00)
[2023-11-21] MEDS: ONDANSETRON INJ 2 MG/ML 2 ML VIAL IV STA (03:01)
--- NOTE | 2023-11-21 04:06 | CT Scan Report ---
Exam(s): CT ABDOMEN + PELVIS Without Contrast EXAM: CT Abdomen and Pelvis Without Intravenous Contrast CLINICAL HISTORY: Reason for exam: right side flank pain. No gallbladder. hx stones. TECHNIQUE: Axial computed tomography images of the abdomen and pelvis without intravenous contrast. Automated exposure control was utilized for the study. A dose lowering technique was utilized adhering to the principles of ALARA. COMPARISON: No relevant prior studies available. FINDINGS: Limitations: Limited evaluation in the absence of contrast. Lung bases: Unremarkable. No mass. No consolidation. ABDOMEN: Liver: Unremarkable. Gallbladder and bile ducts: Cholecystectomy changes with reservoir effect. No ductal dilation. Pancreas: Unremarkable. No ductal dilation. Spleen: Unremarkable. No splenomegaly. Adrenals: Unremarkable. No mass. Kidneys and ureters: Obstructive 8 x 5 x 7 mm calculus within the right ureteropelvic junction (not noted on head esthetician imaging) with upstream mild right renal hydronephrosis with perinephric and periureteral stranding. Stomach and bowel: No evidence of bowel obstruction. Colonic diverticulosis. No evidence of diverticulitis. PELVIS: Appendix: Normal appendix. Bladder: Unremarkable. No stones. Reproductive: IUD in situ. ABDOMEN and PELVIS: Intraperitoneal space: Unremarkable. No free air. No significant fluid collection. Bones/joints: Left total hip arthroplasty changes. Degenerative changes in the spine. No acute fracture. No dislocation. Soft tissues: Umbilical hernia containing fat. Vasculature: Unremarkable. No abdominal aortic aneurysm. Lymph nodes: Unremarkable. No enlarged lymph nodes. IMPRESSION: 1. Obstructive 8 x 5 x 7 mm calculus within the right ureteropelvic junction (not noted on head esthetician imaging) with upstream mild right renal hydronephrosis with perinephric and periureteral stranding. 2. No other acute findings. 3. Incidental findings as described. Communications: Verify Receipt Electronically signed by: Gavino Sloan MD 11/21/23 04:05 AM
[2023-11-21] MEDS: cefTRIAXone SODIUM 2,000 MG/50 ML BAG IV STA (04:34)
--- NOTE | 2023-11-21 04:41 | History & Physical Report ---
Date of Service November 21, 2023 Assessment & Plan Plan Pt is a 43 yo female with PMH of kidney stones, HTN, depression/anxiety, and remote hx of substance use presenting to the ER d/t right sided abdominal/flank pain. Right nephrolithiasis - CTAP showed [id number] stone at the right ureteropelvic junction with mild hydronephrosis - lab work significant for no leukocytosis - UA positive for nitrites, LE, blood, and 4+ bacteria; urine culture pending - HTN - continue History of Present Illness Chief Complaint: concern for kidney stone Primary Care Provider: Delano Roberts, IBRAHIMA, ASHVIN Pt is a 43 yo female with PMH of kidney stones, HTN, depression/anxiety, and remote hx of substance use presenting to the ER d/t right sided abdominal/flank pain. In the ER, pt received 2L NS, toradol 30 mg x1, zofran 4 mg x1, and ceftriaxone x1. Allergies Allergy/AdvReac Type Severity Reaction Status Date / Time sumatriptan Allergy Intermediate Red rash Verified 11/21/23 01:58 nickel Allergy Mild Rash Verified 11/21/23 01:58 Home Medications Medication Instructions Recorded Confirmed Type cetirizine 10 mg tablet (Zyrtec) 10 mg PO QAM 12/26/18 11/21/23 History ibuprofen 800 mg tablet 800 mg PO TID PRN pain #90 tabs 03/14/21 11/21/23 Rx ondansetron 4 mg disintegrating 4 mg PO Q8H PRN nausea and 11/01/21 11/21/23 Rx tablet vomiting #10 tabs rizatriptan 10 mg tablet 10 mg PO Q2H PRN Migraine Headache 01/19/22 11/21/23 Rx #10 tabs duloxetine 60 mg capsule,delayed 60 mg PO QAM #90 caps 11/27/22 11/21/23 Rx release metoprolol succinate 100 mg 100 mg PO HS #90 tabs 04/30/23 11/21/23 Rx tablet,extended release 24 hr lamotrigine 100 mg tablet 100 mg PO BID #60 tabs 07/31/23 11/21/23 Rx clonazepam 1 mg tablet 1 mg PO HS #30 tabs 09/17/23 11/21/23 Rx duloxetine 30 mg capsule,delayed 30 mg PO DAILY #90 caps 09/27/23 11/21/23 Rx release (Cymbalta) lisinopril 20 1 tab PO BID #180 tabs 10/08/23 11/21/23 Rx mg-hydrochlorothiazide 25 mg tablet Past Med/Surg History Medical History Nephrolithiasis 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 Kidney stones History of substance abuse IV "speed", heroin; no illicit substance 4+ yrs Morbid obesity with BMI of 50.0-59.9, adult Chronic back pain Depression Hypertension controlled, stable per pt Anxiety Migraine Surgical History S/P total left hip arthroplasty History of dilatation and curettage Hysteroscopy, colposcopy, IUD removal/replacement (10/10/21): L[facility]5 [facility] History of carpal tunnel release RIGHT History of colposcopy Hx of lithotripsy Left ESWL: 10/02/14: LMA#4 at [facility] (wt at time 79kg) History of tooth extraction History of laparoscopic cholecystectomy Family History Mother Thyroid disease Other No family history of adverse response to anesthesia Denies family history of Ovarian cancer Prostate cancer Myocardial infarction Breast cancer Colorectal cancer Social History Smoking Status: Never smoker Tobacco Type: Cigarettes Age Started Using Tobacco: 14; Age Quit Using Tobacco: 37; packs per day: 1; Second Hand Exposure: No; Do You Dip or Chew Tobacco: No; Hx Alcohol Use: Yes Alcohol type: beer Alcohol Intake Frequency: Monthly or Less Hx Substance Use: No Preferred Language: Russian Communication Ability: Effective Visual Impairment: No Limitations Hearing Ability: Normal 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 Beliefs That Will Affect Care: None marital status: Current Living Situation: Spouse and Family Current Living Situation Comment: , son and grandchild current occupational status: employed 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, 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 Safe at Home: Yes Childhood Exposure to Second-Hand Smoke: Yes Diet: regular Dental Care, Regularly: No Physical Activity Frequency: Does not Exercise Seatbelt Use: always Sunscreen Use: No Assistive Devices: Glasses Review of Systems Review of Systems: As per HPI Results & Data Results & Data Vital Signs (Past 12 Hours) Vital Signs Temp Pulse Resp BP Pulse Ox O2 Del Method 11/21/23 04:10 87 32 H 11/21/23 04:00 87 31 H 11/21/23 03:50 85 31 H 11/21/23 03:40 87 32 H 11/21/23 03:30 86 29 H 11/21/23 03:20 88 25 H 90 11/21/23 03:10 86 33 H 90 11/21/23 03:09 87 28 H 90 11/21/23 03:09 87 28 H 120/90 90 11/21/23 03:03 84 23 120/90 92 11/21/23 02:10 86 20 92 11/21/23 02:00 88 23 91 11/21/23 01:50 85 26 H 154/108 H 90 11/21/23 01:40 85 18 93 11/21/23 01:30 85 21 93 11/21/23 01:20 86 28 H 11/21/23 01:16 85 21 92 11/21/23 01:15 85 11/21/23 00:47 36.6 C 87 22 154/94 H 95 Room Air Resident Activity Tracking Resident Involvement: Resident Care Provided Care Provided: Adult Hospital Medicine
--- NOTE | 2023-11-21 04:46 | Urology Consultation ---
Date of Consultation November 21, 2023 Assessment & Plan (1) Nephrolithiasis: I discussed with the treating clinician in the emergency department the patient is being admitted on the hospitalist service. From a urologic perspective we recommend proceeding as follows: Provide analgesics Provide antiemetics Provide IV fluid for hydration while patient is n.p.o. Patient has had a urine culture sent which is pending. She has since been started on antibiotics in the form of Rocephin due to urinary tract infection noted on urinalysis. Antibiotic should be continued and can be tailored based on the results of pending culture. It is nowhere the mention that the patient did have a urinary tract infection on 09/07/2023 with a urine culture showing E. coli which was resistant to ampicillin and Bactrim (this organism was sensitive to Rocephin) Would recommend initiating Flomax for expulsive therapy Keep patient n.p.o. I suspect that due to the size of patient's kidney stone this would be unlikely to pass. She may require cystoscopy with ureteral stent placement. At the present time patient is nontoxic-appearing and is normotensive without tachycardia or fever. She also does not exhibit leukocytosis or acute kidney injury therefore an emergent urologic procedure is not indicated at this time She will be reevaluated by [facility] urology team and determination be made about possibility of performing cystoscopy as noted above Additional recommendations were forthcoming based on her clinical course as unfolds History of Present Illness Reason for Consultation: Nephrolithiasis History of Present Illness This is a 43-year-old female who presented the emergency department at [facility] secondary to right-sided flank pain. Patient notes that she has been having off and on right flank pain in a random fashion for the past week which has gotten progressively worse over the past 24 hours. She has had associated nausea and vomiting but denies any fevers, shakes, or chills. She denies any hematuria but does report some dysuria and urinary frequency. The patient does note that she has had prior kidney stones in the past. She says that she has been able to pass some of the kidney stones but she is also required cystoscopy with stent placement and lithotripsy in the past. Records were reviewed and patient's most recent urologic procedure was on 12/08/2021 where she required a cystoscopy with laser destruction of a kidney stone and insertion of a right ureteral stentthis was performed by Dr. Campbell of [facility]. The patient reports she has not had any solid oral intake since 11/20/2023 and only had some sips of water over the past 3 hours Since arrival to the hospital the patient has had labs and imaging which I independent reviewed. A CT scan of the abdomen pelvis showed obstructive 8 x 5 x 7 mm kidney stone within the right ureteropelvic junction resulting in right hydronephrosis. She was also noted to have perinephric and periureteral stranding. Labs included CBC were white blood cell count, hemoglobin, hematocrit, platelet count were normal. Chemistry profile showed sodium was 139 with a potassium of 3.1. BUN and creatinine are 26 and 1.0. There is no elevation of LFTs or lipase. Urinalysis was indicative of infectionshe had cloudy urine which was positive for nitrites, 2+ leukocyte Estrace, and pyuria with greater than 50 white blood cells per high-power field. She also had 4+ bacteria. test was negative. At the time my interview she was resting comfortably in bed and she was in no distress Allergies Allergy/AdvReac Type Severity Reaction Status Date / Time sumatriptan Allergy Intermediate Red rash Verified 11/21/23 01:58 nickel Allergy Mild Rash Verified 11/21/23 01:58 Home Medications Medication Instructions Recorded Confirmed Type cetirizine 10 mg tablet (Zyrtec) 10 mg PO QAM 12/26/18 11/21/23 History ibuprofen 800 mg tablet 800 mg PO TID PRN pain #90 tabs 03/14/21 11/21/23 Rx ondansetron 4 mg disintegrating 4 mg PO Q8H PRN nausea and 11/01/21 11/21/23 Rx tablet vomiting #10 tabs rizatriptan 10 mg tablet 10 mg PO Q2H PRN Migraine Headache 01/19/22 11/21/23 Rx #10 tabs duloxetine 60 mg capsule,delayed 60 mg PO QAM #90 caps 11/27/22 11/21/23 Rx release metoprolol succinate 100 mg 100 mg PO HS #90 tabs 04/30/23 11/21/23 Rx tablet,extended release 24 hr lamotrigine 100 mg tablet 100 mg PO BID #60 tabs 07/31/23 11/21/23 Rx clonazepam 1 mg tablet 1 mg PO HS #30 tabs 09/17/23 11/21/23 Rx duloxetine 30 mg capsule,delayed 30 mg PO DAILY #90 caps 09/27/23 11/21/23 Rx release (Cymbalta) lisinopril 20 1 tab PO BID #180 tabs 10/08/23 11/21/23 Rx mg-hydrochlorothiazide 25 mg tablet Patient History Medical History (Updated 11/21/23 @ 04:43 by Camilo Guillen PA-C) Nephrolithiasis 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 Kidney stones History of substance abuse IV "speed", heroin; no illicit substance 4+ yrs Morbid obesity with BMI of 50.0-59.9, adult Chronic back pain Depression Hypertension controlled, stable per pt Anxiety Migraine Surgical History S/P total left hip arthroplasty History of dilatation and curettage Hysteroscopy, colposcopy, IUD removal/replacement (10/10/21): LMA#5 at [facility] History of carpal tunnel release RIGHT History of colposcopy Hx of lithotripsy Left ESWL: 10/02/14: LMA#4 at [facility] [place] (wt at time 79kg) History of tooth extraction History of laparoscopic cholecystectomy Family History Mother Thyroid disease Other No family history of adverse response to anesthesia Denies family history of Ovarian cancer Prostate cancer Myocardial infarction Breast cancer Colorectal cancer Social History Smoking Status: Never smoker Tobacco Type: Cigarettes Age Started Using Tobacco: 14; Age Quit Using Tobacco: 37; packs per day: 1; Second Hand Exposure: No; Do You Dip or Chew Tobacco: No; Hx Alcohol Use: Yes Alcohol type: beer Alcohol Intake Frequency: Monthly or Less Hx Substance Use: No Preferred Language: Azeri Communication Ability: Effective Visual Impairment: No Limitations Hearing Ability: Normal 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 Beliefs That Will Affect Care: None marital status: Current Living Situation: Spouse and Family Current Living Situation Comment: , son and grandchild current occupational status: employed 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, 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 Safe at Home: Yes Childhood Exposure to Second-Hand Smoke: Yes Diet: regular Dental Care, Regularly: No Physical Activity Frequency: Does not Exercise Seatbelt Use: always Sunscreen Use: No Assistive Devices: Glasses Review of Systems Constitutional: no fever and no chills Ear, Nose, Mouth, Throat: no hearing loss Respiratory: no cough and no dyspnea Cardiovascular: no chest pain Gastrointestinal: + abdominal pain (Radiating from right f lank), + nausea and + vomiting Genitourinary: as per Subjective / HPI Musculoskeletal: + back pain (Right flank) Neurologic: no localized weakness Physical Exam Constitutional: WD/WN, vitals as above Eyes: no conjunctival abnormality ENMT: Ears: no hearing impairment and no external ear abnormality Neck: trachea midline Respiratory: normal respiratory effort; no respiratory distress and no labored breathing Cardiovascular: Rate/Rhythm: regular rate and regular rhythm Gastrointestinal (Abdomen): Abdomen is rotund but soft. There is no rebound tenderness or guarding, signs of peritonitis or rigidity. There is some slight pain with palpation in the right side of her abdomen Musculoskeletal: No calf tenderness Skin: no rashes Neurologic: moves all extremities Psychiatric: A+Ox3, euthymic affect Genitourinary: Slight CVA tenderness with percussion on the right side. No CVA tenderness with percussion on the left Results & Data Vital Signs (Past 12 Hours) Vital Signs Temp Pulse Resp BP Pulse Ox O2 Del Method 11/21/23 04:10 87 32 H 11/21/23 04:00 87 31 H 11/21/23 03:50 85 31 H 11/21/23 03:40 87 32 H 11/21/23 03:30 86 29 H 11/21/23 03:20 88 25 H 90 11/21/23 03:10 86 33 H 90 11/21/23 03:09 87 28 H 90 11/21/23 03:09 87 28 H 120/90 90 11/21/23 03:03 84 23 120/90 92 11/21/23 02:10 86 20 92 11/21/23 02:00 88 23 91 11/21/23 01:50 85 26 H 154/108 H 90 11/21/23 01:40 85 18 93 11/21/23 01:30 85 21 93 11/21/23 01:20 86 28 H 11/21/23 01:16 85 21 92 11/21/23 01:15 85 11/21/23 00:47 36.6 C 87 22 154/94 H 95 Room Air PG Care Time/CCT Total # of Minutes Spent Total Time Spent with Patient: Total time spent is greater than 50% in coordination of care (as documented) at patient's floor/unit and/or counseling patient: Coding Level of Care Code 51044 IN/OBS CONSULT LVL 5,80M Diagnoses Nephrolithiasis N20.0
[2023-11-21] MEDS: ACETAMINOPHEN 1,000 MG/100 ML VIAL IV STA (05:11)
[2023-11-21] MEDS: TAMSULOSIN HCL 0.4 MG CAP PO ONE (05:19)
[2023-11-21] MEDS ORDERED: HYDROmorphone INJ 0.5 MG/0.5 ML SYR IV PRN (05:32)
--- NOTE | 2023-11-21 06:10 | History & Physical Report ---
Date of Service November 21, 2023 Assessment & Plan (1) Obstruction of right ureteropelvic junction (UPJ) due to stone: (2) Hydronephrosis of right kidney: (3) Hypokalemia: (4) Migraine: (5) Anxiety: (6) Hypertension: (7) Depression: Plan Right UPJ stone 8 x 5 x 7 mm/mild right hydronephrosis- Follow urine culture sensitivity Empiric ceftriaxone 2 g IV daily Acetaminophen 1 g IV every 8 hours as needed for mild pain or fever Dilaudid 0.25 mg IV every 3 hours as needed for moderate pain Dilaudid 0.5 mg IV every 3 hours as needed for severe pain Zofran 4 mg IV every 6 hours as needed Pantoprazole 40 mg IV daily Add tamsulosin 0.4 mg daily if patient does not make it to intervention this morning Urology consulted Hypokalemia/mild dehydration- Potassium 3.1 Placed on NSS + KCl 20 mill equivalents at 100 mL/h Check magnesium level and replace as needed Hypertension- Blood pressure 117/91 with heart rate 82 Takes metoprolol succinate 100 mg at bedtime Hold lisinopril/HCTZ due to present hypokalemia and n.p.o. state Anxiety with depression/migraine- Temporarily hold clonazepam, duloxetine, lamotrigine and rizatriptan History of Present Illness Chief Complaint: The patient presents to the emergency department with symptoms of severe right flank pain persistent over the past 24 hours, accompanied by nausea and vomiting, similar to previous kidney stones Primary Care Provider: Delano Roberts III, ASHVIN The patient is a 43-year-old female with a past medical history including multiple kidney stones, migraine, anxiety, hypertension, depression, obesity, urinary incontinence, urinary tract infection, medical marijuana use and left STACEY. She presents to the emergency department with 24 hours of severe right flank pain, nausea and vomiting, similar to previous episodes of kidney stones. CT of the abdomen pelvis revealed an 8 x 5 x 7 mm right UPJ stone with mild right hydronephrosis. Allergies Allergy/AdvReac Type Severity Reaction Status Date / Time sumatriptan Allergy Intermediate Red rash Verified 11/21/23 01:58 nickel Allergy Mild Rash Verified 11/21/23 01:58 Home Medications Medication Instructions Recorded Confirmed Type cetirizine 10 mg tablet (Zyrtec) 10 mg PO QAM 12/26/18 11/21/23 History ibuprofen 800 mg tablet 800 mg PO TID PRN pain #90 tabs 03/14/21 11/21/23 Rx ondansetron 4 mg disintegrating 4 mg PO Q8H PRN nausea and 11/01/21 11/21/23 Rx tablet vomiting #10 tabs rizatriptan 10 mg tablet 10 mg PO Q2H PRN Migraine Headache 01/19/22 11/21/23 Rx #10 tabs duloxetine 60 mg capsule,delayed 60 mg PO QAM #90 caps 11/27/22 11/21/23 Rx release metoprolol succinate 100 mg 100 mg PO HS #90 tabs 04/30/23 11/21/23 Rx tablet,extended release 24 hr lamotrigine 100 mg tablet 100 mg PO BID #60 tabs 07/31/23 11/21/23 Rx clonazepam 1 mg tablet 1 mg PO HS #30 tabs 09/17/23 11/21/23 Rx duloxetine 30 mg capsule,delayed 30 mg PO DAILY #90 caps 09/27/23 11/21/23 Rx release (Cymbalta) lisinopril 20 1 tab PO BID #180 tabs 10/08/23 11/21/23 Rx mg-hydrochlorothiazide 25 mg tablet Past Med/Surg History Medical History (Updated 11/21/23 @ 06:14 by Miguel Howard MD) Nephrolithiasis 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 Kidney stones History of substance abuse IV "speed", heroin; no illicit substance 4+ yrs Morbid obesity with BMI of 50.0-59.9, adult Chronic back pain Depression Hypertension controlled, stable per pt Anxiety Migraine Surgical History S/P total left hip arthroplasty History of dilatation and curettage Hysteroscopy, colposcopy, IUD removal/replacement (10/10/21): LMA#5 at [facility] History of carpal tunnel release RIGHT History of colposcopy Hx of lithotripsy Left ESWL: 10/02/14: LMA#4 at [facility] [place] (wt at time 79kg) History of tooth extraction History of laparoscopic cholecystectomy Family History Mother Thyroid disease Other No family history of adverse response to anesthesia Denies family history of Ovarian cancer Prostate cancer Myocardial infarction Breast cancer Colorectal cancer Social History Smoking Status: Never smoker Tobacco Type: Cigarettes Age Started Using Tobacco: 14; Age Quit Using Tobacco: 37; packs per day: 1; Second Hand Exposure: No; Do You Dip or Chew Tobacco: No; Hx Alcohol Use: Yes Alcohol type: beer Alcohol Intake Frequency: Monthly or Less Hx Substance Use: No Preferred Language: Tristanian Communication Ability: Effective Visual Impairment: No Limitations Hearing Ability: Normal Brick Catcher Required: No Beliefs That Will Affect Care: None marital status: Current Living Situation: Spouse and Family Current Living Situation Comment: , son and grandchild current occupational status: employed 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, 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 Safe at Home: Yes Childhood Exposure to Second-Hand Smoke: Yes Diet: regular Dental Care, Regularly: No Physical Activity Frequency: Does not Exercise Seatbelt Use: always Sunscreen Use: No Assistive Devices: Glasses Review of Systems Review of Systems: The patient denies chest pain, palpitations, shortness of breath, dyspnea on exertion, cough, lower extremity swelling, sore throat, fevers, chills, sweats, diarrhea , constipation, blood in urine or stool, lightheadedness, dizziness, headache, memory loss, loss of consciousness, rash, abnormal bruising or bleeding, imbalance, focal or generalized weakness, numbness or tingling in arms or legs, generalized arthralgias or myalgias, neck pain, or night sweats. The review of systems is otherwise negative other than for that already noted above, and at least 10 systems have been reviewed. Physical Exam Physical Exam: The patient is awake, alert and oriented 3, well developed and well nourished, normocephalic and atraumatic, lying in bed and in no acute distress. HEENT--PERRL, EOMI, mucous membranes and oropharynx mildly dry. Neck--supple. No JVD. No bruits. Thyroid normal, trachea midline, no adenopathy. Heart--normal S1 and S2. No murmurs, rubs or gallops. Lungs--clear bilaterally, no respiratory distress, no accessory muscle use. Abdomen--normal bowel sounds and soft. Nontender. Nondistended, no hernias or masses, no organomegaly. Extremities--No edema. Dermatologic--normal skin turgor, normal color, no abnormal lymph nodes, no rash. Neurologic--cranial nerves II through XII grossly intact. Rheumatologic--normal range of motion. Psychiatric--normal affect. Results & Data Results & Data Vital Signs (Past 12 Hours) Vital Signs Temp Pulse Resp BP Pulse Ox O2 Del Method 11/21/23 05:16 82 11/21/23 04:50 83 24 11/21/23 04:44 80 20 117/91 96 Room Air 11/21/23 04:44 80 20 11/21/23 04:40 80 25 H 11/21/23 04:38 80 19 11/21/23 04:10 87 32 H 11/21/23 04:00 87 31 H 11/21/23 03:50 85 31 H 11/21/23 03:40 87 32 H 11/21/23 03:30 86 29 H 11/21/23 03:20 88 25 H 90 11/21/23 03:10 86 33 H 90 11/21/23 03:09 87 28 H 90 11/21/23 03:09 87 28 H 120/90 90 11/21/23 03:03 84 23 120/90 92 11/21/23 02:10 86 20 92 11/21/23 02:00 88 23 91 11/21/23 01:50 85 26 H 154/108 H 90 11/21/23 01:40 85 18 93 11/21/23 01:30 85 21 93 11/21/23 01:20 86 28 H 11/21/23 01:16 85 21 92 11/21/23 01:15 85 11/21/23 00:47 36.6 C 87 22 154/94 H 95 Room Air Laboratory Results Laboratory Results WBC 8.19 K/ul (4.8-10.8) 11/21/23 01:05 RBC 4.40 M/uL (4.20-5.40) 11/21/23 01:05 Hgb 13.9 g/dl (12.0-16.0) 11/21/23 01:05 Hct 41.0 % (37.0-47.0) 11/21/23 01:05 MCV 93.2 fL (80.0-100.0) 11/21/23 01:05 MCH 31.6 pg (25.0-34.0) 11/21/23 01:05 MCHC 33.9 g/dL (32.0-36.0) 11/21/23 01:05 RDW Std Deviation 43.3 fL (36.4-46.3) 11/21/23 01:05 RDW Coeff of Jonh 12.7 % (11.5-14.5) 11/21/23 01:05 Plt Count 216 K/uL (130-400) 11/21/23 01:05 MPV 10.5 fL (9.4-12.4) 11/21/23 01:05 Immature Gran % (Auto) 0.4 % 11/21/23 01:05 Neut % (Auto) 82.3 % 11/21/23 01:05 Lymph % (Auto) 12.7 % 11/21/23 01:05 [place] % (Auto) 3.8 % 11/21/23 01:05 Eos % (Auto) 0.2 % 11/21/23 01:05 Baso % (Auto) 0.6 % 11/21/23 01:05 Neut # (Auto) 6.74 K/uL (1.40-6.50) H 11/21/23 01:05 Lymph # (Auto) 1.04 K/uL (1.20-3.40) L 11/21/23 01:05 [place] # (Auto) 0.31 K/uL (0.11-0.59) 11/21/23 01:05 Eos # (Auto) 0.02 K/uL (0.00-0.50) 11/21/23 01:05 Baso # (Auto) 0.05 K/uL (0.00-0.20) 11/21/23 01:05 Immature Gran # (Auto) 0.03 K/uL (0.01-0.20) 11/21/23 01:05 Sodium 139 mmol/L (136-145) 11/21/23 01:05 Potassium 3.1 mmol/L (3.5-5.1) L 11/21/23 01:05 Chloride 99 mmol/L (98-107) 11/21/23 01:05 Carbon Dioxide 29 mmol/L (21-32) 11/21/23 01:05 Anion Gap 11 (3-11) 11/21/23 01:05 BUN 26 mg/dl (6-23) H 11/21/23 01:05 Creatinine 1.06 mg/dl (0.6-1.2) 11/21/23 01:05 Est Cr Clr Drug Dosing 96.5 ml/min 11/21/23 01:05 Est GFR ( Amer) 73.4 ml/min 11/21/23 01:05 Est GFR (Non-Af Amer) 63.4 ml/min 11/21/23 01:05 BUN/Creatinine Ratio 24.5 (10-20) H 11/21/23 01:05 Glucose 126 mg/dl (70-99(Fasting)) H 11/21/23 01:05 Calcium 9.7 mg/dl (8.6-10.3) 11/21/23 01:05 Total Bilirubin 0.4 mg/dl (0.2-1.0) 11/21/23 01:05 AST 13 U/L (13-39) 11/21/23 01:05 ALT 14 U/L (7-52) 11/21/23 01:05 Alkaline Phosphatase 52 U/L (34-104) 11/21/23 01:05 Total Protein 7.3 gm/dl (6.0-8.3) 11/21/23 01:05 Albumin 4.0 gm/dl (3.4-5.0) 11/21/23 01:05 Globulin 3.3 gm/dl (2.5-4.0) 11/21/23 01:05 Albumin/Globulin Ratio 1.2 (0.9-2) 11/21/23 01:05 Lipase 8 U/L (11-82) L 11/21/23 01:05 Urine Color Yellow 11/21/23 02:26 Urine Appearance Cloudy (Clear) A 11/21/23 02:26 Urine pH 7.5 (4.5-7.5) 11/21/23 02:26 POC Urine pH 6 (4.5-7.5) 11/21/23 02:26 Ur Specific [place] 1.024 (1.000-1.030) 11/21/23 02:26 Urine Protein Trace (Negative) H 11/21/23 02:26 POC Urine Protein Trace (Negative) H 11/21/23 02:26 Urine Glucose (UA) Negative (Negative) 11/21/23 02:26 POC Ur Glucose (UA) Normal (Normal) 11/21/23 02:26 Urine Ketones Trace (Negative) H 11/21/23 02:26 POC Urine Ketones Negative (Negative) 11/21/23 02:26 Urine Blood 1+ (Negative) H 11/21/23 02:26 POC Urine Blood 50 (Negative) H 11/21/23 02:26 Urine Nitrite Positive (Negative) A 11/21/23 02:26 POC Urine Nitrite Positive (Negative) A 11/21/23 02:26 Urine Bilirubin Negative (Negative) 11/21/23 02:26 POC Urine Bilirubin Negative (Negative) 11/21/23 02:26 Urine Urobilinogen Negative (Negative) 11/21/23 02:26 Ur Leukocyte Esterase 2+ (Negative) H 11/21/23 02:26 POC U Leukocyte Esteras 1+ (Negative) H 11/21/23 02:26 Urine WBC (Auto) >50 /hpf (0-5) H 11/21/23 02:26 Urine RBC (Auto) 0-2 /hpf (0-2) 11/21/23 02:26 U Hyaline Cast (Auto) 0-2 /lpf (0-2) 11/21/23 02:26 U Epithel Cells (Auto) 0-2 /hpf (0-2) 11/21/23 02:26 Urine Bacteria (Auto) 4+ (None Seen) H 11/21/23 02:26 POC Ur Test NEG (NEG) 11/21/23 02:26 Impressions Abdomen/Pelvis CT 11/21/23 02:20 CR Exam(s): CT ABDOMEN + PELVIS Without Contrast EXAM: CT Abdomen and Pelvis Without Intravenous Contrast CLINICAL HISTORY: Reason for exam: right side flank pain. No gallbladder. hx stones. TECHNIQUE: Axial computed tomography images of the abdomen and pelvis without intravenous contrast. Automated exposure control was utilized for the study. A dose lowering technique was utilized adhering to the principles of ALARA. COMPARISON: No relevant prior studies available. FINDINGS: Limitations: Limited evaluation in the absence of contrast. Lung bases: Unremarkable. No mass. No consolidation. ABDOMEN: Liver: Unremarkable. Gallbladder and bile ducts: Cholecystectomy changes with reservoir effect. No ductal dilation. Pancreas: Unremarkable. No ductal dilation. Spleen: Unremarkable. No splenomegaly. Adrenals: Unremarkable. No mass. Kidneys and ureters: Obstructive 8 x 5 x 7 mm calculus within the right ureteropelvic junction (not noted on paper machine back tender imaging) with upstream mild right renal hydronephrosis with perinephric and periureteral stranding. Stomach and bowel: No evidence of bowel obstruction. Colonic diverticulosis. No evidence of diverticulitis. PELVIS: Appendix: Normal appendix. Bladder: Unremarkable. No stones. Reproductive: IUD in situ. ABDOMEN and PELVIS: Intraperitoneal space: Unremarkable. No free air. No significant fluid collection. Bones/joints: Left total hip arthroplasty changes. Degenerative changes in the spine. No acute fracture. No dislocation. Soft tissues: Umbilical hernia containing fat. Vasculature: Unremarkable. No abdominal aortic aneurysm. Lymph nodes: Unremarkable. No enlarged lymph nodes. IMPRESSION: 1. Obstructive 8 x 5 x 7 mm calculus within the right ureteropelvic junction (not noted on paper machine back tender imaging) with upstream mild right renal hydronephrosis with perinephric and periureteral stranding. 2. No other acute findings. 3. Incidental findings as described. Communications: Verify Receipt Electronically signed by: Gavino Sloan MD 11/21/23 04:05 AM Code Status & VTE Plan Code Status Full code VTE Prophylaxis Plan VTE Prophylaxis will be ordered: Yes PG Care Time/CCT Total # of Minutes Spent Total Time Spent with Patient: Total time spent is greater than 50% in coordination of care (as documented) at patient's floor/unit and/or counseling patient: Coding Level of Care Code 25046 INT INP/OBS CARE 3/75MIN Diagnoses Obstruction of right ureteropelvic junction (UPJ) due to stone N20.1 Hydronephrosis of right kidney N13.30 Hypokalemia E87.6 Migraine without status migrainosus, not intractable, unspecified migraine type G43.909 Migraine type: unspecified Status migrainosus presence: without status migrainosus Intractability: not intractable Anxiety F41.9 Primary hypertension I10 Hypertension type: primary hypertension Persistent depressive disorder F34.1 Depression Type: persistent depressive disorder (4) Migraine Migraine type: unspecified Status migrainosus presence: without status migrainosus Intractability: not intractable Qualified Code(s): G43.909 - Migraine, unspecified, not intractable, without status migrainosus (6) Hypertension Hypertension type: primary hypertension Qualified Code(s): I10 - Essential (primary) hypertension (7) Depression Depression Type: persistent depressive disorder Qualified Code(s): F34.1 - Dysthymic disorder
[2023-11-21 06:31] LABS: Magnesium 1.8 mg/dl (1.7-2.4)
[2023-11-21] MEDS: NSS + 20MEQ KCL 20 MEQ/1,000 ML BAG IV SCH (06:43)
--- NOTE | 2023-11-21 08:07 | Urology Progress Note ---
<Statement entered by Julio C Chiang MD - 11/21/23 10:29> I have discussed Ms. Brewer's case with ASHVIN Nelson and agree with the above documentation. CT scan demonstrates a right proximal ureteral stone. Urinalysis suspicious for infection. Will plan to proceed with cystoscopy, right retrograde pyelogram and right ureteral stent placement to decompress the kidney. -Julio C Chiang MD. Date of Service November 21, 2023 Assessment & Plan (1) Hydronephrosis of right kidney: (2) Obstruction of right ureteropelvic junction (UPJ) due to stone: (3) Urinary tract infection: Plan 43yo/F admitted with an obstructing 8mm R UPJ stone and concern for infection - Pt is currently normotensive without tachycardia or fever. - Labs today reviewed - No leukocytosis and normal renal function. - UA indicative of infection, culture pending. Received Ceftriaxone in ED. - Given her obstructing stone and concern for infection, recommend right ureteral stent placement - she is agreeable. Ureteral stents were discussed as well as postoperative issues and pain management. She is aware a second procedure will be needed for stone treatment. All questions were answered. - Plan for OR today for cystoscopy, right retrograde pyelogram, right ureteral stent placement with . OR notified. - Risks and benefits to be reviewed with patient by Dr. Chiang. - Keep NPO. - Continue antibiotics, prn analgesics, prn antiemetics. - Urology will follow. Subjective Pt examined at bedside in the ED. Awake, resting in bed on arrival. No acute distress. Denies fever or chills. Some nausea/vomiting this morning, has been managing with prn zofran. Still with right sided pain, managing with prn pain medication. Has been NPO. Voiding without issue. No hematuria. Reports some dysuria. Review of Systems Constitutional: as per Subjective / HPI Genitourinary: as per Subjective / HPI Physical Exam Constitutional: no acute distress Respiratory: no respiratory distress and no labored breathing Neurologic: awake Psychiatric: Orientation: alert and oriented x 3 Results & Data Vital Signs (Past 12 Hours) Vital Signs Temp Pulse Resp BP Pulse Ox O2 Del Method 11/21/23 06:00 77 30 H 11/21/23 06:00 77 30 H 136/92 11/21/23 05:50 83 25 H 11/21/23 05:40 77 28 H 11/21/23 05:30 82 26 H 11/21/23 05:30 82 26 H 113/88 91 Room Air 11/21/23 05:20 81 27 H 11/21/23 05:16 82 11/21/23 05:10 79 27 H 11/21/23 05:00 81 23 11/21/23 04:50 83 24 11/21/23 04:44 80 20 117/91 96 Room Air 11/21/23 04:44 80 20 11/21/23 04:40 80 25 H 11/21/23 04:38 80 19 11/21/23 04:10 87 32 H 11/21/23 04:00 87 31 H 11/21/23 03:50 85 31 H 11/21/23 03:40 87 32 H 11/21/23 03:30 86 29 H 11/21/23 03:20 88 25 H 90 11/21/23 03:10 86 33 H 90 11/21/23 03:09 87 28 H 90 11/21/23 03:09 87 28 H 120/90 90 11/21/23 03:03 84 23 120/90 92 11/21/23 02:10 86 20 92 11/21/23 02:00 88 23 91 11/21/23 01:50 85 26 H 154/108 H 90 11/21/23 01:40 85 18 93 11/21/23 01:30 85 21 93 11/21/23 01:20 86 28 H 11/21/23 01:16 85 21 92 11/21/23 01:15 85 11/21/23 00:47 36.6 C 87 22 154/94 H 95 Room Air PG Care Time/CCT Total # of Minutes Spent Total Time Spent with Patient: Total time spent is greater than 50% in coordination of care (as documented) at patient's floor/unit and/or counseling patient: Coding Level of Care Code None Diagnoses Hydronephrosis of right kidney N13.30 Obstruction of right ureteropelvic junction (UPJ) due to stone N20.1 Acute cystitis without hematuria N39.0
[2023-11-21] MEDS: ONDANSETRON INJ 2 MG/ML 2 ML VIAL ONE (09:22)
[2023-11-21] MEDS: HYDROmorphone INJ 0.5 MG/0.5 ML SYR IV PRN (09:22)
--- NOTE | 2023-11-21 09:57 | Hospitalist Progress Note ---
Date of Service November 21, 2023 Assessment & Plan (1) Obstruction of right ureteropelvic junction (UPJ) due to stone: Plan: Right UPJ stone 8 x 5 x 7 mm/mild right hydronephrosis - Urine culture pending - Continue Ceftriaxone, first day 11/20 Urology consulted - plan for OR today for stent placement - Add tamsulosin 0.4 mg daily if patient does not make it to intervention this morning AM CBC, BMP PTH (2) Hypokalemia: Plan: 3.1 on admission, Mag 1.8 Was receiving K in her fluids recheck AM (3) Hypertension: Plan: Continue Metoprolol Hold lisinopril/HCTZ - reeval in AM (4) Depression: Plan: with anxiety Resume clonazepam, duloxetine, and lamotrigine post op Plan dispo: continued inpatient stay dvt proh: low risk family updated at bedisde Discussed with Urology ELVIE, Alejandra Selby Subjective Patient resting in bed, did vomit this morning. Denies fever or chills. Still with pain. hx of kidney stones - has needed surgery in the past, has not followed with urology or had a workup on why she gets stones Tele - SR 80s Review of Systems Review of Systems: All systems reviewed & are unremarkable except as noted in Subjective Physical Exam Physical Exam: General: NAD, lying in bed, VS as above Resp: normal respiratory effort, lungs clear to auscultation CV: RRR, no murmur, Abd: normal bowel sounds, non tender, no hepatosplenomegaly Back: + right CVA tenderness Extremities: Moves all extremities, no edema Neuro: A&O x3, Results & Data Results & Data Vital Signs (Past 12 Hours) Vital Signs Temp Pulse Resp BP Pulse Ox O2 Del Method 11/21/23 09:21 87 11/21/23 07:30 84 25 H 122/84 94 Room Air 11/21/23 06:00 77 30 H 11/21/23 06:00 77 30 H 136/92 11/21/23 05:50 83 25 H 11/21/23 05:40 77 28 H 11/21/23 05:30 82 26 H 11/21/23 05:30 82 26 H 113/88 91 Room Air 11/21/23 05:20 81 27 H 11/21/23 05:16 82 11/21/23 05:10 79 27 H 11/21/23 05:00 81 23 11/21/23 04:50 83 24 11/21/23 04:44 80 20 117/91 96 Room Air 11/21/23 04:44 80 20 11/21/23 04:40 80 25 H 11/21/23 04:38 80 19 11/21/23 04:10 87 32 H 11/21/23 04:00 87 31 H 11/21/23 03:50 85 31 H 11/21/23 03:40 87 32 H 11/21/23 03:30 86 29 H 11/21/23 03:20 88 25 H 90 11/21/23 03:10 86 33 H 90 11/21/23 03:09 87 28 H 90 11/21/23 03:09 87 28 H 120/90 90 11/21/23 03:03 84 23 120/90 92 11/21/23 02:10 86 20 92 11/21/23 02:00 88 23 91 11/21/23 01:50 85 26 H 154/108 H 90 11/21/23 01:40 85 18 93 11/21/23 01:30 85 21 93 11/21/23 01:20 86 28 H 11/21/23 01:16 85 21 92 11/21/23 01:15 85 11/21/23 00:47 36.6 C 87 22 154/94 H 95 Room Air Laboratory Results CBC and chemsitry reviewed PG Care Time/CCT Total # of Minutes Spent Total Time Spent with Patient: Total time spent is greater than 50% in coordination of care (as documented) at patient's floor/unit and/or counseling patient: Coding Level of Care Code None Diagnoses Obstruction of right ureteropelvic junction (UPJ) due to stone N20.1 Hypokalemia E87.6 Primary hypertension I10 Hypertension type: primary hypertension Persistent depressive disorder F34.1 Depression Type: persistent depressive disorder (3) Hypertension Hypertension type: primary hypertension Qualified Code(s): I10 - Essential (primary) hypertension (4) Depression Depression Type: persistent depressive disorder Qualified Code(s): F34.1 - Dysthymic disorder
--- NOTE | 2023-11-21 10:19 | Anesthesiology Consultation ---
Date of Service November 21, 2023 Assessment & Plan (1) Encounter for pre-operative examination: Chart Review Chart Review: Acceptable Risk for Surgery and Patient NOT seen in Pre Admission Testing Consults Requested none History Surgery Operation Date: 11/21/23 14:00 Proposed Procedures p Cystoscopy, Right Retrograde Pyelogram, Right Stent Placement - Julio C Chiang MD Height/Weight Height: 5 ft 5 in Weight: 142.4 kg Allergies Allergy/AdvReac Type Severity Reaction Status Date / Time sumatriptan Allergy Intermediate Red rash Verified 11/21/23 01:58 nickel Allergy Mild Rash Verified 11/21/23 01:58 Medications Home Medications Medication Instructions Recorded Confirmed Last Taken cetirizine 10 mg tablet (Zyrtec) 10 mg PO QAM 12/26/18 11/21/23 11/20/23 ibuprofen 800 mg tablet 800 mg PO TID PRN pain #90 tabs 03/14/21 11/21/23 06/25/22 ondansetron 4 mg disintegrating 4 mg PO Q8H PRN nausea and 11/01/21 11/21/23 Unknown tablet vomiting #10 tabs rizatriptan 10 mg tablet 10 mg PO Q2H PRN Migraine Headache 01/19/22 11/21/23 Unknown #10 tabs duloxetine 60 mg capsule,delayed 60 mg PO QAM #90 caps 11/27/22 11/21/23 11/20/23 release metoprolol succinate 100 mg 100 mg PO HS #90 tabs 04/30/23 11/21/23 11/20/23 tablet,extended release 24 hr lamotrigine 100 mg tablet 100 mg PO BID #60 tabs 07/31/23 11/21/23 11/20/23 clonazepam 1 mg tablet 1 mg PO HS #30 tabs 09/17/23 11/21/23 11/20/23 duloxetine 30 mg capsule,delayed 30 mg PO DAILY #90 caps 09/27/23 11/21/23 11/20/23 release (Cymbalta) lisinopril 20 1 tab PO BID #180 tabs 10/08/23 11/21/23 11/20/23 mg-hydrochlorothiazide 25 mg tablet Active Medications Generic Name Dose Route Start Last Admin Trade Name Freq PRN Reason Stop Dose Admin Hydromorphone HCl 0.5 mg 11/21/23 05:32 11/21/23 09:22 Hydromorphone Inj 0.5 Mg/0.5 Ml Syr IV 12/05/23 05:31 0.5 mg Q3H PRN Administration Severe Pain (Scale 7, 8, 9,10) Potassium Chloride/Sodium Chloride 20 meq in 1,000 mls @ 100 mls/hr 11/21/23 06:00 11/21/23 06:43 Normal Saline W/20 Meq Kcl IV 12/21/23 05:59 100 mls/hr .Q10H [facility] Administration Protocol Past Medical History Medical History Nephrolithiasis 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 Kidney stones History of substance abuse IV "speed", heroin; no illicit substance 4+ yrs Morbid obesity with BMI of 50.0-59.9, adult Chronic back pain Depression Hypertension controlled, stable per pt Anxiety Migraine Past Family History Family History Mother Thyroid disease Other No family history of adverse response to anesthesia Denies family history of Ovarian cancer Prostate cancer Myocardial infarction Breast cancer Colorectal cancer Past Surgical History Surgical History S/P total left hip arthroplasty History of dilatation and curettage Hysteroscopy, colposcopy, IUD removal/replacement (10/10/21): LMA#[address] [facility] History of carpal tunnel release RIGHT History of colposcopy Hx of lithotripsy Left ESWL: 10/02/14: LMA#4 at [facility] (wt at time 79kg) History of tooth extraction History of laparoscopic cholecystectomy Social History Smoking Status: Never smoker tobacco type: cigarettes Do You Dip or Chew Tobacco: No Hx Alcohol Use: Yes Alcohol type: beer alcohol intake frequency: holidays/special occasions only Hx Substance Use: No substance use type: does not use Last Used Substance Other:: over 4 years ago per pt since used any of these Physical Exam Vital Signs Last Vital Signs Temp 36.6 C 11/21/23 00:47 Pulse 87 11/21/23 09:21 Resp 25 H 11/21/23 07:30 BP 122/84 11/21/23 07:30 Pulse Ox 94 11/21/23 07:30 O2 Del Method Room Air 11/21/23 07:30 Testing Laboratory Results 11/21/23 01:05 11/21/23 01:05 Urine Color Yellow 11/21/23 02:26 Urine Appearance Cloudy (Clear) A 11/21/23 02:26 Urine pH 7.5 (4.5-7.5) 11/21/23 02:26 Ur Specific [place] 1.024 (1.000-1.030) 11/21/23 02:26 Urine Protein Trace (Negative) H 11/21/23 02:26 Urine Glucose (UA) Negative (Negative) 11/21/23 02:26 Urine Ketones Trace (Negative) H 11/21/23 02:26 Urine Nitrite Positive (Negative) A 11/21/23 02:26 Ur Leukocyte Esterase 2+ (Negative) H 11/21/23 02:26 Urine WBC (Auto) >50 /hpf (0-5) H 11/21/23 02:26 Urine RBC (Auto) 0-2 /hpf (0-2) 11/21/23 02:26 U Hyaline Cast (Auto) 0-2 /lpf (0-2) 11/21/23 02:26 U Epithel Cells (Auto) 0-2 /hpf (0-2) 11/21/23 02:26 Urine Bacteria (Auto) 4+ (None Seen) H 11/21/23 02:26 11/21/23 02:26 POC Ur Test NEG Electrocardiogram Date: 09/19/22 DICTATED BY: Wili Quiroz MD Test Reason : Blood Pressure : / mmHG Vent. Rate : 088 BPM Atrial Rate : 088 BPM P-R Int : 158 ms QRS Dur : 094 ms QT Int : 360 ms P-R-T Axes : 050 045 -12 degrees QTc Int : 435 ms Normal sinus rhythm Abnormal ECG When compared with ECG of 13-SEP-2021 15:16, No significant change was found Confirmed by Wili Quiroz ([id number]) on 09/20/2022 5:12:55 AM
[2023-11-21] MEDS: LACTATED RINGER'S 1,000 ML IV SCH (11:25)
[2023-11-21] MEDS ORDERED: HYDROmorphone INJ 1 MG/ML SYRINGE IV PRN (11:38)
[2023-11-21] MEDS ORDERED: ATROPINE SULFATE 0.1 MG/ML 10ML SYR IV PRN (11:38)
[2023-11-21] MEDS ORDERED: ONDANSETRON INJ 2 MG/ML 2 ML VIAL IV PRN (11:38)
[2023-11-21] MEDS ORDERED: ePHEDrine sulfate 50 MG/ML AMP IV PRN (11:38)
[2023-11-21] MEDS ORDERED: fentaNYL citrate PF 100 MCG/2 ML VIAL IV PRN (11:38)
[2023-11-21] MEDS ORDERED: MIDAZOLAM HCL 1 MG/ML 2ML VIAL ONE (11:41)
[2023-11-21] MEDS ORDERED: PROPOFOL IV EMULSION 10 MG/ML 20 ML VIAL IV ONE ×2 (11:41→12:13)
[2023-11-21] MEDS ORDERED: LIDOCAINE 2% 2 ML VIAL/AMP(20MG/ML) INFIL ONE (11:41)
[2023-11-21] MEDS ORDERED: fentaNYL citrate PF 100 MCG/2 ML VIAL ONE (11:41)
[2023-11-21] MEDS ORDERED: KETAMINE HCL INJ 50 MG/ML 10 ML VIAL ONE (11:44)
[2023-11-21] MEDS: DIATRIZOATE MEGLUMINE 30% 100ML VIAL INSTIL ONE (12:12)
--- NOTE | 2023-11-21 12:16 | Operative Report ---
PG Post Operative Report Pre & Post Diagnosis Operation Date: 11/21/23 14:00 Pre-Op Diagnosis: Hydronephrosis of right kidney, Obstruction of right ureteropelvic junction (UPJ) due to stone Post-Op Diagnosis: Hydronephrosis of right kidney, Obstruction of right ureteropelvic junction (UPJ) due to stone I identified the patient and participated in the time-out.: Yes Procedure Operation Date: 11/21/23 14:00 Actual Procedures p Cystoscopy, Right Retrograde Pyelogram, Right Stent Placement(Right) - Julio C Chiang MD Surgeon Julio C Chiang MD Supervisor Plastic Sheets None Estimated Blood Loss 0 Findings Consistent with Post-Op Diagnosis Specimens None Drains 6 Cypriot by 24 cm double-J ureteral stent in the right ureter Anesthesia Type MAC Complications none Disposition Accompanied Patient To Recovery: Yes Disposition: Recovery Room Indications This is a 43-year-old female who presented to the emergency department on 11/21/2023 where she was found to have a right ureteral stone and signs of UTI. She was being brought to the OR for right ureteral stent placement. Description of Procedure The patient was identified in the holding area and informed consent was confirmed. She was marked on the right side, then was taken to the operating room where anesthesia was initiated. She was placed in the dorsal lithotomy position with all pressure points appropriately padded. She was prepped and draped in the usual sterile fashion and a preoperative timeout was performed. A well-lubricated cystoscope was inserted per urethra and panendoscopy was performed. The urethra was normal in appearance. The bladder was of normal size with ureteral orifices in orthotopic position. The right ureteral orifice was identified and cannulated with a 5 Cypriot open- ended catheter. A retrograde pyelogram was performed demonstrating the ureter was somewhat medial. There was a shadow suspicious for the proximal ureteral stone. A 0.038" ZIPwire was advanced to the level of the kidney under fluoroscopic guidance. Over the wire, a 6 Cypriot x 24 centimeter double-J ureteral stent was advanced. When the wire was removed, the proximal curl was visualized in the kidney with x-ray, and the distal curl visualized in the bladder with the cystoscope. There was drainage of cloudy urine through the stent. At this point the bladder was drained and all instrumentation was removed. The patient was then awakened from anesthesia and was brought to the PACU in stable condition. I attest to the content of the Intraoperative Record and any orders documented therein. Any exceptions are noted below.
--- NOTE | 2023-11-21 12:28 | Fluoroscopy Report ---
FL retrograde includes kub CLINICAL HISTORY: RIGHT STENT COMPARISON STUDY: CT of the abdomen and pelvis performed earlier today. FLUOROSCOPY TIME: 10 seconds. Ka, r: 8.86 mGy FLUOROSCOPIC IMAGES: 2 FINDINGS: Fluoroscopy was provided during right retrograde pyelogram with right ureteral stent placem ent. The proximal aspect of the stent projects over the right collecting system. IMPRESSION: Fluoroscopy provided during right retrograde pyelogram and right ureteral stent placemen t. ACT 112: Negative or not required by law. Electronically signed by: Kenroy Rasheed M.D. 11/21/2023 12:27 PM
--- NOTE | 2023-11-21 12:46 | Anesthesiology Progress Note ---
Date of Service November 21, 2023 Anesthesia Post Procedure Vital Signs Vital Signs: Temp Pulse Pulse Pulse Resp BP BP 11/21/23 12:30 94 H 20 106/78 11/21/23 12:22 36.4 C L 103 H 24 109/81 11/21/23 11:09 37 C 88 93 H 135/108 H 11/21/23 10:00 83 24 140/96 11/21/23 09:30 87 15 133/86 11/21/23 09:21 87 11/21/23 09:00 90 30 H 128/72 11/21/23 08:30 87 20 157/124 H 11/21/23 08:00 85 24 164/108 H 11/21/23 07:30 84 25 H 122/84 11/21/23 06:00 77 30 H 11/21/23 06:00 77 30 H 136/92 11/21/23 05:50 83 25 H 11/21/23 05:40 77 28 H 11/21/23 05:30 82 26 H 11/21/23 05:30 82 26 H 113/88 11/21/23 05:20 81 27 H 11/21/23 05:16 82 11/21/23 05:10 79 27 H 11/21/23 05:00 81 23 11/21/23 04:50 83 24 11/21/23 04:44 80 20 117/91 11/21/23 04:44 80 20 11/21/23 04:40 80 25 H 11/21/23 04:38 80 19 11/21/23 04:10 87 32 H 11/21/23 04:00 87 31 H 11/21/23 03:50 85 31 H 11/21/23 03:40 87 32 H 11/21/23 03:30 86 29 H 11/21/23 03:20 88 25 H 11/21/23 03:10 86 33 H 11/21/23 03:09 87 28 H 11/21/23 03:09 87 28 H 120/90 11/21/23 03:03 84 23 120/90 11/21/23 02:10 86 20 11/21/23 02:00 88 23 11/21/23 01:50 85 26 H 154/108 H 11/21/23 01:40 85 18 11/21/23 01:30 85 21 11/21/23 01:20 86 28 H 11/21/23 01:16 85 21 11/21/23 01:15 85 11/21/23 00:47 36.6 C 87 22 154/94 H Pulse Ox O2 Del Method O2 Flow Rate 11/21/23 12:30 100 Room Air 4 11/21/23 12:22 98 Oxymask 8 11/21/23 11:09 93 Room Air 11/21/23 10:00 91 Room Air 11/21/23 09:30 92 Room Air 11/21/23 09:21 11/21/23 09:00 92 Room Air 11/21/23 08:30 93 Room Air 11/21/23 08:00 93 Room Air 11/21/23 07:30 94 Room Air 11/21/23 06:00 11/21/23 06:00 11/21/23 05:50 11/21/23 05:40 11/21/23 05:30 11/21/23 05:30 91 Room Air 11/21/23 05:20 11/21/23 05:16 11/21/23 05:10 11/21/23 05:00 11/21/23 04:50 11/21/23 04:44 96 Room Air 11/21/23 04:44 11/21/23 04:40 11/21/23 04:38 11/21/23 04:10 11/21/23 04:00 11/21/23 03:50 11/21/23 03:40 11/21/23 03:30 11/21/23 03:20 90 11/21/23 03:10 90 11/21/23 03:09 90 11/21/23 03:09 90 11/21/23 03:03 92 11/21/23 02:10 92 11/21/23 02:00 91 11/21/23 01:50 90 11/21/23 01:40 93 11/21/23 01:30 93 11/21/23 01:20 11/21/23 01:16 92 11/21/23 01:15 11/21/23 00:47 95 Room Air Pain Intensity Right Flank: Pain Intensity: 5 Transfer of Care Handoff Completed per policy Notes Mental Status: alert / awake / arousable and participated in evaluation Patient Amnestic to Procedure: Yes Nausea / Vomiting: adequately controlled Pain: adequately controlled Airway Patency, RR, SpO2: stable & adequate BP & HR: stable & adequate Hydration State: stable & adequate Anesthetic Complications: no major complications apparent and Pt Satisfied with anesthetic care
[2023-11-21] MEDS ORDERED: ACETAMINOPHEN 1000 MG/100 ML IV IV PRN (13:46)
[2023-11-21] MEDS: ONDANSETRON INJ 2 MG/ML 2 ML VIAL IV PRN (14:03)
[2023-11-21] MEDS: PANTOprazole 40 MG in SYRINGE 0 ML IV SCH (14:36)
[2023-11-21] MEDS: TAMSULOSIN HCL 0.4 MG CAP PO SCH (17:49)
[2023-11-21] MEDS: lamoTRIgine 100 MG TAB PO SCH (20:15)
[2023-11-21] MEDS: METOPROLOL SUCC 50MG EXT REL TAB PO SCH (20:16)
[2023-11-21] MEDS: clonazePAM 1 MG TAB PO SCH (20:21)
[2023-11-21] MEDS: ACETAMINOPHEN 500 MG TAB PO PRN (23:32)
[2023-11-22] MEDS: cefTRIAXone SODIUM 2,000 MG in DEXTROSE 5 % MINI-B 50 ML IV SCH (04:05)
[2023-11-22 07:03] LABS: Basophils # (auto) 0.04 K/uL (0.00-0.20); Basophils % (auto) 0.7 %; Eosinophils # (auto) 0.03 K/uL (0.00-0.50); Eosinophils % (auto) 0.5 %; Hematocrit (blood only) 37.3 % (37.0-47.0); Hemoglobin 12.5 g/dl (12.0-16.0); Immature Granulocytes # (auto) 0.03 K/uL (0.01-0.20); Immature Granulocytes % (auto) 0.5 %; Lymphocytes # (auto) 0.67 K/uL (1.20-3.40); Lymphocytes % (auto) 10.9 %; Mean Corpuscular Hemoglobin 31.6 pg (25.0-34.0); Mean Corpuscular Hgb Conc 33.5 g/dL (32.0-36.0); Mean Corpuscular Volume 94.2 fL (80.0-100.0); Mean Platelet Volume 10.2 fL (9.4-12.4); Monocytes # (auto) 0.63 K/uL (0.11-0.59); Monocytes % (auto) 10.3 %; Neutrophils # (auto) 4.72 K/uL (1.40-6.50); Neutrophils % (auto) 77.1 %; Platelet Count 168 K/uL (130-400); RDW Coefficient of Variation 12.9 % (11.5-14.5); RDW Standard Deviation 44.7 fL (36.4-46.3); Red Blood Count 3.96 M/uL (4.20-5.40); White Blood Count 6.12 K/ul (4.8-10.8)
[2023-11-22 07:28] LABS: Calcium 8.7 mg/dl (8.6-10.3); Creatinine Clr Calc Pharmacy 97.4 ml/min; Est GFR (African American) 74.3 ml/min; Est GFR (Non-African American) 64.1 ml/min; Magnesium 1.8 mg/dl (1.7-2.4); Potassium 2.8 mmol/L (3.5-5.1)
--- NOTE | 2023-11-22 07:47 | Urology Progress Note ---
Date of Service November 22, 2023 Assessment & Plan (1) Hydronephrosis of right kidney: (2) Obstruction of right ureteropelvic junction (UPJ) due to stone: (3) Urinary tract infection: Plan 43yo/F admitted with an obstructing 8mm R UPJ stone, S/P right stent placement on 11/21/2023 due to concerns of infection. - Pt is currently without tachycardia or fever, hypertension noted this morning. - Labs today reviewed - No leukocytosis and normal renal function. - Urine culture pending. Adjust antibiotics accordingly. - Handling stent appropriately. - Continue antibiotics, prn analgesics, prn antiemetics. - Other medical management per primary team -Urology will sign off for now, please call with any questions or concerns -Will arrange outpatient follow-up for stone removal. Admission and Anticipated Discharge Date Admission Date: November 21, 2023 Supervising Physician Co-Signing Physician Notes I have discussed Ms. Brewer's case with ASHVIN Andrews and agree with the above documentation. Doing well this morning with no leukocytosis and normal creatinine. Potassium was somewhat low and could be supplemented. Urine culture with Proteus and other gram-negative bacilli, sensitivities pending. Reasonable to empirically switch to oral antibiotics and if she remains afebrile could consider discharge. Otherwise would discharge on antibiotics selected based on sensitivity data. Urology will coordinate outpatient follow-up for definitive stone removal. -Julio C Chiang MD. Subjective Patient resting comfortably in bed. Denies nausea, vomiting, fevers, chills, hematuria, dysuria. She did have urgency and frequency associated with the stent, but denies stent pain. 11/22/2023 WBCs 6.12 Creatinine 1.05 Review of Systems Constitutional: as per Subjective / HPI Genitourinary: as per Subjective / HPI Results & Data Vital Signs (Past 12 Hours) Vital Signs Temp Pulse Resp BP Pulse Ox O2 Del Method 11/22/23 07:29 37.1 C 87 18 149/83 H 93 Room Air 11/22/23 03:36 37.0 C 92 H 14 137/80 96 Room Air 11/21/23 23:26 37.5 C 101 H 14 122/81 94 Room Air 11/21/23 22:50 Room Air PG Care Time/CCT Total # of Minutes Spent Total Time Spent with Patient: Total time spent is greater than 50% in coordination of care (as documented) at patient's floor/unit and/or counseling patient: Coding Level of Care Code 78820 SUB INP/OBS CARE Diagnoses Hydronephrosis of right kidney N13.30 Obstruction of right ureteropelvic junction (UPJ) due to stone N20.1 Acute pyelonephritis N10 Urinary tract infection type: acute pyelonephritis (3) Urinary tract infection Urinary tract infection type: acute pyelonephritis Qualified Code(s): N10 - Acute pyelonephritis
[2023-11-22] MEDS: DULoxetine HCL 30 MG CAP PO SCH (08:05)
[2023-11-22] MEDS: DULoxetine HCL 60 MG CAP PO SCH (08:06)
[2023-11-22] MEDS: POTASSIUM CHLORIDE CRTAB 20 MEQ TABCR PO SCH (09:20)
[2023-11-22] MEDS: POTASSIUM CHLORIDE / WTR 10 MEQ/100 ML PLCT IV SCH (09:21)
[2023-11-22 15:06] LABS: Calcium 8.7 mg/dl (8.6-10.3); Creatinine Clr Calc Pharmacy 102.2 ml/min; Est GFR (African American) 78.8 ml/min; Potassium 3.2 mmol/L (3.5-5.1)
--- NOTE | 2023-11-22 15:34 | Discharge Summary ---
Discharge Summary Date of Service November 22, 2023 Notes For Next Care Provider Ms. Brewer presented with flank pain, found to be hydronephrosis and right kidney stone. Stent was placed on 11/20. Discharged on ciprofloxacin, Flomax and potassium supplementation. With urology follow-up -Urine culture pending, patient instructed to call on [phone] to make sure the ciprofloxacin is sensitive and she does not need another antibiotic -Hypokalemia, improving day of discharge. Prescribed 20 mill equivalents x 5 days, recommended to hold lisinoprilhydrochlorothiazide, would recommend repeat BMP in 1 week Medication Changes From Visit Ciprofloxacin 500 mg twice daily x 5 days Potassium supplementation 20 mill equivalents x 5 days Flomax while stent is in place Principal Dx & Hospital Course #1 = Principal Diagnosis (1) Obstruction of right ureteropelvic junction (UPJ) due to stone: Right UPJ stone 8 x 5 x 7 mm/mild right hydronephrosis - Urine culture: Gram-negative bacilli and Proteus species - Continue Ceftriaxone, first day 11/20 --> discharged with 5 days of p.o. ciprofloxacin, instructed to call PCP or urology office to make sure that this is sensitive on 11/22 Urology consulted -Stent placed with Dr. Chiang on 11/20 -Follow urine culture Continue Flomax Discharged home with outpatient urology follow-up (2) Hypokalemia: 3.1 on admission, Mag 1.8 Was receiving K in her fluids 11/21: Potassium 2.8, received 40 mill equivalents p.o. and 20 mill equivalents IV. Recheck this afternoon was 3.2 discharge with 20 mill equivalents p.o. x 5 days Recommend BMP in 1 week. Lisinoprilhydrochlorothiazide on hold (3) Hypertension: Continue Metoprolol Hold lisinopril/HCTZ -continue to hold in the setting of hypokalemia (4) Depression: with anxiety Resume clonazepam, duloxetine, and lamotrigine post op Plan dispo: Discharged home family updated at bedisde Discussed with Urology ELVIEKylah Discharge Exam General: NAD, lying in bed, VS as above Resp: normal respiratory effort, lungs clear to auscultation CV: RRR, no murmur, Abd: normal bowel sounds, mild suprapubic tenderness, no hepatosplenomegaly Extremities: Moves all extremities, no edema Neuro: A&O x3, Updated Medication List Medication Instructions Recorded Confirmed Type cetirizine 10 mg tablet (Zyrtec) 10 mg PO QAM 12/26/18 11/21/23 History ibuprofen 800 mg tablet 800 mg PO TID PRN pain #90 tabs 03/14/21 11/21/23 Rx ondansetron 4 mg disintegrating 4 mg PO Q8H PRN nausea and 11/01/21 11/21/23 Rx tablet vomiting #10 tabs rizatriptan 10 mg tablet 10 mg PO Q2H PRN Migraine Headache 01/19/22 11/21/23 Rx #10 tabs duloxetine 60 mg capsule,delayed 60 mg PO QAM #90 caps 11/27/22 11/21/23 Rx release metoprolol succinate 100 mg 100 mg PO HS #90 tabs 04/30/23 11/21/23 Rx tablet,extended release 24 hr lamotrigine 100 mg tablet 100 mg PO BID #60 tabs 07/31/23 11/21/23 Rx clonazepam 1 mg tablet 1 mg PO HS #30 tabs 09/17/23 11/21/23 Rx duloxetine 30 mg capsule,delayed 30 mg PO DAILY #90 caps 09/27/23 11/21/23 Rx release (Cymbalta) lisinopril 20 1 tab PO BID #180 tabs 10/08/23 11/21/23 Rx mg-hydrochlorothiazide 25 mg tablet ciprofloxacin HCl 500 mg tablet 500 mg PO BID 5 days #10 tabs 11/22/23 Rx potassium chloride 20 mEq 20 meq PO QAM 5 days #5 tabs 11/22/23 Rx tablet,extended release(part/cryst) tamsulosin 0.4 mg capsule 0.4 mg PO QAM 10 days #10 caps 11/22/23 Rx Hospital Stay Data Consultations 11/21/23 04:32 Consult Urology Stat ED Decision to Admit Stat Procedures Performed Operation Date: 11/21/23 14:00 Actual Procedures p Cystoscopy, Right Retrograde Pyelogram, Right Stent Placement(Right) - Julio C Chiang MD Diagnostic Imagining Performed Abdomen/Pelvis CT 11/21/23 02:20 CR Exam(s): CT ABDOMEN + PELVIS Without Contrast EXAM: CT Abdomen and Pelvis Without Intravenous Contrast CLINICAL HISTORY: Reason for exam: right side flank pain. No gallbladder. hx stones. TECHNIQUE: Axial computed tomography images of the abdomen and pelvis without intravenous contrast. Automated exposure control was utilized for the study. A dose lowering technique was utilized adhering to the principles of ALARA. COMPARISON: No relevant prior studies available. FINDINGS: Limitations: Limited evaluation in the absence of contrast. Lung bases: Unremarkable. No mass. No consolidation. ABDOMEN: Liver: Unremarkable. Gallbladder and bile ducts: Cholecystectomy changes with reservoir effect. No ductal dilation. Pancreas: Unremarkable. No ductal dilation. Spleen: Unremarkable. No splenomegaly. Adrenals: Unremarkable. No mass. Kidneys and ureters: Obstructive 8 x 5 x 7 mm calculus within the right ureteropelvic junction (not noted on hydroelectric operator imaging) with upstream mild right renal hydronephrosis with perinephric and periureteral stranding. Stomach and bowel: No evidence of bowel obstruction. Colonic diverticulosis. No evidence of diverticulitis. PELVIS: Appendix: Normal appendix. Bladder: Unremarkable. No stones. Reproductive: IUD in situ. ABDOMEN and PELVIS: Intraperitoneal space: Unremarkable. No free air. No significant fluid collection. Bones/joints: Left total hip arthroplasty changes. Degenerative changes in the spine. No acute fracture. No dislocation. Soft tissues: Umbilical hernia containing fat. Vasculature: Unremarkable. No abdominal aortic aneurysm. Lymph nodes: Unremarkable. No enlarged lymph nodes. IMPRESSION: 1. Obstructive 8 x 5 x 7 mm calculus within the right ureteropelvic junction (not noted on hydroelectric operator imaging) with upstream mild right renal hydronephrosis with perinephric and periureteral stranding. 2. No other acute findings. 3. Incidental findings as described. Communications: Verify Receipt Electronically signed by: Gavino Sloan MD 11/21/23 04:05 AM Retrograde Pyelogram 11/21/23 12:00 FL retrograde includes kub CLINICAL HISTORY: RIGHT STENT COMPARISON STUDY: CT of the abdomen and pelvis performed earlier today. FLUOROSCOPY TIME: 10 seconds. Ka, r: 8.86 mGy FLUOROSCOPIC IMAGES: 2 FINDINGS: Fluoroscopy was provided during right retrograde pyelogram with right ureteral stent placement. The proximal aspect of the stent projects over the right collecting system. IMPRESSION: Fluoroscopy provided during right retrograde pyelogram and right ureteral stent placement. ACT 112: Negative or not required by law. Electronically signed by: Kenroy Rasheed M.D. 11/21/2023 12:27 PM Pending Results Patient Have Any Pending Studies at Discharge: No Discharge Instructions Given to Patient (Per Discharging Provider) Ms. Brewer, You were hospitalized after having severe right-sided flank pain, which CT scan showed a large kidney stone. You underwent stent placement with Dr. Chiang on 11/20. The urology office should contact you in regards to removal of the stent. Continue to strain your urine You are also be treated for a urinary tract infection, you received IV antibiotics while you are admitted. You will be discharged with oral ciprofloxacin 500 mg every 12 hours. This will start 4/19 AM for 5 days. You should call your PCP or Urology office tomorrow to make sure that this an tibiotic is appropriate as your urine culture will not be finalized until tomorrow morning. You should continue on Flomax while the stent is in place, this prescription was sent to your pharmacy. Continue Tylenol for pain control. During your stay, you are also found to have a low potassium level. This was replaced orally and through your IV. You will be given 5 days worth of pot assium supplementation. Your PCP will likely want to recheck your labs in 1 to 2 weeks. Do not take your lisinopril-HCTZ until this is rechecked. Take your medications as instructed; do not skip a dose of your medicines. Make sure all of your doctors know every medicine you are taking (including [id number] medicines, vitamins, and supplements). Call your primary care provider before taking any new medicines (including over- the-counter medicines, vitamins, and supplements), because some of these may interact with your current medications, or may make your symptoms worse. Tell your primary care provider if you cannot afford your medications. Activity: You can do normal everyday activities as your body allows. Take rest breaks if you feel tired. Do not overexert. Stop activity if you have pain, shortness of breath or feel dizzy. Follow-up appointments: Make an appointment with your primary care physician within one week of discharge. A copy of this summary will be sent to them. Every time you see your primary care physician, or any other doctor, bring your medication list, and a list of questions. CONTACT YOUR PRIMARY CARE PROVIDER if you experience any of the following: Shortness of breath or difficulty breathing Fevers or chills Feeling tired with normal activity or experiencing dizziness or fainting Difficulty following your treatment plan, or difficulty taking medications CALL 911 OR GO TO THE EMERGENCY DEPARTMENT if you experience any of the following: Severe abdominal pain or nausea/vomiting Severe chest pain, or chest pain that radiates (moves) to your jaw or arm Sudden, severe shortness of breath or difficulty breathing Thank you for allowing us to participate in your care. Total Time Total Time Spent Total Time Spent (In Minutes): Time spend day of discharge 40 minutes including direct patient care, medication reconciliation, documentation, review of labs and images, and coordination of care. Coding Level of Care Code 24419 INP/OBS DISCH >30 MIN Diagnoses Obstruction of right ureteropelvic junction (UPJ) due to stone N20.1 Hypokalemia E87.6 Primary hypertension I10 Hypertension type: primary hypertension Persistent depressive disorder F34.1 Depression Type: persistent depressive disorder
== END 2023-11-22 16:38 | disposition home or self-care (01) | DRG 660 ==
LOC: SUATTDRO → ED 00:46 → SUATTDRO 05:52 → EDINP 05:52 → 3W 13:47